=== PATIENT | male | born 1950 | race Caucasian/White ===

== ENCOUNTER 2017-04-11 12:53 | Emergency (ER) | payer MEDICARE, OTHER, SELFPAY ==
[2017-04-11 12:53] VITALS: BP 191/123; PULSE 68; RESP 28; TEMP 36.7; O2SAT 94; BMI 40.4
[2017-04-11 13:03] VITALS: BP 214/110; PULSE 70; RESP 16; O2SAT 93
[2017-04-11 13:05] VITALS: O2SAT 97
--- NOTE | 2017-04-11 13:39 | EKG12_ITS ---
Test Reason : SOB/HTN Blood Pressure : / mmHG Vent. Rate : 070 BPM Atrial Rate : 070 BPM P-R Int : 152 ms QRS Dur : 152 ms QT Int : 444 ms P-R-T Axes : 031 -30 005 degrees QTc Int : 479 ms Normal sinus rhythm Left axis deviation Right bundle branch block Abnormal ECG Confirmed by HOWARD CORBETT ([id number]), purchase request editor ADELINA BALL ([id number] on 04/15/2017 1:07:27 PM Referred By: IGNACIA Confirmed By:HOWARD CORBETT
--- NOTE | 2017-04-11 13:39 | RAD_ITS ---
STUDY: X-RAY CHEST REASON FOR EXAM: Male, 66 years old. Chest pain. TECHNIQUE: PA and lateral views of the chest. COMPARISON: None. FINDINGS: EKG electrodes are seen. The lungs are clear and expanded. There is no demonstrated pleural abnormality. Normal size heart. Normal mediastinum and nasir. Normal visualized pulmonary arteries. Normal visualized aortic arch and descending thoracic aorta. Normal visualized thoracic spine. Normal visualized ribs, clavicles, and shoulders. There is no demonstrated abnormality of the visualized soft tissue structures of the upper abdomen. RAD/Chest PA and Lateral IMPRESSION: Normal x-ray examination of the chest. Electronically Signed: Naldo Enriquez MD at 14:49 EST Tel [phone], Service support ,
[2017-04-11 13:44] VITALS: O2SAT 97
--- NOTE | 2017-04-11 13:45 | ED.DCSUM_ITS ---
- ER Visit Summary Date of Service: 04/11/17 Chief Complaint: Shortness of breath History of Present Illness: The patient is a 66 M since last evening he has been short of breath. He does have a history of hypertension and is currently on 3 different antihypertensive medications. He was recently started on hydralazine yesterday. He denies any history of DVT or PE. He has no chest pain. No pleuritic chest pain. No hemoptysis. He has had no calf or leg pain or swelling. He denies any recent travel, surgery or mobilization. He did have flulike symptoms approximately 5 weeks ago. He denies any fever. He denies any black stool. Denies any significant cough. No hemoptysis. Physical Examination: Well appearing male. Vital signs are stable afebrile. His pulse ox is only 93% room air no signs of hypoxia. He states he feels much better on the oxygen. HEENT exam unremarkable. Neck nontender no lymphadenopathy no JVD. Lungs clear to auscultation bilaterally. Heart regular rate and rhythm no murmur rate in the 70s. Abdomen soft nontender normal bowel sounds no peritoneal signs. He is moving all 4 extremities. Neurovascular intact. Calves are nontender without edema or cords. Neurologically is awake and alert without focal motor deficits. Test Results: CBC normal with a normal white count of 9 H&H is 17 and 51. Electrolytes unremarkable with a normal creatinine and gap. Troponin normal. EKG sinus rhythm rate is 70 with a right bundle branch block but no acute abnormality no acute signs of ischemia or NE. X-ray shows normal cardiac silhouette and mediastinum. No infiltrate. No signs of failure. No effusions. Read by myself and the radiologist. Emergency Department Course and Treatment: Older male with shortness of breath. Treatment Plan: Exam patient is doing much better at 1608. He believes that he now remembers he ate some old hotdogs and thinks he had food poisoning causing his nausea and vomiting. He never had diarrhea with it. He states he is feeling much better now he wants to be discharged to home. I had a long discussion with he and his daughter went over all test results with him. Currently he meets no criteria for admission. Disposition: dc Impression: Acute dyspnea of the of uncertain etiology. History of hypertension This note was generated with [employer] software. It may contain incorrect words, spelling, and punctuation that were not noted in review of the chart prior to signing ED Disposition - Plan for ED Patient: Chief Complaint: Shortness of Breath Referrals: Scott Obrien Chi, MD [Primary Care Provider] -
[2017-04-11 13:57] LABS: Absolute Lymphocyte Count 1.92 X10^3/ul (0.83-4.51); Absolute Neutrophil Count 6.6 X10^3/uL (2.0-7.7); Basophil# 0.02 X10^3/uL; Basophil% 0.2 % (0-1); Eosinophil# 0.01 X10^3/uL; Eosinophils% 0.1 % (0-5); Hematocrit 51.2 % (40-54); Hemoglobin 17.3 g/dl (13.0-16.5); Lymphocyte # 1.92 X10^3/ul (4.0); Lymphocyte % 20.7 % (19-41); Mean Corp Hgb Conc 33.8 g/gl (32-36); Mean Corpuscular Hgb 28.1 pg (27.0-32.0); Mean Corpuscular Volume 83.3 fL (80-94); Mean Platelet Vol. 9.6 fl (6.2-12.0); Monocyte# 0.76 X10^3/uL; Monocyte% 8.2 % (0-10); Neutrophil # 6.57 X10^3/uL (2.7-7.7); Neutrophil % 70.7 % (47-70); Platelet Count 268 K/mm3 (150-450); RBC Distribution Width CV 14.3 % (11.6-14.6); RBC Distribution Width SD 43.8 fl (35.1-43.9); Red Blood Count 6.15 M/mm3 (4.6-6.2); White Blood Count 9.3 K/mm3 (4.4-11.0)
[2017-04-11 13:59] LABS: POSITIVE COUNT NO; POSITIVE DIFFERENTIAL NO; POSITIVE MORPHOLOGY NO
[2017-04-11 14:06] LABS: Anion Gap 9 (5-15); BUN 17 mg/dL (7-18); Calcium,Total 9.9 mg/dL (8.5-10.1); Chloride 100 mmol/L (98-107); Creatinine, Serum 1.06 mg/dL (0.70-1.30); EST Glomerular Filtration Rate 74 mL/min (>60); Est Glom Filt Rate - Afr Amer 90 mL/min (>60); Estimated Creatinine Clearance 66.32 ml/min; Glucose 130 mg/dL (74-106); Potassium 3.5 mmol/L (3.5-5.1); Sodium Level 136 mmol/L (136-145)
[2017-04-11 15:35] VITALS: BP 171/99; PULSE 67; RESP 16; O2SAT 94
--- NOTE | 2017-04-11 16:12 | ED.DEP ---
ED Disposition - Plan for ED Patient: Disposition: Home or Assisted Living Chief Complaint: Shortness of Breath Instructions: ED Dyspnea Shortness of Breath Referrals: Scott Obrien Chi, MD [Primary Care Provider] - 3-5 Days if not improving Additional Instructions: Follow-up your primary care physician next week. Return to the ER if you are feeling worse. Your labs, chest x-ray and EKG were normal today.
== END 2017-04-11 16:29 | disposition home or self-care (01) ==
PROVIDERS: Emergency Provider Emergency Medicine; Family Provider Family Medicine Geriatric Medicine; PCP Family Medicine Geriatric Medicine
DX: R06.00 Dyspnea, unspecified (principal); I10 Essential (primary) hypertension; I45.10 Unspecified right bundle-branch block; R11.2 Nausea with vomiting, unspecified; E78.00 Pure hypercholesterolemia, unspecified; Z90.49 Acquired absence of other specified parts of digestive tract; Z79.899 Other long term (current) drug therapy
CPT/HCPCS: 71046; 80048; 84484; 85025; 93005; 99285; A4216

== ENCOUNTER → 2017-04-24 14:11 | Outpatient (CLI) | payer MEDICARE, OTHER, SELFPAY ==
[2017-04-24 16:28] LABS: Protein, Urine (Random) 13.6 mg/dL (<11.9); Protein:Creat Ratio 223 mg/g CRE (0-200)
[2017-04-24 16:51] LABS: Albumin, Serum 3.6 g/dL (3.2-5.0); BUN 17 mg/dL (7-18); BUN/Creat Ratio 15.2 RATIO (10-20); Chloride 103 mmol/L (98-107); Creatinine, Serum 1.12 mg/dL (0.70-1.30); EST Glomerular Filtration Rate 70 mL/min (>60); Est Glom Filt Rate - Afr Amer 84 mL/min (>60); Glucose 81 mg/dL (74-106); Phosphorus 2.9 mg/dL (2.5-4.9); Potassium 3.8 mmol/L (3.5-5.1); Sodium Level 139 mmol/L (136-145)
== END ==
PROVIDERS: Family Provider Family Medicine Geriatric Medicine; PCP Family Medicine Geriatric Medicine; Visit Provider Internal Medicine Nephrology
DX: N18.2 Chronic kidney disease, stage 2 (mild) (principal); R80.9 Proteinuria, unspecified
CPT/HCPCS: 36415; 80069; 82570; 84156

== ENCOUNTER → 2017-08-04 09:50 | Outpatient (CLI) | payer MEDICARE, OTHER, SELFPAY ==
[2017-08-04 12:56] LABS: Basophil# 0.03 X10^3/uL; Basophil% 0.4 % (0-1); Eosinophil# 0.13 X10^3/uL; Eosinophils% 1.9 % (0-5); Hematocrit 45.7 % (40-54); Hemoglobin 15.4 g/dl (13.0-16.5); Lymphocyte % 44.3 % (19-41); Mean Corp Hgb Conc 33.7 g/gl (32-36); Mean Corpuscular Hgb 29.4 pg (27.0-32.0); Mean Corpuscular Volume 87.2 fL (80-94); Mean Platelet Vol. 9.5 fl (6.2-12.0); Monocyte# 0.72 X10^3/uL; Monocyte% 10.3 % (0-10); Neutrophil % 42.8 % (47-70); Platelet Count 233 K/mm3 (150-450); RBC Distribution Width CV 14.9 % (11.6-14.6); RBC Distribution Width SD 48.3 fl (35.1-43.9); Red Blood Count 5.24 M/mm3 (4.6-6.2)
[2017-08-04 12:58] LABS: POSITIVE COUNT NO; POSITIVE DIFFERENTIAL NO; POSITIVE MORPHOLOGY NO
[2017-08-04 13:19] LABS: Vitamin D,25 Hydroxy 19.8 ng/mL (29.95-100.01)
[2017-08-04 13:27] LABS: AST(SGOT) 20 U/L (15-37); Alanine Aminotransfer ALT/SGPT 26 U/L (16-61); Albumin, Serum 3.6 g/dL (3.2-5.0); Alkaline Phosphatase 82 U/L (45-117); Anion Gap 9 (5-15); BUN 18 mg/dL (7-18); BUN/Creat Ratio 15.5 RATIO (10-20); Chloride 104 mmol/L (98-107); Creatinine, Serum 1.16 mg/dL (0.70-1.30); EST Glomerular Filtration Rate 67 mL/min (>60); Est Glom Filt Rate - Afr Amer 81 mL/min (>60); Globulin 3.7 g/dL (2.2-4.2); Glucose 97 mg/dL (74-106); PSA,Total - Annual Screen 4.98 ng/mL (0.00-4.00); Potassium 3.8 mmol/L (3.5-5.1); Protein, Total 7.3 g/dL (6.4-8.2); Sodium Level 142 mmol/L (136-145); Thyroid Stim Hormone (TSH) 1.94 uIU/mL (0.358-3.74)
[2017-08-05 14:42] LABS: Hep C Antibodies <0.1 s/co ratio (0.0-0.9)
== END ==
PROVIDERS: Family Provider Family Medicine Geriatric Medicine; PCP Family Medicine Geriatric Medicine; Visit Provider Family Medicine Geriatric Medicine
DX: E55.9 Vitamin D deficiency, unspecified (principal); I10 Essential (primary) hypertension; F52.8 Other sexual dysfunction not due to a substance or known physiological condition; Z12.5 Encounter for screening for malignant neoplasm of prostate; Z13.89 Encounter for screening for other disorder
CPT/HCPCS: 36415; 80053; 82306; 84153; 84403; 84443; 85025; 86803; G0103

== ENCOUNTER → 2017-09-25 11:23 | Outpatient (CLI) | payer MEDICARE, OTHER, SELFPAY | PROVIDERS: Family Provider Family Medicine Geriatric Medicine; PCP Family Medicine Geriatric Medicine; Visit Provider Internal Medicine Cardiovascular Disease | DX: R00.1 Bradycardia, unspecified (principal) | CPT/HCPCS: 93225; 93226 ==

== ENCOUNTER → 2018-02-02 13:49 | Outpatient (CLI) | payer MEDICARE, OTHER, SELFPAY ==
[2017-09-25 10:37] VITALS: BMI 43.7
[2018-02-02 15:04] LABS: Absolute Lymphocyte Count 4.11 X10^3/ul (0.83-4.51); Absolute Neutrophil Count 3.3 X10^3/uL (2.0-7.7); Basophil# 0.04 X10^3/uL; Basophil% 0.5 % (0-1); Eosinophils% 2.3 % (0-5); Hematocrit 45.9 % (40-54); Hemoglobin 14.7 g/dl (13.0-16.5); Lymphocyte # 4.11 X10^3/ul (4.0); Lymphocyte % 48.2 % (19-41); Mean Corpuscular Hgb 28.4 pg (27.0-32.0); Mean Corpuscular Volume 88.6 fL (80-94); Mean Platelet Vol. 9.5 fl (6.2-12.0); Monocyte# 0.84 X10^3/uL; Monocyte% 9.8 % (0-10); Neutrophil # 3.33 X10^3/uL (2.7-7.7); Neutrophil % 39.1 % (47-70); Platelet Count 206 K/mm3 (150-450); RBC Distribution Width CV 13.7 % (11.6-14.6); RBC Distribution Width SD 44.3 fl (35.1-43.9); Red Blood Count 5.18 M/mm3 (4.6-6.2); White Blood Count 8.5 K/mm3 (4.4-11.0)
[2018-02-02 15:08] LABS: POSITIVE COUNT NO; POSITIVE DIFFERENTIAL NO; POSITIVE MORPHOLOGY NO; Protein, Urine (Random) < 6.0 mg/dL (<11.9)
[2018-02-02 15:28] LABS: Vitamin D,25 Hydroxy 38.5 ng/mL (29.95-100.01)
[2018-02-02 15:41] LABS: AST(SGOT) 20 U/L (15-37); Alanine Aminotransfer ALT/SGPT 24 U/L (16-61); Albumin, Serum 3.6 g/dL (3.2-5.0); Alkaline Phosphatase 74 U/L (45-117); Anion Gap 6 (5-15); BUN 16 mg/dL (7-18); BUN/Creat Ratio 15.2 RATIO (10-20); Calcium,Total 9.2 mg/dL (8.5-10.1); Chloride 104 mmol/L (98-107); Creatinine, Serum 1.05 mg/dL (0.70-1.30); EST Glomerular Filtration Rate 75 mL/min (>60); Est Glom Filt Rate - Afr Amer 91 mL/min (>60); Globulin 3.6 g/dL (2.2-4.2); Glucose 89 mg/dL (74-106); Phosphorus 2.6 mg/dL (2.5-4.9); Potassium 3.6 mmol/L (3.5-5.1); Protein, Total 7.2 g/dL (6.4-8.2); Sodium Level 140 mmol/L (136-145); Thyroid Stim Hormone (TSH) 1.84 uIU/mL (0.358-3.74)
--- OUTSIDE RECORDS SUMMARY | 2018-05-07 05:22 | XMS RPT_ITS ---
:1950 Author Organization OHIP Support Name Relationship Address Phone R Unavailable Unavailable Unavailable KRIS CLEMONS Unavailable [address] + [place] [address] RONNIE CLEMONS Unavailable 1 + [place] [address] R Unavailable Unavailable Unavailable KRIS CLEMONS Unavailable [address] + [place] [address] RONNIE CLEMONS Unavailable 1 + [place] [address] R Unavailable Unavailable Unavailable KACIKRIS GARCIA Unavailable [address] + [place] [address] RONNIE CLEMONS Unavailable 1 + [place] [address] R Unavailable Unavailable Unavailable KRIS CLEMONS Unavailable [address] + [place] [address] RONNIE CLEMONS Unavailable 1 + [place] [address] R Unavailable Unavailable Unavailable KRIS CLEMONS Unavailable [address] + [place] [address] RONNIE CLEMONS Unavailable 1 + [place] [address] R Unavailable Unavailable Unavailable KRIS CLEMONS Unavailable [address] + [place] [address] RONNIE CLEMONS Unavailable Unavailable + R Unavailable Unavailable Unavailable KRIS CLEMONS Unavailable [address] + [place] [address] RONNIE CLEMONS Unavailable . + ., [place] . R Unavailable Unavailable Unavailable KRIS CLEMONS Unavailable [address] + [place] [address] RONNIE CLEMONS Unavailable 1 + [place] [address] R Unavailable Unavailable Unavailable KRIS CLEMONS Unavailable [address] + [place] [address] R Unavailable Unavailable Unavailable KRIS CLEMONS Unavailable [address] + [place] [address] R Unavailable Unavailable Unavailable KACIKRIS GARCIA Unavailable [address] + [place] [address] R Unavailable Unavailable Unavailable KRIS CLEMONS Unavailable [address] + [place] [address] R Unavailable Unavailable Unavailable KACIKRIS GARCIA Unavailable [address] + [place] [address] R Unavailable Unavailable Unavailable KRIS CLEMONS Unavailable [address] + [place] [address] Care Team Providers Name Role Phone Micah, Scott Chi Attending Unavailable Micah, Scott Chi Primary Care Unavailable Rocio De La Vega Attending Unavailable Micah, Scott Chi Primary Care Unavailable Micah, Scott Chi Primary Care Unavailable Houston Caro Attending Unavailable Rocio De La Vega Attending Unavailable Rocio De La Vega Referring Unavailable Micah, Scott Chi Primary Care Unavailable Rocio De La Vega Attending Unavailable Micah, Scott Chi Primary Care Unavailable Christy Rodriguez Attending Unavailable Rocio De La Vega Attending Unavailable Micah, Scott Chi Primary Care Unavailable Micah, Scott Chi Attending Unavailable Micah, Scott Chi Primary Care Unavailable Christy Rodriguez Attending Unavailable Christy Rodriguez Attending Unavailable MoodisRonan morgan Attending Unavailable Micah, Scott Chi Referring Unavailable Micah, Scott Chi Primary Care Unavailable Ronan Jain Attending Unavailable Ronan Jain Referring Unavailable Micah, Scott Chi Primary Care Unavailable Ronan Jain Attending Unavailable Micah, Scott Chi Referring Unavailable Micah, Scott Chi Primary Care Unavailable Ronan Jain Attending Unavailable Ronan Jain Referring Unavailable PROBLEMS PROBLEMS DATE TYPE CONDITION / CODE ATTENDING STATUS SOURCE 02/11/2018 Unknown N18.2 - Chronic Rocio De La Vega Active [place] kidney disease, Community stage 2 (mild) / Hospital N18.2(ICD-10) Repository 02/11/2018 Unknown R80.9 - Proteinuria, Rocio De La Vega Active [place] unspecified / Community R80.9(ICD-10) Hospital Repository 10/13/2017 Unknown I45.10 - Unspecified MoodispawRonan Active [place] right bundle-branch Community block / Hospital I45.10(ICD-10) Repository 10/13/2017 Unknown I49.3 - Ventricular Moodispamaged, Ronan Active [place] premature Community depolarization / Hospital I49.3(ICD-10) Repository 09/25/2017 Unknown I10 - Essential MoodispawRonan Active [place] (primary) Community hypertension / Hospital I10(ICD-10) Repository 10/27/2017 Unknown R00.1 - Bradycardia, Moodispaw, Ronan Active [place] unspecified / Community R00.1(ICD-10) Hospital Repository 08/04/2017 Unknown E55.9 - Vitamin D Micah, Scott Chi Active [place] deficiency, Community unspecified / Hospital E55.9(ICD-10) Repository 08/04/2017 Unknown 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.8 - Other sexual Micah, Scott Chi [facility] [place] dysfunction not due Community to a substance or Hospital known physiological Repository condition / F52.8(ICD-10) 08/04/2017 Unknown Z12.5 - Encounter Micah, Scott Chi [facility] [place] for screening for Community malignant neoplasm Hospital of prostate / Repository Z12.5(ICD-10) 08/04/2017 Unknown Z13.89 - Encounter Micah, Scott Chi [facility] [place] for screening for Community other disorder / Hospital Z13.89(ICD-10) Repository PROCEDURES PROCEDURES No Procedure Records FoundRESULTS RESULTS CBC W/DIFF, AUTOMATED Collected: 02/02/2018 Status: F Source: [place] 1:53 PM [facility] REPOSITORY Order Comment: DR DE LA VEGA ORDERED RENAL,PROTEIN CREATININE URINE ONLY TYPE CODE TESTS RESULT OUT OF RANGE REFERENCE UNITS LAB L100.1000 4.4-11.0 K/mm3 Normal WBC 8.5 LAB L100.1200 4.6-6.2 M/mm3 Normal RBC 5.18 LAB L100.1300 13.0-16.5 g/dl Normal HGB 14.7 LAB L100.1400 40-54 % Normal HCT 45.9 LAB L100.1500 80-94 fL Normal MCV 88.6 LAB L100.1600 27.0-32.0 pg Normal MCH 28.4 LAB L100.1700 32-36 g/gl Normal MCHC 32.0 LAB L100.1810 11.6-14.6 % Normal RDW CV 13.7 LAB L100.1820 35.1-43.9 fl High RDW SD 44.3 LAB L100.1900 150-450 K/mm3 Normal PLT 206 LAB L100.2000 6.2-12.0 fl Normal MPV 9.5 LAB L100.2100 47-70 % Low NEUT% 39.1 LAB L100.2200 19-41 % High LY% 48.2 LAB L100.2300 0-10 % Normal MONO% 9.8 LAB L100.2400 0-5 % Normal EO% 2.3 LAB L100.2500 0-1 % Normal BASO% 0.5 LAB L100.2550 0.0-0.9 % Normal IM GRAN % 0.100 Result Comment: IG% - Immature Granulocytes (promyelocytes, myelocytes and metamyelocytes) > 1% indicates that a LEFT SHIFT is Present. LAB L100.2620 2.0-7.7 X10 3/uL Normal Absolute Neut 3.3 LAB L100.2720 0.83-4.51 X10 3/ul Normal Absolute Lymph 4.11 Performed By: #### L100.0100 #### [facility] [address] [place], [place], [id number] PROTEIN+CREATININE Collected: Status: F Source: [place] RATIO,URINE 02/02/2018 1:53 PM [facility] REPOSITORY Order Comment: DR DE LA VEGA ORDERED RENAL,PROTEIN CREATININE URINE ONLY TYPE CODE TESTS RESULT OUT OF RANGE REFERENCE UNITS LAB L501.1200 NO RANGE EST. mg/dL 31.90 Normal UR CREAT LAB L501.1930 <11.9 mg/dL < 6.0 Normal PROTEIN,UR. RAN. LAB L501.1940 0-200 mg/g CRE Test Normal not performed PROT:CRE RATIO Performed By: #### L501.0900 #### [facility] [address] [place], [place], [address] VITAMIN D,25 HYDROXY Collected: 02/02/2018 Status: F Source: [place] 1:53 PM [facility] REPOSITORY Order Comment: DR DE LA VEGA ORDERED RENAL,PROTEIN CREATININE URINE ONLY TYPE CODE TESTS RESULT OUT OF RANGE REFERENCE UNITS LAB L506.1000 29.95-100.01 ng/mL Normal Vitamin D 38.5 25-OH Result Comment: Vitamin D 25(OH) Status Range Deficiency <20 ng/mL (50nmol/L) Insuffciency 20 - 30 ng/mL (50 - 75 nmol/L) Sufficiency 30 - 100 ng/mL (75 - 250 nmol/L) Toxicity >100 ng/mL (>250 nmol/L) Performed By: #### L506.1000, L509.3000 #### [facility] [address] [place], [address] TESTOSTERONE, SERUM TOTAL Collected: 02/02/2018 Status: F Source: [place] 1:53 PM [facility] REPOSITORY Order Comment: DR DE LA VEGA ORDERED RENAL,PROTEIN CREATININE URINE ONLY TYPE CODE TESTS RESULT OUT OF REFERENCE UNITS RANGE LAB L509.3000 ng/dL Testosterone Normal 274.07 Result Comment: NORMAL REFERENCE RANGES MALE AGE <50 123.06 - 813.86 ng/dL MALE AGE >50 89.98 - 780.10 ng/dL FEMALE PREMENOPAUSE AGE 21 - 60 9.01 - 47.94 ng/dL FEMALE POSTMENOPAUSE AGE 45 - 89 <7.00 - 45.62 ng/dL REFERENCE RANGE AND METHODOLOGY CHANGED 02/05/2017 Performed By: #### L506.1000, L509.3000 #### [facility] [address] [place], [place], [address] COMPREHENSIVE METABOLIC Collected: 02/02/2018 Status: F Source: [place] PROFIL 1:53 PM [facility] REPOSITORY Order Comment: DR DE LA VEGA ORDERED RENAL,PROTEIN CREATININE URINE ONLY TYPE CODE TESTS RESULT OUT OF RANGE REFERENCE UNITS LAB L501.0100 74-106 mg/dL Normal GLU 89 Result Comment: Please note revised GLUCOSE reference range effective 2017. LAB L501.1000 7-18 mg/dL Normal BUN 16 LAB L501.1100 0.70-1.30 mg/dL Normal CREAT,SERUM 1.05 Result Comment: The validity of the calculated GFR AND GFRAA in patients over 70 years has not been determined. Clinical correlation is essential. LAB L501.1110 >60 mL/min Normal EST GFR 75 Result Comment: Non- GFR Calc LAB L501.1115 >60 mL/min Normal EST GFR - AA 91 Result Comment: GFR Calc LAB L501.1300 10-20 RATIO Normal BUN/CRE 15.2 LAB L501.1500 6.4-8.2 g/dL T Normal PROT 7.2 LAB L501.1800 3.2-5.0 g/dL Normal ALB 3.6 LAB L501.1950 2.2-4.2 g/dL Normal GLOB 3.6 LAB L501.2000 0.9-2.4 RATIO Normal A/G 1.0 LAB L501.2200 8.5-10.1 mg/dL CA Normal 9.2 LAB L501.4100 15-37 U/L Normal AST 20 LAB L501.4305 45-117 U/L Normal ALK P 74 LAB L501.4405 16-61 U/L Normal ALT 24 LAB L501.4600 0.20-1.00 mg/dL High T BILI 1.20 LAB L501.5300 136-145 mmol/L NA Normal 140 LAB L501.5600 3.5-5.1 mmol/L K Normal 3.6 LAB L501.5900 98-107 mmol/L CL Normal 104 LAB L501.6100 21.0-32.0 mmol/L Normal CO2 30.0 LAB L501.6200 5-15 Normal GAP 6 Performed By: #### L500.4050, L501.2300, L501.9520 #### [facility] [address] [place], [place], [id number] PHOSPHORUS Collected: 02/02/2018 Status: F Source: [place] 1:53 PM [facility] REPOSITORY Order Comment: DR DE LA VEGA ORDERED RENAL,PROTEIN CREATININE URINE ONLY TYPE CODE TESTS RESULT OUT OF RANGE REFERENCE UNITS LAB L501.2300 2.5-4.9 mg/dL Normal PHOS 2.6 Performed By: #### L500.4050, L501.2300, L501.9520 #### [facility] [address] [place], [place], [address] THYROID STIM HORMONE Collected: 02/02/2018 Status: F Source: [place] (TSH) 1:53 PM [facility] REPOSITORY Order Comment: DR DE LA VEGA ORDERED RENAL,PROTEIN CREATININE URINE ONLY TYPE CODE TESTS RESULT OUT OF RANGE REFERENCE UNITS LAB L501.9520 0.358-3.74 uIU/mL Normal TSH 1.84 Performed By: #### L500.4050, L501.2300, L501.9520 #### [place] [facility] [address] [place], [address] OFFICE VISIT REPORT Observed: 10/13/2017 Status: F Source: [place] 12:34 PM [facility] REPOSITORY [facility] [address] [place] [address] OFFICE VISIT Date of Service: 10/13/17 MR#: [id number] Acct: [id number] Patient: ALIN CLEMONS Rep #: [id number] : 1950 Provider: Ronan Jain MD Age/Sex: 66/M [facility] Status: Signed Intake Vital Signs10/13/17 Blood Pressure 188/90 10/13/17 Blood Pressure Location Lt brachial Intake Visit Reasons: EKG per msg from [place] [employer] Finisher Required: No Accompanied by: None Is patient in pain?: No Allergies carisoprodol Allergy (Verified 10/13/17 10:13) Rash cephalexin Allergy (Verified 10/13/17 10:13) Rash codeine Allergy (Verified 10/13/17 10:13) Vomiting morphine Allergy (Verified 10/13/17 10:13) Vomiting hydralazine Adverse Reaction (Severe, Verified 10/13/17 10:13) Headache Medications Fish Oil/Dha/Epa [Fish Oil 1,200 mg Fish Oil] 1 cap PO DAILY 10/10/14 [History Confirmed 10/13/17] Vitamin E 1,000 unit PO DAILY 10/10/14 [History Confirmed 10/13/17] Krill Oil 500 mg PO DAILY 04/11/17 [History Confirmed 10/13/17] Valsartan/Hydrochlorothiazide [Valsartan-Hctz 320-12.5 mg Tab] 1 ea PO DAILY 04/11/17 [History Confirmed 10/13/17] amlodipine 5 mg tablet 5 mg PO QDAY 08/13/17 [History Confirmed 10/13/17] clonidine 0.2 mg/24 hr weekly transdermal patch 1 patch TRANSDERMAL QWEEK 08/13/17 [History Confirmed 10/13/17] rosuvastatin 10 mg tablet 10 mg PO QDAY 09/23/17 [History Confirmed 10/13/17] ergocalciferol (vitamin D2) 50,000 unit capsule 50,000 unit PO QMONTH cap 09/25/17 [History Confirmed 10/13/17] linaclotide 145 mcg capsule 145 mcg PO QDAY 09/25/17 [History Confirmed 10/13/17] magnesium oxide 400 mg capsule 400 mg PO QDAY cap 09/25/17 [History Confirmed 10/13/17] potassium chloride ER 20 mEq tablet,extended release(part/cryst) 20 meq PO QDAY tab 09/25/17 [History Confirmed 10/13/17] nebivolol 10 mg tablet 5 mg PO QDAY tab 09/29/17 [History Confirmed 10/13/17] Assessment AND Plan Orders Orders: Nursing Note Patient here for EKG after decreasing Bystolic to 5mg. BP's at home 140-150/80's at home with HR's in the 50's. States that he feels well and that his BP's are always high in the office. Discussed with Manpreet Souza NP. Advised patient that we will keep all meds the same at this time and he should monitor his BP and heart rate at home. Patient to call if BP's are consistently higher than 140's systolic or HR is consistently below 50, or any complaints of lightheadedness or dizziness. 10/13/17 1234 <Electronically signed by Ronan Jain MD> Date Ronan Jain MD Cosigner Signature: Date (if applicable) CC: PATEL Souza 12 LEAD EKG PERFORMED Observed: 10/13/2017 Status: F Source: [place] BY NARENDRA 9:30 AM [place] [address] [place] [address] 12 Lead EKG performed by [facility] 10/13/17929 MR#: [id number] Acct: [id number] Name: ALIN CLEMONS Rep #: [id number] : 1950 66 From: Ronan Jain MD Attending Dr: Ronan Jain MD Status: DEP AMB Ordering Dr: Ronan Jain MD Date: 10/13/17 [place] [facility] Sex: M C Admitted: BMS/12 Lead EKG performed by [facility] ECG Report Interpretation Sinus Bradycardia with occasional PVCsRight bundle branch block. 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 [address] [place] [address] OFFICE VISIT Date of Service: 09/25/17 MR#: [id number] Acct: [id number] Name: ALIN CLEMONS Rep #: [id number] : 1950 Provider: Ronan Jain MD Age/Sex: 66/M Location: [facility] Status: Signed HPI HPI Details: ALIN CLEMONS, is a 66 M who presents to the office today for for outpatient cardiovascular follow-up. His last outpatient visit was on 10/10/2014. At that time he was being followed for concerns of underlying preoperative assessment based upon an abnormal ECG with a right bundle branch block pattern, hyperlipidemia, and hypertension. Since that time he has not had to return for additional cardiovascular diagnostic studies or therapeutic intervention. He states at the moment he feels well overall. He is not complaining of any ongoing issues of classic angina pectoris type symptoms at rest or with exertion. There has been no issues of obvious CHF or pulmonary edema. He denies any near syncope or syncope. He states if he stays bent over too long and then gets up quickly he can feel transiently lightheaded. He continues to monitor his blood pressures at home. He notes at home his blood pressures are usually under good control per he notes they only seem to increase when he goes to the physician's office. 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 He states he was referred back based upon concerns that he may be somewhat more bradycardic than usual. An ECG was obtained. He was in sinus bradycardia with a ventricular rate of approximately 50 bpm with his continued right bundle branch block pattern. Intake Vital Signs09/25/17 Height 5 ft 5 in 09/25/17 Weight: 263 lb 09/25/17 Body Mass Index (BMI) 43.7 09/25/17 Blood Pressure 194/90 Intake Visit Reasons: Bradycardia/Ref. [place] Allergies carisoprodol Allergy (Verified 09/25/17 10:37) Rash cephalexin Allergy (Verified 09/25/17 10:37) Rash codeine Allergy (Verified 09/25/17 10:37) Vomiting morphine Allergy (Verified 09/25/17 10:37) Vomiting hydralazine Adverse Reaction (Severe, Verified 09/25/17 10:37) Headache Medications Fish Oil/Dha/Epa [Fish Oil 1,200 mg Fish Oil] 1 cap PO DAILY 10/10/14 [History Confirmed 09/25/17] Vitamin E 1,000 unit PO DAILY 10/10/14 [History Confirmed 09/25/17] Krill Oil 500 mg PO DAILY 04/11/17 [History Confirmed 09/25/17] Valsartan/Hydrochlorothiazide [Valsartan-Hctz 320-12.5 mg Tab] 1 ea PO DAILY 04/11/17 [History Confirmed 09/25/17] amlodipine 5 mg tablet 5 mg PO QDAY 08/13/17 [History Confirmed 09/25/17] clonidine 0.2 mg/24 hr weekly transdermal patch 1 patch TRANSDERMAL QWEEK 08/13/17 [History Confirmed 09/25/17] nebivolol 10 mg tablet 10 mg PO QDAY 09/23/17 [History Confirmed 09/25/17] rosuvastatin 10 mg tablet 10 mg PO QDAY 09/23/17 [History Confirmed 09/25/17] ergocalciferol (vitamin D2) 50,000 unit capsule 50,000 unit PO QMONTH cap 09/25/17 [History Confirmed 09/25/17] linaclotide 145 mcg capsule 145 mcg PO QDAY 09/25/17 [History Confirmed 09/25/17] magnesium oxide 400 mg capsule 400 mg PO QDAY cap 09/25/17 [History Confirmed 09/25/17] potassium chloride ER 20 mEq tablet,extended release(part/cryst) 20 meq PO QDAY tab 09/25/17 [History Confirmed 09/25/17] [facility] Medical History RBBB (right bundle branch block) (Acute) Premature ventricular contraction (Acute) Hyperlipidemia (Chronic) Preop cardiovascular exam (Acute) CKD (chronic kidney disease) stage 3, GFR 30-59 ml/min (Chronic) HTN (hypertension) (Chronic) Bradycardia (Acute) Acute calculous cholecystitis (Inactive) Surgical History History of ankle surgery (Resolved) History of knee replacement procedure of left knee (Resolved) History of laparoscopic cholecystectomy (Resolved) Family History Father Sudden cardiac Myocardial infarction, Onset Age: 52 Mother Hypertension Social History Smoking Status: Never smoker alcohol intake: never ROS Const Const: Negative for fatigue, weakness, weight gain, weight loss, frequent falls or excessive sweating Eyes Eyes: Negative for change in vision, blurry vision or transient loss of vision ENT ENT: Negative for dizziness or balance problems Cardio Chest Pain: No Palpitations: No Edema: None Muscle aches with walking: None Resp Respiratory: Negative for SOB with activity or SOB at rest GI GI: Negative vomiting or vomiting blood/hematemesis : Negative for hematuria Musc Musc: Positive for joint pain (HX Arthritis); negative for balance problems, muscle aches/ myalgia or muscle weakness Skin Skin: Negative non-healing lesions or rash Neuro Neuro: Negative for weakness, blurry vision, dizziness, lightheadedness, frequent falls or orthostatic symptoms [place] Hematologic/Lymphatic: Negative for easy bleeding Endo Endo: Negative for fatigue or excessive sweating Psych Psych: Negative for anxiety or depression Allergy Allergy/Immunology: Negative for hives, Negative for rash Cardiology Exam Const Appearance: cooperative, healthy appearing, comfortable, no acute distress, well developed and well groomed Nutritional Appearance: overweight Orientation: alert, awake and oriented x3 Head Head: normal to inspection and normocephalic Ears: hearing grossly normal bilaterally Nose: external nose normal Face and Sinus: face symmetric Mouth: oral mucosae normal Teeth and gingiva: fair dentition Eyes Eyelids: eyelids normal Conjunctivae: conjunctivae normal Pupils: PERRL EOM: EOM intact bilaterally Neck Neck: normal visual inspection and full ROM Carotids: normal carotid upstroke Chest Chest inspection: normal inspection of the chest and symmetric chest movement Auscultation: Bilateral: Clear to Auscultation Cardio Palpation: normal PMI Rhythm: regular rhythm Heart sounds: S1 normal and S2 normal GI GI: normal to inspection, bowel sounds present, soft and no hepatosplenomegaly Neuro General: alert, awake, gait normal, moves all extremities, no focal sensory deficit and no focal motor deficits Skin Skin: no rashes or lesions noted Extremities Pulses: Normal: Right Radial Pulse, Left Radial Pulse Lower Extremity Edema: None: Bilateral Psych Psychological: normal affect Supplemental Info He did have a transthoracic echocardiogram on 06/26/2015. According to the report his LV was thought to be normal with an LVEF of 60% with mild concentric LVH, mild TR, and an estimated RV systolic pressure of 32 mmHg. He also underwent diagnostic cardiac catheterization at [facility] on 08/02/2009. At that time his left ventricle was normal with an LVEF of 65%. He had minimal luminal irregularities involving his LAD and LCx system. Assessment AND Plan 1. Bradycardia R00.1 Plan At the moment he does demonstrate evidence of underlying sinus bradycardia. He has had no acute symptoms associated with this. This may be secondary to his medications with respect to his beta-kannan and his clonidine/Catapres patch. At the present time he is going to go through a 24-hour Holter monitor to evaluate his average rate as well as his rhythm. Depending upon the findings consideration may be given to adjusting his rate limiting medication dosages to minimize concerning bradycardia dysrhythmias. If those medications are adjusted and his blood pressure elevates then he may need further adjustment of other antihypertensive medications that would not interfere with his underlying rate Orders Orders: 2. Premature ventricular beat I49.3 Plan He has a history of premature ventricular complexes. He will be further assessed with a 24-hour Holter monitor for any obvious concerns that would factor into his ongoing evaluation and care. Orders Orders: 3. RBBB (right bundle branch block) I45.10 Plan He does have a history of a right bundle branch block. This is not a new finding for him. He has been evaluated in the past both noninvasively and invasively. Orders Orders: 4. Hyperlipidemia, unspecified hyperlipidemia type E78.5 Plan He should continue risk factor modification and medical management as deemed appropriate 5. Essential hypertension I10 Plan He is his blood pressure is elevated today. However he states at home his blood pressure readings are within good control. This is also been documented by Dr. De La Vega's office. Thus at the moment he will continue his current medical management and follow-up. Orders Orders: Plan Detail Additional Comments Thank you for allowing me to participate in the care of your patient. Please don't hesitate to call if any issues arise. This note was generated using a voice recognition system and there may be incorrect words, spelling or punctuation that were not noted when reviewing the office note prior to saving. Follow Up 6 Months (PFM) Coding Level of Care Code Off vis,est,level 4 Diagnoses Bradycardia R00.1 Premature ventricular beat I49.3 RBBB (right bundle branch block) I45.10 Hyperlipidemia, unspecified hyperlipidemia type E78.5 Hyperlipidemia type: unspecified Essential hypertension I10 Hypertension type: essential hypertension Coding Level of Care Code Off vis,est,level 4 Diagnoses Bradycardia R00.1 Premature ventricular beat I49.3 RBBB (right bundle branch block) I45.10 Hyperlipidemia, unspecified hyperlipidemia type E78.5 Hyperlipidemia type: unspecified Essential hypertension I10 Hypertension type: essential hypertension 09/25/17 1125 <Electronically signed by Ronan Jain MD> Date Ronan Jain MD Cosigner Signature: Date (if applicable) CC: Rocio De La Vega DO; Scott Obrien MD 12 LEAD EKG PERFORMED Observed: 09/25/2017 Status: F Source: [place] BY [facility] 10:26 AM [facility] REPOSITORY [facility] [address] [place] [address] 12 Lead EKG performed by [facility] 09/25/17 1025 MR#: [id number] Acct: [id number] Name: ALIN CLEMONS Rep #: [id number] : 1950 66 From: Ronan Jain MD Attending Dr: Ronan Jain MD Status: DEP AMB Ordering Dr: Ronan Jain MD Date: 09/25/17 [facility] [facility] Sex: M C Admitted: [facility]/12 Lead EKG performed by [facility] ECG Report Interpretation Marked sinus Bradycardia Right bundle branch block. ABNORMAL Electronically signed on 09/25/2017 at 11:39 by Ronan Jain [employer] Version 8610 09/25/17 1140 Date Ronan Jain MD CC: Scott Obrien MD Date Dictated: 09/25/17 1025 Date Transcribed: 09/25/17 1025 [employer] Artillery Cannoneer: PM Signed CBC W/DIFF, AUTOMATED Collected: 08/04/2017 Status: F Source: JAM 9:56 AM [facility] REPOSITORY TYPE CODE TESTS RESULT OUT OF RANGE REFERENCE UNITS LAB L100.1000 4.4-11.0 K/mm3 Normal WBC 7.0 LAB L100.1200 4.6-6.2 M/mm3 Normal RBC 5.24 LAB L100.1300 13.0-16.5 g/dl Normal HGB 15.4 LAB L100.1400 40-54 % Normal HCT 45.7 LAB L100.1500 80-94 fL Normal MCV 87.2 LAB L100.1600 27.0-32.0 pg Normal MCH 29.4 LAB L100.1700 32-36 g/gl Normal MCHC 33.7 LAB L100.1810 11.6-14.6 % High RDW CV 14.9 LAB L100.1820 35.1-43.9 fl High RDW SD 48.3 LAB L100.1900 150-450 K/mm3 Normal PLT 233 LAB L100.2000 6.2-12.0 fl Normal MPV 9.5 LAB L100.2100 47-70 % Low NEUT% 42.8 LAB L100.2200 19-41 % High LY% 44.3 LAB L100.2300 0-10 % High MONO% 10.3 LAB L100.2400 0-5 % Normal EO% 1.9 LAB L100.2500 0-1 % Normal BASO% 0.4 LAB L100.2550 0.0-0.9 % Normal IM GRAN % 0.300 Result Comment: IG% - Immature Granulocytes (promyelocytes, myelocytes and metamyelocytes) > 1% indicates that a LEFT SHIFT is Present. LAB L100.2620 2.0-7.7 X10 3/uL Normal Absolute Neut 3.0 LAB L100.2720 0.83-4.51 X10 3/ul Normal Absolute Lymph 3.10 Performed By: #### L100.0100 #### [facility] [address] [place], [place], [address] VITAMIN D,25 HYDROXY Collected: 08/04/2017 Status: F Source: VARNELL 9:56 AM [facility] REPOSITORY TYPE CODE TESTS RESULT OUT OF REFERENCE UNITS RANGE LAB L506.1000 29.95-100.01 ng/mL Low Vitamin D 19.8 25-OH Result Comment: Vitamin D 25(OH) Status Range Deficiency <20 ng/mL (50nmol/L) Insuffciency 20 - 30 ng/mL (50 - 75 nmol/L) Sufficiency 30 - 100 ng/mL (75 - 250 nmol/L) Toxicity >100 ng/mL (>250 nmol/L) Performed By: #### L506.1000, L509.3000 #### [facility] [address] [facility]. [place], [place], [address] TESTOSTERONE, SERUM TOTAL Collected: 08/04/2017 Status: F Source: JAM 9:56 AM [facility] REPOSITORY TYPE CODE TESTS RESULT OUT OF REFERENCE UNITS RANGE LAB L509.3000 ng/dL Testosterone Normal 284.11 Result Comment: NORMAL REFERENCE RANGES MALE AGE <50 123.06 - 813.86 ng/dL MALE AGE >50 89.98 - 780.10 ng/dL FEMALE PREMENOPAUSE AGE 21 - 60 9.01 - 47.94 ng/dL FEMALE POSTMENOPAUSE AGE 45 - 89 <7.00 - 45.62 ng/dL REFERENCE RANGE AND METHODOLOGY CHANGED 02/05/2017 Performed By: #### L506.1000, L509.3000 #### [facility] [address] [place], [place], [address] COMPREHENSIVE METABOLIC Collected: 08/04/2017 Status: F Source: [facility] 9:56 AM [facility] REPOSITORY TYPE CODE TESTS RESULT OUT OF RANGE REFERENCE UNITS LAB L501.0100 74-106 mg/dL Normal GLU 97 Result Comment: Please note revised GLUCOSE reference range effective 2017. LAB L501.1000 7-18 mg/dL Normal BUN 18 LAB L501.1100 0.70-1.30 mg/dL Normal CREAT,SERUM 1.16 Result Comment: The validity of the calculated GFR AND GFRAA in patients over 70 years has not been determined. Clinical correlation is essential. LAB L501.1110 >60 mL/min Normal EST GFR 67 Result Comment: Non- GFR Calc LAB L501.1115 >60 mL/min Normal EST GFR - AA 81 Result Comment: GFR Calc LAB L501.1300 10-20 RATIO Normal BUN/CRE 15.5 LAB L501.1500 6.4-8.2 g/dL T Normal PROT 7.3 LAB L501.1800 3.2-5.0 g/dL Normal ALB 3.6 LAB L501.1950 2.2-4.2 g/dL Normal GLOB 3.7 LAB L501.2000 0.9-2.4 RATIO Normal A/G 1.0 LAB L501.2200 8.5-10.1 mg/dL CA Normal 9.0 LAB L501.4100 15-37 U/L Normal AST 20 LAB L501.4305 45-117 U/L Normal ALK P 82 LAB L501.4405 16-61 U/L Normal ALT 26 LAB L501.4600 0.20-1.00 mg/dL T Normal BILI 0.90 LAB L501.5300 136-145 mmol/L NA Normal 142 LAB L501.5600 3.5-5.1 mmol/L K Normal 3.8 LAB L501.5900 98-107 mmol/L CL Normal 104 LAB L501.6100 21.0-32.0 mmol/L Normal CO2 29.0 LAB L501.6200 5-15 Normal GAP 9 Performed By: #### L500.4050, L501.9520, L501.9910 #### [facility] [address] [place], [address] THYROID STIM HORMONE Collected: 08/04/2017 Status: F Source: JAM (TSH) 9:56 AM [facility] REPOSITORY TYPE CODE TESTS RESULT OUT OF RANGE REFERENCE UNITS LAB L501.9520 0.358-3.74 uIU/mL Normal TSH 1.94 Performed By: #### L500.4050, L501.9520, L501.9910 #### [facility] [address] [place], [place], [address] PSA,TOTAL - ANNUAL Collected: 08/04/2017 Status: F Source: JAM SCREEN 9:56 AM [facility] REPOSITORY TYPE CODE TESTS RESULT OUT OF REFERENCE UNITS RANGE LAB L501.9910 0.00-4.00 ng/mL High PSA,TOT 4.98 SCREEN Result Comment: This test was performed using the TPSA assay method for the MedAdherence chemistry system. Values obtained with different assay methods cannot be used interchangably. When changing PSA assays in the course of monitoring a patient, additional sequential testing should be carried out to confirm baseline values. Performed By: #### L500.4050, L501.9520, L501.9910 #### [facility] [address] [place], [place], [address] HEPATITIS C ANTIBODIES Collected: 08/04/2017 Status: F Source: JAM 9:56 AM [facility] REPOSITORY TYPE CODE TESTS RESULT OUT OF RANGE REFERENCE UNITS LAB L3100.0650 0.0-0.9 s/co ratio Normal HEP C AB <0.1 Result Comment: Negative: < 0.8 Indeterminate: 0.8 - 0.9 Positive: > 0.9 The CDC recommends that a positive HCV antibody result be followed up with a HCV Nucleic Acid Amplification test (166158). Performed at: [facility] [id number] Morning Show Host: Noe Cho PhD, Phone: [phone] Performed By: #### L3100.0625 #### [facility] (refer to report for specific site) refer to report for address and phone number PROTEIN+CREATININE Collected: Status: F Source: [facility] 04/24/2017 2:20 PM [facility] REPOSITORY TYPE CODE TESTS RESULT OUT OF RANGE REFERENCE UNITS LAB L501.1200 NO RANGE EST. mg/dL Normal UR CREAT 61.00 LAB L501.1930 <11.9 mg/dL High 13.6 PROTEIN,UR.R AN. LAB L501.1940 0-200 mg/g CRE High PROT:CRE 223 RATIO Performed By: #### L501.0900 #### [facility] [address] [place], [place], [address] RENAL PROFILE Collected: 04/24/2017 Status: F Source: [place] 2:20 PM [facility] REPOSITORY TYPE CODE TESTS RESULT OUT OF RANGE REFERENCE UNITS LAB L501.0100 74-106 mg/dL Normal GLU 81 Result Comment: Please note revised GLUCOSE reference range effective 2017. LAB L501.1000 7-18 mg/dL Normal BUN 17 LAB L501.1100 0.70-1.30 mg/dL Normal CREAT,SERUM 1.12 Result Comment: The validity of the calculated GFR AND GFRAA in patients over 70 years has not been determined. Clinical correlation is essential. LAB L501.1110 >60 mL/min Normal EST GFR 70 Result Comment: Non- GFR Calc LAB L501.1115 >60 mL/min Normal EST GFR - AA 84 Result Comment: GFR Calc LAB L501.1300 10-20 RATIO Normal BUN/CRE 15.2 LAB L501.1800 3.2-5.0 g/dL Normal ALB 3.6 LAB L501.2200 8.5-10.1 mg/dL CA Normal 9.0 LAB L501.2300 2.5-4.9 mg/dL Normal PHOS 2.9 LAB L501.5300 136-145 mmol/L NA Normal 139 LAB L501.5600 3.5-5.1 mmol/L K Normal 3.8 LAB L501.5900 98-107 mmol/L CL Normal 103 LAB L501.6100 21.0-32.0 mmol/L Normal CO2 30.0 Performed By: #### L500.3600 #### [facility] [address] [facility] [place], [address] 12 LEAD ELECTROCARDIOGRAM Observed: 04/15/2017 Status: F Source: JAM 1:07 PM [facility] REPOSITORY [facility] Cardiovascular Services [address] [place] [address] 12 Lead EKG 04/11/17 1350 MR#: [id number] Acct: [id number] Name: ALIN CLEMONS Rep #: [id number] : 1950 66 From: Tam Corbett MD Attending Dr: Status: DEP ER Ordering Dr: Houston Caro MD Date: 04/11/17 Location: ED Sex: M C Admitted: Test Reason : SOB/HTN Blood Pressure : / mmHG Vent. Rate : 070 BPM Atrial Rate : 070 BPM P-R Int : 152 ms QRS Dur : 152 ms QT Int : 444 ms P-R-T Axes : 031 -30 005 degrees QTc Int : 479 ms Normal sinus rhythm Left axis deviation Right bundle branch block Abnormal ECG Confirmed by TAM CORBETT ([id number]), acquisition editor ADELINA BALL ([id number]) on 04/15/2017 1:07:27 PM Referred By: IGNACIA Confirmed By:TAM CORBETT 04/15/17 1307 Date Tam Corbett MD CC: Houston Caro MD; Scott Obrien MD Signed EMERGENCY DEPARTMENT Observed: 04/11/2017 Status: F Source: JAM SUMMARY 4:23 PM [facility] REPOSITORY [facility] Medical Records Department [address] [place] [address] Emergency Department Summary 04/11/17 1343 MR#: [id number] Acct: [id number] Name: ALIN CLEMONS Rep #: [id number] : 1950 66 From: Houston Caro MD PCP: Micah MAJOR,Scott Edmondson Status: REG ER - ER Visit Summary Date of Service: 04/11/17 Chief Complaint: Shortness of breath History of Present Illness: The patient is a 66 M since last evening he has been short of breath. He does have a history of hypertension and is currently on 3 different antihypertensive medications. He was recently started on hydralazine yesterday. He denies any history of DVT or PE. He has no chest pain. No pleuritic chest pain. No hemoptysis. He has had no calf or leg pain or swelling. He denies any recent travel, surgery or mobilization. He did have flulike symptoms approximately 5 weeks ago. He denies any fever. He denies any black stool. Denies any significant cough. No hemoptysis. Physical Examination: Well appearing male. Vital signs are stable afebrile. His pulse ox is only 93% room air no signs of hypoxia. He states he feels much better on the oxygen. HEENT exam unremarkable. Neck nontender no lymphadenopathy no JVD. Lungs clear to auscultation bilaterally. Heart regular rate and rhythm no murmur rate in the 70s. Abdomen soft nontender normal bowel sounds no peritoneal signs. He is moving all 4 extremities. Neurovascular intact. Calves are nontender without edema or cords. Neurologically is awake and alert without focal motor deficits. Test Results: CBC normal with a normal white count of 9 H AND H is 17 and 51. Electrolytes unremarkable with a normal creatinine and gap. Troponin normal. EKG sinus rhythm rate is 70 with a right bundle branch block but no acute abnormality no acute signs of ischemia or PR. X-ray shows normal cardiac silhouette and mediastinum. No infiltrate. No signs of failure. No effusions. Read by myself and the radiologist. Emergency Department Course and Treatment: Older male with shortness of breath. Treatment Plan: Exam patient is doing much better at 1608. He believes that he now remembers he ate some old hotdogs and thinks he had food poisoning causing his nausea and vomiting. He never had diarrhea with it. He states he is feeling much better now he wants to be discharged to home. I had a long discussion with he and his daughter went over all test results with him. Currently he meets no criteria for admission. Disposition: dc Impression: Acute dyspnea of the of uncertain etiology. History of hypertension This note was generated with [employer] dictation software. It may contain incorrect words, spelling, and punctuation that were not noted in review of the chart prior to signing ED Disposition - Plan for ED Patient: Chief Complaint: Shortness of Breath Referrals: Scott Obrien Chi, MD [Primary Care Provider] - What to do if you have Problems For any increased pain, shortness of breath, bleeding, nausea or vomiting, chest pain, or any unexpected problems, contact your Primary Care Provider. Call [facility] ([phone]) or report to the closest Emergency Room. Call 911 if necessary. 04/11/17 1623 <Electronically signed by Houston Caro MD> Date Houston Caro MD Cosigner Signature (If Indicated): Date CC: Scott Obrien MD DISCHARGE INSTRUCTION Observed: 04/11/2017 Status: F Source: [place] 4:23 PM [facility] REPOSITORY [facility] Medical Records Department [address] [place] [address] Discharge Instruction 04/11/17 1612 MR#: [id number] Acct: [id number] Name: ALIN CLEMONS Rep #: [id number] : 1950 66 From: Houston Caro MD PCP: Scott Obrien MD, Chi Status: REG ER ED Disposition - Plan for ED Patient: Disposition: Home or Assisted Living Chief Complaint: Shortness of Breath Instructions: ED Dyspnea Shortness of Breath Referrals: Scott Obrien Chi, MD [Primary Care Provider] - 3-5 Days if not improving Additional Instructions: Follow-up your primary care physician next week. Return to the ER if you are feeling worse. Your labs, chest x-ray and EKG were normal today. What to do if you have Problems For any increased pain, shortness of breath, bleeding, nausea or vomiting, chest pain, or any unexpected problems, contact your Primary Care Provider. Call [facility] ([phone]) or report to the closest Emergency Room. Call 911 if necessary. 04/11/17 8723 <Electronically signed by Houston Caro MD> Date Houston Caro MD Cosigner Signature (If Indicated): Date CC: Scott Obrien MD CBC W/DIFF, AUTOMATED Collected: 04/11/2017 Status: F Source: [place] 1:42 PM [facility] REPOSITORY TYPE CODE TESTS RESULT OUT OF RANGE REFERENCE UNITS LAB L100.1000 4.4-11.0 K/mm3 Normal WBC 9.3 LAB L100.1200 4.6-6.2 M/mm3 Normal RBC 6.15 LAB L100.1300 13.0-16.5 g/dl High HGB 17.3 LAB L100.1400 40-54 % Normal HCT 51.2 LAB L100.1500 80-94 fL Normal MCV 83.3 LAB L100.1600 27.0-32.0 pg Normal MCH 28.1 LAB L100.1700 32-36 g/gl Normal MCHC 33.8 LAB L100.1810 11.6-14.6 % Normal RDW CV 14.3 LAB L100.1820 35.1-43.9 fl Normal RDW SD 43.8 LAB L100.1900 150-450 K/mm3 Normal PLT 268 LAB L100.2000 6.2-12.0 fl Normal MPV 9.6 LAB L100.2100 47-70 % High NEUT% 70.7 LAB L100.2200 19-41 % Normal LY% 20.7 LAB L100.2300 0-10 % Normal MONO% 8.2 LAB L100.2400 0-5 % Normal EO% 0.1 LAB L100.2500 0-1 % Normal BASO% 0.2 LAB L100.2550 0.0-0.9 % Normal IM GRAN % 0.100 Result Comment: IG% - Immature Granulocytes (promyelocytes, myelocytes and metamyelocytes) > 1% indicates that a LEFT SHIFT is Present. LAB L100.2620 2.0-7.7 X10 3/uL Normal Absolute Neut 6.6 LAB L100.2720 0.83-4.51 X10 3/ul Normal Absolute Lymph 1.92 Performed By: #### L100.0100 #### [facility] [address] [place], [address] BASIC METABOLIC Collected: 04/11/2017 Status: F Source: [place] PROFILE (BMP) 1:42 PM [facility] REPOSITORY Order Comment: 'TROP' Serial specimen #1, #2, #3, or #4: 1 TYPE CODE TESTS RESULT OUT OF RANGE REFERENCE UNITS LAB L501.0100 74-106 mg/dL High GLU 130 Result Comment: Fasting Glucose result greater than or equal to 126 mg/dL suggests DIABETES MELLITUS per A.D.A. criteria. Please note revised GLUCOSE reference range effective 2017. LAB L501.1000 7-18 mg/dL Normal BUN 17 LAB L501.1100 0.70-1.30 mg/dL Normal CREAT,SERUM 1.06 Result Comment: The validity of the calculated GFR AND GFRAA in patients over 70 years has not been determined. Clinical correlation is essential. LAB L501.1110 >60 mL/min Normal EST GFR 74 Result Comment: Non- GFR Calc LAB L501.1115 >60 mL/min Normal EST GFR - AA 90 Result Comment: GFR Calc LAB L501.1255 ml/min Normal Estimated CRCL 66.32 LAB L501.1300 10-20 RATIO Normal BUN/CRE 16.0 LAB L501.2200 8.5-10 mg/dL Normal .1 CA 9.9 LAB L501.5300 136-14 mmol/L Normal 5 NA 136 LAB L501.5600 3.5-5. mmol/L Normal 1 K 3.5 LAB L501.5900 98-107 mmol/L Normal CL 100 LAB L501.6100 21.0-3 mmol/L Normal 2.0 CO2 27.0 LAB L501.6200 5-15 Normal GAP 9 Performed By: #### L500.2500, L501.4010 #### [facility] [address] [place], [address] TROPONIN-I Collected: 04/11/2017 Status: F Source: [place] 1:42 PM [facility] REPOSITORY Order Comment: 'TROP' Serial specimen #1, #2, #3, or #4: 1 TYPE CODE TESTS RESULT OUT OF RANGE REFERENCE UNITS LAB L501.4010 <0.06 ng/mL Normal < 0.02 TROPONIN-I Result Comment: TROPONIN-I EXPECTED VALUES <0.05 NEGATIVE 0.06 - 0.59 AT RISK OF PR > OR = 0.60 SUGGEST PR Performed By: #### L500.2500, L501.4010 #### [facility] [address] [place], [address] CHEST PA AND LATERAL Observed: 04/11/2017 Status: F Source: [place] 1:40 PM [facility] REPOSITORY [facility] Imaging Services [address] [place] [address] Chest PA and Lateral MR#: [id number] Acct: [id number] Name: ALIN CLEMONS Rep #: [id number] : 1950 66 From: Naldo Enriquez MD PCP: Micah MAJOR,[employer] Status: PRE ER Study: Chest PA and Lateral Date of Exam: 04/11/17 Exam# [id number] Ordering Dr: Houston Caro MD STUDY: X-RAY CHEST REASON FOR EXAM: Male, 66 years old. Chest pain. TECHNIQUE: PA and lateral views of the chest. COMPARISON: None. FINDINGS: EKG electrodes are seen. The lungs are clear and expanded. There is no demonstrated pleural abnormality. Normal size heart. Normal mediastinum and nasir. Normal visualized pulmonary arteries. Normal visualized aortic arch and descending thoracic aorta. Normal visualized thoracic spine. Normal visualized ribs, clavicles, and shoulders. There is no demonstrated abnormality of the visualized soft tissue structures of the upper abdomen. RAD/Chest PA and Lateral IMPRESSION: Normal x-ray examination of the chest. Electronically Signed: Naldo Enriquez MD at 14:49 EST Tel [phone], Service support , CC: Houston Caro MD; Scott Obrien MD [employer] Cannoneer: Signed ALLERGIES ALLERGIES DATE TYPE / CODE NAME / CODE REACTION SEVERITY SOURCE 10/13/2017 Drug morphine/F00 Vomiting Unknown [facility] Allergy/4160 [id number]([place] [address](SNOMED RM) Repository CT) 10/13/2017 Drug codeine/F006 Vomiting Unknown [facility] Allergy/4160 879797([place] [address](SNOMED M) Repository CT) 10/13/2017 Drug carisoprodol Rash Unknown [facility] Allergy/4160 /[id number]( Hospital [facility](SNOMED RXNORM) Repository CT) 10/13/2017 Drug cephalexin/F Rash Unknown [facility] Allergy/4160 [id number](RX [place] [address](SNOMED NORM) Repository CT) 10/13/2017 Drug hydralazine/ HEADACHE SV [facility] Allergy/4160 [id number](R [facility](SNOMED XNORM) Repository CT) ENCOUNTERS ENCOUNTERS ADMIT/DISCHARGE ACCOUNT ADMITTING ENCOUNTER LOCATION SOURCE NUMBER CLASS 02/19/2018 [id number] Ambulatory BMSBuilding:B [place] 7 [facility] Repository 02/11/2018 [id number] Ambulatory [place] 1 [facility] ing:LAB.FUTUR Repository E 02/02/2018 [id number] Ambulatory [place] 9 [facility] ing:POLAB3 Repository 02/02/2018 [id number] Ambulatory [place] 2 [facility] ing:POLAB3 Repository 10/13/2017/ [id number] Ambulatory BMSBuilding:B [place] 8 1 [facility] Repository 09/25/2017 [id number] Ambulatory [place] 5 [facility] ing:PSN Repository 09/25/2017/ [id number] Ambulatory BMSBuilding:B [place] 8 2 [facility] Repository 09/25/2017 [id number] Ambulatory BMSBuilding:W [place] 1 [facility] Repository 09/23/2017 [id number] Ambulatory BMSBuilding:B [place] 3 [facility] Repository 08/13/2017 [id number] Ambulatory BMSBuilding:B [place] 0 [facility] Repository 08/04/2017 [id number] Ambulatory [place] Jam 9 [facility] ing:POLAB3 Repository 05/19/2017 [id number] Ambulatory [place] 1 [facility] ing:LAB.FUTUR Repository E 04/24/2017 [id number] Ambulatory [place] 0 [facility] ing:LAB Repository 04/11/2017/ [id number] Emergency [place] 8 5 [facility] ing:ED Repository PAYERS PAYERS ENCOUNTER GUARANTOR PAYER SUBSCRIBER SOURCE 02/19/2018 ALIN Primary ALIN Jam [id number] [place]IV[place] Insurance:MEDICARE SLONEDOB: [facility] PART A [facility] [id number] Number: Repository [id number]: [phone] [id number] [phone] () Date:2018-02-19 02/19/2018 Secondary ALIN [place] Insurance:[facility] SLONEDOB: [facility] CARE [id number] Hospital Number: Repository [id number] Date:9385-42-12FU [facility] [address]CFGEDTK, [place] [address]EE: 02/19/2018 Tertiary NOT GIVENUNK [place] Insurance:SELF PAY [facility] Number: Effective Repository Date:2018-02-19 02/11/2018 ALIN Primary ALIN [place] [id number] [place]IV[place] Insurance:MEDICARE SLONEDOB: [facility] PART A [facility] [id number] Number: Repository [id number]: 330 [id number] [phone] (HP) Date:2018-02-11 02/11/2018 Secondary ALIN [place] Insurance:UNITED TH SLONEDOB: Community CARE [address] [place] [address] [id number] Hospital Number: Repository [id number] Date:6040-91-46ZM [facility] [address]77[address]CVXBEJN, [place] [address]AT: 02/11/2018 Tertiary NOT GIVENUNK [place] Insurance:SELF PAY [facility] Number: Effective Repository Date:2018-02-11 02/02/2018 ALIN Primary ALIN Jam [id number] [place]IV[place] Insurance:MEDICARE SLONEDOB: [facility] CENTER PART A [facility] [id number] Number: Repository [id number]: 330 [id number] [phone] (HP) Date:2018-02-02 02/02/2018 Secondary ALIN [place] Insurance:UNITED [facility] SLONEDOB: [facility] CARE [id number] Hospital Number: Repository [id number] Date:6994-56-99EX [facility] [address]3847LHKACPB, [place] [address]YM: 02/02/2018 Tertiary NOT GIVENUNK [place] Insurance:SELF PAY [facility] Number: Effective Repository Date:2018-02-02 02/02/2018 ALIN Primary ALIN [place] [id number] LIV[place] Insurance:MEDICARE SLONEDOB: [facility] PART A [facility] [id number] Number: Repository [id number]: 330 [id number] [phone] (HP) Date:2018-02-02 02/02/2018 Secondary ALIN [place] Insurance:UNITED HLTH SLONEDOB: Community CARE [id number] Hospital Number: Repository [id number] Date:2230-48-54[address]DVPDOBC, [place] [address]LY: 02/02/2018 Tertiary NOT GIVENUNK [place] Insurance:SELF PAY [facility] Number: Effective Repository Date:2018-02-02 10/13/2017 ALIN Primary ALIN [place] [id number] [place] Insurance:MEDICARE SLONEDOB: [facility] PART A [facility] [id number] [place] Number: Repository [address]Fbi: 330 [id number] [phone] () Date:2017-09-29 10/13/2017 Secondary ALIN [place] Insurance:UNITED TH SLONEDOB: Community CARE [id number] Hospital Number: Repository [id number] Date:0892-78-39[address]UYKPBZ, [place] [address]OG: 10/13/2017 Tertiary NOT GIVENUNK [place] Insurance:SELF PAY [facility] Number: Effective Repository Date:2017-10-13 09/25/2017 ALIN Primary ALIN [place] [id number] [place] Insurance:MEDICARE SLONEDOB: [facility] PART A [facility] [id number] Number: Repository [id number]: 330 [id number] [phone] () Date:2017-09-25 09/25/2017 Secondary ALIN [place] Insurance:UNITED TH SLONEDOB: Community CARE [id number] Hospital Number: Repository [id number] Date:1671-11-50IN [address], [place] [address]CU: 09/25/2017 Tertiary NOT GIVENUNK [place] Insurance:SELF PAY [facility] Number: Effective Repository Date:2017-09-25 09/25/2017 ALIN Primary ALIN Jam [id number] [place] Insurance:MEDICARE SLONEDOB: Community [facility] PART A [facility] [id number] Number: Repository [id number]: 330 [id number] [phone] () Date:2017-08-18 09/25/2017 Secondary ALIN [place] Insurance:UNITED [place] SLONEDOB: Community CARE [id number] Hospital Number: Repository [id number] Date:[id number] [facility] [id number] [place] [address]JF: 09/25/2017 Tertiary NOT GIVENUNK Jam Insurance:SELF PAY [facility] Number: Effective Repository Date:2017-09-25 09/25/2017 ALIN Primary ALIN Jam [id number] [place] Insurance:MEDICARE SLONEDOB: Community [facility]ENTER PART A [facility] [id number] Number: Repository [id number]: 330 [id number] [phone] () Date:2017-08-18 09/25/2017 Secondary ALIN [place] Insurance:UNITED TH SLONEDOB: [facility] CARE [id number] Hospital Number: Repository [id number] Date:[id number], [place] [address]LH: 09/25/2017 Tertiary NOT GIVENUNK Jam Insurance:SELF PAY [facility] Number: Effective Repository Date:2017-09-25 09/23/2017 ALIN Primary ALIN [place] [id number] [place] Insurance:MEDICARE SLONEDOB: Community [facility] PART A [facility] [id number] Number: Repository [id number]: 330 [id number] [phone] () Date:2017-09-23 09/23/2017 Secondary ALIN [place] Insurance:UNITED TH SLONEDOB: Community CARE [id number] Hospital Number: Repository [id number] Date:0408-56-25GZ [facility] 110968HILUYMQ, [place] [address]FK: 09/23/2017 Tertiary NOT GIVENUNK Jam Insurance:SELF PAY [facility]: Effective Repository Date:2017-09-23 08/13/2017 ALIN Primary ALIN [place] [id number] [place] Insurance:MEDICARE SLONEDOB: Community [facility] PART A [facility] [id number] Number: Repository [id number]: 330 [id number] [phone] () Date:2017-08-13 08/13/2017 Secondary ALIN [place] Insurance:UNITED TH SLONEDOB: Community CARE [id number] Hospital Number: Repository [id number] Date:[id number] [facility] 215883HGMITFQ, [place] [address]RA: 08/13/2017 Tertiary NOT GIVENUNK [place] Insurance:SELF PAY [facility] Number: Effective Repository Date:2017-08-13 08/04/2017 ALIN Primary ALIN Jam [id number] [place] Insurance:MEDICARE SLONEDOB: [facility] PART A [facility] [id number] Number: Repository [id number]: 330 [id number] [phone] () Date:2017-08-04 08/04/2017 Secondary ALIN Jam Insurance:UNITED [place] SLON[place]OB: Community CARE [id number] Hospital Number: Repository [id number] Date:4665-61-16GC [facility] [id number], [place] [address]RE: 08/04/2017 Tertiary NOT GIVENUNK [place] Insurance:SELF PAY [facility] Number: Effective Repository Date:2017-08-04 05/19/2017 ALIN Primary ALIN [place] [id number] [place] Insurance:MEDICARE SLONEDOB: Community [facility] PART A [facility] [id number] Number: Repository [id number]: 330 [id number] [phone] (HP) Date:2017-05-19 05/19/2017 Secondary ALIN [place] Insurance:UNITED TH SLONEDOB: Community CARE [id number] Hospital Number: Repository [id number] Date:8255-16-41ZD [facility] 071602WGBMBTR, [place] [address]CU: 05/19/2017 Tertiary NOT GIVENUNK [place] Insurance:SELF PAY [facility] Number: Effective Repository Date:2017-05-19 04/24/2017 ALIN Primary ALIN [place] [id number] [place] Insurance:MEDICARE SLONEDOB: [facility] PART A [facility] [id number] [place] Number[place] Repository [id number]: 330 [id number] [phone] (HP) Date:2017-04-24 04/24/2017 Secondary ALIN Jam Insurance:UNITED TH SLONEDOB: Community CARE [id number] Hospital Number: Repository [id number] Date:[id number] [address]ZG: 04/24/2017 Tertiary NOT GIVENUNK [place] Insurance:SELF PAY [facility] Number: Effective Repository Date:2017-04-24 04/11/2017 ALIN Primary ALIN Jam [id number] [place] Insurance:MEDICARE SLONEDOB: Community [facility] PART A [facility] [id number] [place] Number: Repository [id number]: 330 [id number] [phone] (HP) Date:2017-04-11 04/11/2017 Secondary ALIN [place] Insurance:UNITED [facility] SLONEDOB: Community CARE [id number] Hospital Number: Repository [id number] Date:1825-82-48[address] [address]SZ: 04/11/2017 Tertiary NOT GIVENUNK Jam Insurance:SELF PAY [facility] Number: Effective Repository Date:2017-04-11
== END ==
PROVIDERS: Family Provider Family Medicine Geriatric Medicine; PCP Family Medicine Geriatric Medicine; Visit Provider Family Medicine Geriatric Medicine
DX: I12.9 Hypertensive chronic kidney disease with stage 1 through stage 4 chronic kidney disease, or unspecified chronic kidney disease (principal); N18.2 Chronic kidney disease, stage 2 (mild); R80.9 Proteinuria, unspecified; E23.6 Other disorders of pituitary gland; E55.9 Vitamin D deficiency, unspecified; F52.8 Other sexual dysfunction not due to a substance or known physiological condition
CPT/HCPCS: 36415; 80053; 82306; 82570; 84100; 84156; 84403; 84443; 85025

== ENCOUNTER → 2018-02-02 14:01 | Outpatient (CLI) | payer MEDICARE, OTHER, SELFPAY ==
[2017-09-25 10:37] VITALS: BMI 43.7
== END ==
PROVIDERS: Family Provider Family Medicine Geriatric Medicine; PCP Family Medicine Geriatric Medicine; Visit Provider Internal Medicine Nephrology
DX: R69 Illness, unspecified (principal)

== ENCOUNTER → 2018-08-06 | Outpatient (CLI) | payer MEDICARE, OTHER, SELFPAY ==
[2018-04-17 09:03] VITALS: BMI 44.6
[2018-08-06 12:17] LABS: Absolute Lymphocyte Count 3.07 X10^3/ul (0.83-4.51); Absolute Neutrophil Count 3.2 X10^3/uL (2.0-7.7); Basophil# 0.04 X10^3/uL; Basophil% 0.6 % (0-1); Eosinophil# 0.12 X10^3/uL; Eosinophils% 1.7 % (0-5); Hematocrit 47.3 % (40-54); Hemoglobin 15.5 g/dl (13.0-16.5); Lymphocyte # 3.07 X10^3/ul (4.0); Lymphocyte % 43.2 % (19-41); Mean Corp Hgb Conc 32.8 g/gl (32-36); Mean Corpuscular Hgb 27.7 pg (27.0-32.0); Mean Corpuscular Volume 84.6 fL (80-94); Mean Platelet Vol. 9.8 fl (6.2-12.0); Monocyte# 0.66 X10^3/uL; Monocyte% 9.3 % (0-10); Neutrophil # 3.21 X10^3/uL (2.7-7.7); Neutrophil % 45.1 % (47-70); Platelet Count 242 K/mm3 (150-450); RBC Distribution Width CV 13.6 % (11.6-14.6); RBC Distribution Width SD 42.5 fl (35.1-43.9); Red Blood Count 5.59 M/mm3 (4.6-6.2); White Blood Count 7.1 K/mm3 (4.4-11.0)
[2018-08-06 12:32] LABS: POSITIVE COUNT NO; POSITIVE DIFFERENTIAL NO; POSITIVE MORPHOLOGY NO
[2018-08-06 12:34] LABS: Vitamin D,25 Hydroxy 31.2 ng/mL (29.95-100.01)
[2018-08-06 12:45] LABS: ALB/GLOB Ratio 0.9 RATIO (0.9-2.4); AST(SGOT) 23 U/L (15-37); Alanine Aminotransfer ALT/SGPT 27 U/L (16-61); Albumin, Serum 3.5 g/dL (3.2-5.0); Alkaline Phosphatase 93 U/L (45-117); Anion Gap 7 (5-15); BUN 15 mg/dL (7-18); BUN/Creat Ratio 14.3 RATIO (10-20); Calcium,Total 9.2 mg/dL (8.5-10.1); Chloride 105 mmol/L (98-107); Creatinine, Serum 1.05 mg/dL (0.70-1.30); EST Glomerular Filtration Rate 75 mL/min (>60); Est Glom Filt Rate - Afr Amer 90 mL/min (>60); Glucose 100 mg/dL (74-106); PSA,Total - Annual Screen 4.25 ng/mL (0.00-4.00); Potassium 3.6 mmol/L (3.5-5.1); Protein, Total 7.5 g/dL (6.4-8.2); Sodium Level 142 mmol/L (136-145); Thyroid Stim Hormone (TSH) 2.27 uIU/mL (0.358-3.74)
== END | disposition home or self-care (01) ==
LOC: POLAB3 08:47
PROVIDERS: Family Provider Family Medicine Geriatric Medicine; PCP Family Medicine Geriatric Medicine; Visit Provider Family Medicine Geriatric Medicine
DX: E55.9 Vitamin D deficiency, unspecified (principal); F52.8 Other sexual dysfunction not due to a substance or known physiological condition; I10 Essential (primary) hypertension; Z12.5 Encounter for screening for malignant neoplasm of prostate
CPT/HCPCS: 36415; 80053; 82306; 84153; 84403; 84443; 85025; G0103

== ENCOUNTER → 2019-02-04 09:51 | Outpatient (CLI) | payer MEDICARE, OTHER, SELFPAY ==
[2018-11-12 10:13] VITALS: BMI 37.5
[2019-02-04 10:29] LABS: Absolute Lymphocyte Count 3.67 X10^3/uL (0.83-4.51); Absolute Neutrophil Count 2.8 X10^3/uL (2.0-7.7); Basophil# 0.05 X10^3/uL; Basophil% 0.7 % (0-1); Eosinophil# 0.12 X10^3/uL; Eosinophils% 1.6 % (0-5); Hematocrit 45.1 % (40-54); Hemoglobin 14.6 g/dL (13.0-16.5); Lymphocyte # 3.67 X10^3/ul (4.0); Lymphocyte % 49.2 % (19-41); Mean Corp Hgb Conc 32.4 g/dL (32-36); Mean Corpuscular Hgb 28.8 pg (27.0-32.0); Mean Platelet Vol. 10.2 fl (6.2-12.0); Monocyte# 0.78 X10^3/uL; Monocyte% 10.5 % (0-10); NRBC Flagged by Analyzer 0 % (0-5); Neutrophil # 2.82 X10^3/uL (2.7-7.7); Neutrophil % 37.7 % (47-70); Platelet Count 234 K/mm3 (150-450); RBC Distribution Width CV 13.7 % (11.6-14.6); RBC Distribution Width SD 44.3 fl (35.1-43.9); Red Blood Count 5.07 M/mm3 (4.6-6.2); White Blood Count 7.5 K/mm3 (4.4-11.0)
[2019-02-04 10:54] LABS: Vitamin D,25 Hydroxy 43.4 ng/mL (29.95-100.01)
[2019-02-04 11:14] LABS: ALB/GLOB Ratio 1.2 RATIO (0.9-2.4); AST(SGOT) 22 U/L (15-37); Alanine Aminotransfer ALT/SGPT 23 U/L (16-61); Albumin, Serum 3.9 g/dL (3.2-5.0); Alkaline Phosphatase 69 U/L (45-117); Anion Gap 5 (5-15); BUN 26 mg/dL (7-18); BUN/Creat Ratio 24.5 RATIO (10-20); Calcium,Total 9.7 mg/dL (8.5-10.1); Chloride 108 mmol/L (98-107); Creatinine, Serum 1.06 mg/dL (0.70-1.30); EST Glomerular Filtration Rate 74 mL/min (>60); Est Glom Filt Rate - Afr Amer 89 mL/min (>60); Globulin 3.3 g/dL (2.2-4.2); Glucose 96 mg/dL (74-106); Potassium 3.9 mmol/L (3.5-5.1); Protein, Total 7.2 g/dL (6.4-8.2); Sodium Level 142 mmol/L (136-145); Thyroid Stim Hormone (TSH) 1.57 uIU/mL (0.358-3.74)
== END ==
PROVIDERS: Internal Medicine Nephrology; Family Provider Family Medicine Geriatric Medicine; PCP Family Medicine Geriatric Medicine; Visit Provider Family Medicine Geriatric Medicine
DX: E23.6 Other disorders of pituitary gland (principal); E55.9 Vitamin D deficiency, unspecified; I10 Essential (primary) hypertension
CPT/HCPCS: 36415; 80053; 82306; 84403; 84443; 85025

== ENCOUNTER → 2019-08-12 09:40 | Outpatient (CLI) | payer MEDICARE, OTHER, SELFPAY ==
[2018-11-12 10:13] VITALS: BMI 37.5
[2019-08-12 12:26] LABS: Absolute Lymphocyte Count 4.05 X10^3/uL (0.83-4.51); Absolute Neutrophil Count 3.4 X10^3/uL (2.0-7.7); Basophil# 0.04 X10^3/uL; Basophil% 0.5 % (0-1); Eosinophil# 0.14 X10^3/uL; Eosinophils% 1.7 % (0-5); Hematocrit 47.7 % (40-54); Hemoglobin 15.5 g/dL (13.0-16.5); Lymphocyte # 4.05 X10^3/ul (4.0); Lymphocyte % 48.1 % (19-41); Mean Corp Hgb Conc 32.5 g/dL (32-36); Mean Corpuscular Hgb 29.1 pg (27.0-32.0); Mean Corpuscular Volume 89.5 fL (80-94); Mean Platelet Vol. 10.4 fl (6.2-12.0); Monocyte# 0.75 X10^3/uL; Monocyte% 8.9 % (0-10); NRBC Flagged by Analyzer 0 % (0-5); Neutrophil # 3.42 X10^3/uL (2.7-7.7); Neutrophil % 40.6 % (47-70); Platelet Count 244 K/mm3 (150-450); RBC Distribution Width CV 13.3 % (11.6-14.6); RBC Distribution Width SD 43.6 fl (35.1-43.9); Red Blood Count 5.33 M/mm3 (4.6-6.2); White Blood Count 8.4 K/mm3 (4.4-11.0)
[2019-08-12 12:43] LABS: Vitamin D,25 Hydroxy 45.3 ng/mL
[2019-08-12 13:01] LABS: AST(SGOT) 22 U/L (15-37); Alanine Aminotransfer ALT/SGPT 29 U/L (16-61); Albumin, Serum 3.7 g/dL (3.2-5.0); Alkaline Phosphatase 74 U/L (45-117); Anion Gap 5 (5-15); BUN 24 mg/dL (7-18); Calcium,Total 9.6 mg/dL (8.5-10.1); Chloride 105 mmol/L (98-107); EST Glomerular Filtration Rate 79 mL/min (>60); Est Glom Filt Rate - Afr Amer 96 mL/min (>60); Globulin 3.6 g/dL (2.2-4.2); Glucose 92 mg/dL (74-106); Potassium 3.9 mmol/L (3.5-5.1); Protein, Total 7.3 g/dL (6.4-8.2); Sodium Level 140 mmol/L (136-145); Thyroid Stim Hormone (TSH) 1.71 uIU/mL (0.358-3.74)
== END ==
PROVIDERS: PCP Family Medicine Geriatric Medicine; Visit Provider Family Medicine Geriatric Medicine
DX: E23.6 Other disorders of pituitary gland (principal); Z12.5 Encounter for screening for malignant neoplasm of prostate; E55.9 Vitamin D deficiency, unspecified; I10 Essential (primary) hypertension
CPT/HCPCS: 36415; 80053; 82306; 84153; 84403; 84443; 85025; G0103

== ENCOUNTER → 2020-02-09 09:32 | Outpatient (CLI) | payer MEDICARE, OTHER, SELFPAY ==
[2018-11-12 10:13] VITALS: BMI 37.5
[2020-02-09 12:49] LABS: Absolute Lymphocyte Count 4.76 X10^3/uL (0.83-4.51); Absolute Neutrophil Count 3.1 X10^3/uL (2.0-7.7); Basophil# 0.05 X10^3/uL; Basophil% 0.6 % (0-1); Eosinophil# 0.11 X10^3/uL; Eosinophils% 1.2 % (0-5); Hematocrit 48.2 % (40-54); Hemoglobin 15.9 g/dL (13.0-16.5); Lymphocyte # 4.76 X10^3/ul (4.0); Lymphocyte % 53.6 % (19-41); Mean Corpuscular Hgb 29.1 pg (27.0-32.0); Mean Corpuscular Volume 88.1 fL (80-94); Monocyte# 0.83 X10^3/uL; Monocyte% 9.3 % (0-10); NRBC Flagged by Analyzer 0 % (0-5); Neutrophil # 3.12 X10^3/uL (2.7-7.7); Neutrophil % 35.2 % (47-70); Platelet Count 261 K/mm3 (150-450); RBC Distribution Width CV 12.8 % (11.6-14.6); RBC Distribution Width SD 41.6 fl (35.1-43.9); Red Blood Count 5.47 M/mm3 (4.6-6.2); White Blood Count 8.9 K/mm3 (4.4-11.0)
[2020-02-09 12:57] LABS: Vitamin D,25 Hydroxy 26.3 ng/mL
[2020-02-09 13:07] LABS: AST(SGOT) 18 U/L (15-37); Alanine Aminotransfer ALT/SGPT 32 U/L (16-61); Albumin, Serum 3.8 g/dL (3.2-5.0); Alkaline Phosphatase 85 U/L (45-117); Anion Gap 6 (5-15); BUN 21 mg/dL (7-18); BUN/Creat Ratio 20.2 RATIO (10-20); Calcium,Total 9.3 mg/dL (8.5-10.1); Chloride 106 mmol/L (98-107); Creatinine, Serum 1.04 mg/dL (0.70-1.30); EST Glomerular Filtration Rate 75 mL/min (>60); Est Glom Filt Rate - Afr Amer 91 mL/min (>60); Globulin 3.7 g/dL (2.2-4.2); Glucose 89 mg/dL (74-106); Potassium 3.5 mmol/L (3.5-5.1); Protein, Total 7.5 g/dL (6.4-8.2); Sodium Level 141 mmol/L (136-145); Thyroid Stim Hormone (TSH) 1.89 uIU/mL (0.358-3.74)
== END ==
PROVIDERS: PCP Family Medicine Geriatric Medicine; Visit Provider Family Medicine Geriatric Medicine
DX: I10 Essential (primary) hypertension (principal); E55.9 Vitamin D deficiency, unspecified; F52.8 Other sexual dysfunction not due to a substance or known physiological condition
CPT/HCPCS: 36415; 80053; 82306; 84403; 84443; 85025

== ENCOUNTER → 2020-03-22 | Outpatient (CLI) | payer MEDICARE, OTHER, SELFPAY ==
[2018-11-12 10:13] VITALS: BMI 37.5
[2020-03-22 12:52] LABS: Protein, Urine (Random) 13.7 mg/dL (<11.9); Protein:Creat Ratio 238 mg/g CRE (0-200)
== END | disposition home or self-care (01) ==
PROVIDERS: PCP Family Medicine Geriatric Medicine; Visit Provider Internal Medicine Nephrology
DX: R80.9 Proteinuria, unspecified (principal)
CPT/HCPCS: 82570; 84156

== ENCOUNTER → 2020-08-18 08:54 | Outpatient (CLI) | payer MEDICARE, OTHER, SELFPAY ==
[2018-11-12 10:13] VITALS: BMI 37.5
[2020-08-18 12:55] LABS: Absolute Lymphocyte Count 3.51 X10^3/uL (0.83-4.51); Absolute Neutrophil Count 3.5 X10^3/uL (2.0-7.7); Basophil# 0.05 X10^3/uL; Basophil% 0.6 % (0-1); Eosinophil# 0.12 X10^3/uL; Eosinophils% 1.5 % (0-5); Hematocrit 47.6 % (40-54); Hemoglobin 15.4 g/dL (13.0-16.5); Lymphocyte # 3.51 X10^3/ul (0.83-4.51); Lymphocyte % 44.7 % (19-41); Mean Corp Hgb Conc 32.4 g/dL (32-36); Mean Corpuscular Hgb 28.3 pg (27.0-32.0); Mean Corpuscular Volume 87.5 fL (80-94); Mean Platelet Vol. 9.7 fl (6.2-12.0); Monocyte# 0.67 X10^3/uL; Monocyte% 8.5 % (0-10); NRBC Flagged by Analyzer 0 % (0-5); Neutrophil % 44.6 % (47-70); Platelet Count 244 K/mm3 (150-450); RBC Distribution Width CV 13.5 % (11.6-14.6); RBC Distribution Width SD 43.2 fl (35.1-43.9); Red Blood Count 5.44 M/mm3 (4.6-6.2); White Blood Count 7.9 K/mm3 (4.4-11.0)
[2020-08-18 13:11] LABS: Vitamin D,25 Hydroxy 45.3 ng/mL
[2020-08-18 13:16] LABS: AST(SGOT) 27 U/L (15-37); Alanine Aminotransfer ALT/SGPT 40 U/L (16-61); Albumin, Serum 3.6 g/dL (3.2-5.0); Alkaline Phosphatase 80 U/L (45-117); Anion Gap 7 (5-15); BUN 17 mg/dL (7-18); Chloride 107 mmol/L (98-107); Creatinine, Serum 1.13 mg/dL (0.70-1.30); EST Glomerular Filtration Rate 68 mL/min (>60); Est Glom Filt Rate - Afr Amer 83 mL/min (>60); Globulin 3.7 g/dL (2.2-4.2); Glucose 94 mg/dL (74-106); PSA,Total - Annual Screen 4.69 ng/mL (0.00-4.00); Potassium 3.5 mmol/L (3.5-5.1); Protein, Total 7.3 g/dL (6.4-8.2); Sodium Level 142 mmol/L (136-145); Thyroid Stim Hormone (TSH) 2.02 uIU/mL (0.358-3.74)
== END ==
PROVIDERS: PCP Family Medicine Geriatric Medicine; Referring Provider Family Medicine Geriatric Medicine; Visit Provider Family Medicine Geriatric Medicine
DX: I10 Essential (primary) hypertension (principal); E55.9 Vitamin D deficiency, unspecified; F52.8 Other sexual dysfunction not due to a substance or known physiological condition; Z12.5 Encounter for screening for malignant neoplasm of prostate
CPT/HCPCS: 36415; 80053; 82306; 84153; 84403; 84443; 85025; G0103

== ENCOUNTER → 2021-02-14 09:44 | Outpatient (CLI) | payer MEDICARE, OTHER, SELFPAY ==
[2021-02-14 12:32] LABS: Absolute Lymphocyte Count 4.39 X10^3/uL (0.83-4.51); Absolute Neutrophil Count 5.6 X10^3/uL (2.0-7.7); Basophil# 0.06 X10^3/uL; Basophil% 0.5 % (0-1); Eosinophil# 0.16 X10^3/uL; Eosinophils% 1.4 % (0-5); Hematocrit 45.9 % (40-54); Hemoglobin 15.2 g/dL (13.0-16.5); Lymphocyte # 4.39 X10^3/ul (0.83-4.51); Lymphocyte % 38.8 % (19-41); Mean Corp Hgb Conc 33.1 g/dL (32-36); Mean Corpuscular Hgb 28.9 pg (27.0-32.0); Mean Corpuscular Volume 87.3 fL (80-94); Mean Platelet Vol. 9.8 fl (6.2-12.0); Monocyte# 1.06 X10^3/uL; Monocyte% 9.4 % (0-10); NRBC Flagged by Analyzer 0 % (0-5); Neutrophil # 5.61 X10^3/uL (2.7-7.7); Neutrophil % 49.6 % (47-70); Platelet Count 227 K/mm3 (150-450); RBC Distribution Width CV 13.4 % (11.6-14.6); RBC Distribution Width SD 43.1 fl (35.1-43.9); Red Blood Count 5.26 M/mm3 (4.6-6.2); White Blood Count 11.3 K/mm3 (4.4-11.0)
[2021-02-14 12:47] LABS: Vitamin D,25 Hydroxy 60.5 ng/mL
[2021-02-14 12:50] LABS: ALB/GLOB Ratio 0.9 RATIO (0.9-2.4); AST(SGOT) 26 U/L (15-37); Alanine Aminotransfer ALT/SGPT 35 U/L (16-61); Albumin, Serum 3.4 g/dL (3.2-5.0); Alkaline Phosphatase 80 U/L (45-117); Anion Gap 6 (5-15); BUN 15 mg/dL (7-18); BUN/Creat Ratio 16.2 RATIO (10-20); Calcium,Total 9.4 mg/dL (8.5-10.1); Chloride 107 mmol/L (98-107); Creatinine, Serum 0.93 mg/dL (0.70-1.30); EST Glomerular Filtration Rate 86 mL/min (>60); Est Glom Filt Rate - Afr Amer 104 mL/min (>60); Globulin 3.8 g/dL (2.2-4.2); Glucose 81 mg/dL (74-106); Potassium 3.3 mmol/L (3.5-5.1); Protein, Total 7.2 g/dL (6.4-8.2); Sodium Level 143 mmol/L (136-145); Thyroid Stim Hormone (TSH) 1.35 uIU/mL (0.358-3.74)
== END ==
PROVIDERS: PCP Family Medicine Geriatric Medicine; Visit Provider Family Medicine Geriatric Medicine
DX: I10 Essential (primary) hypertension (principal); E23.6 Other disorders of pituitary gland; E55.9 Vitamin D deficiency, unspecified
CPT/HCPCS: 36415; 80053; 82306; 84403; 84443; 85025

== ENCOUNTER 2021-02-23 11:14 | Outpatient (CLI) | payer MEDICARE, OTHER, SELFPAY ==
[2021-02-23 13:26] LABS: Anion Gap 5 (5-15); BUN 20 mg/dL (7-18); Chloride 107 mmol/L (98-107); Creatinine, Serum 1.11 mg/dL (0.70-1.30); EST Glomerular Filtration Rate 70 mL/min (>60); Est Glom Filt Rate - Afr Amer 84 mL/min (>60); Glucose 103 mg/dL (74-106); Potassium 3.7 mmol/L (3.5-5.1); Sodium Level 141 mmol/L (136-145)
== END 2021-02-23 23:59 | disposition short-term general hospital (02) ==
LOC: POLAB3 11:15
PROVIDERS: PCP Family Medicine Geriatric Medicine; Visit Provider Family Medicine Geriatric Medicine
DX: E87.6 Hypokalemia (principal)
CPT/HCPCS: 36415; 80048

== ENCOUNTER → 2021-09-14 | Outpatient (CLI) | payer MEDICARE, OTHER, SELFPAY ==
[2021-09-14 11:20] LABS: Absolute Lymphocyte Count 3.36 X10^3/uL (0.83-4.51); Absolute Neutrophil Count 3.4 X10^3/uL (2.0-7.7); Basophil# 0.05 X10^3/uL; Basophil% 0.7 % (0-1); Eosinophil# 0.12 X10^3/uL; Eosinophils% 1.6 % (0-5); Hematocrit 46.4 % (40-54); Hemoglobin 14.8 g/dL (13.0-16.5); Lymphocyte # 3.36 X10^3/ul (0.83-4.51); Lymphocyte % 43.8 % (19-41); Mean Corp Hgb Conc 31.9 g/dL (32-36); Mean Corpuscular Hgb 27.5 pg (27.0-32.0); Mean Corpuscular Volume 86.2 fL (80-94); Monocyte# 0.72 X10^3/uL; Monocyte% 9.4 % (0-10); NRBC Flagged by Analyzer 0 % (0-5); Neutrophil # 3.41 X10^3/uL (2.7-7.7); Neutrophil % 44.4 % (47-70); Platelet Count 250 K/mm3 (150-450); RBC Distribution Width CV 14.3 % (11.6-14.6); RBC Distribution Width SD 45.1 fl (35.1-43.9); Red Blood Count 5.38 M/mm3 (4.6-6.2); White Blood Count 7.7 K/mm3 (4.4-11.0)
[2021-09-14 11:39] LABS: Vitamin D,25 Hydroxy 77.2 ng/mL
[2021-09-14 11:40] LABS: AST(SGOT) 26 U/L (15-37); Alanine Aminotransfer ALT/SGPT 31 U/L (16-61); Albumin, Serum 3.8 g/dL (3.2-5.0); Alkaline Phosphatase 71 U/L (45-117); Anion Gap 3 (5-15); BUN 17 mg/dL (7-18); BUN/Creat Ratio 16.7 RATIO (10-20); Calcium,Total 9.9 mg/dL (8.5-10.1); Chloride 106 mmol/L (98-107); Creatinine, Serum 1.02 mg/dL (0.70-1.30); EST Glomerular Filtration Rate 77 mL/min (>60); Est Glom Filt Rate - Afr Amer 93 mL/min (>60); Globulin 3.7 g/dL (2.2-4.2); Glucose 103 mg/dL (74-106); PSA,Total - Annual Screen 8.76 ng/mL (0.00-4.00); Potassium 3.8 mmol/L (3.5-5.1); Protein, Total 7.5 g/dL (6.4-8.2); Sodium Level 138 mmol/L (136-145)
== END | disposition home or self-care (01) ==
LOC: LAB 11:05
PROVIDERS: PCP Family Medicine Geriatric Medicine; Referring Provider Family Medicine Geriatric Medicine; Visit Provider Family Medicine Geriatric Medicine
DX: I10 Essential (primary) hypertension (principal); E55.9 Vitamin D deficiency, unspecified; F52.8 Other sexual dysfunction not due to a substance or known physiological condition; Z12.5 Encounter for screening for malignant neoplasm of prostate
CPT/HCPCS: 36415; 80053; 82306; 84153; 84403; 84443; 85025; G0103

== ENCOUNTER → 2021-09-27 | Outpatient (CLI) | payer MEDICARE, OTHER, SELFPAY | END | disposition home or self-care (01) | PROVIDERS: PCP Family Medicine Geriatric Medicine; Referring Provider Family Medicine Geriatric Medicine; Visit Provider Family Medicine Geriatric Medicine | DX: U07.1 COVID-19 (principal); R68.83 Chills (without fever) | CPT/HCPCS: 87086; 87635; C9803; U0003; U0005 ==

== ENCOUNTER → 2021-10-10 | Outpatient (CLI) | payer MEDICARE, OTHER, SELFPAY ==
--- NOTE | 2021-10-10 14:25 | CT_ITS ---
STUDY: CT ABDOMEN AND PELVIS WITHOUT CONTRAST REASON FOR EXAM: Male, 70 years old. GROSS HEMATURIA. History of kidney stones. RADIATION DOSAGE (If Supplied By Facility): CTDIvol = ( 22.01 ) mGy, DLP = ( 1177.99 ) mGycm TECHNIQUE: Transaxial images were obtained from the dome of the diaphragm to the symphysis pubis without oral contrast, and without intravenous contrast. Sagittal and coronal images were reconstructed. Individualized dose optimization techniques were used for this CT. COMPARISON: Comparison is made with prior study of 06/24/2015. FINDINGS: Stable 1.5 mm noncalcified nodule in the peripheral lateral aspect of the right lower lobe as seen on axial image #71. Coronary artery calcification. Normal liver. The patient is status post cholecystectomy. Normal spleen. Normal pancreas. Normal bilateral adrenal glands. Punctate calcification in the posterior upper pole calyx of the right kidney. Normal left kidney. Normal visualized stomach. Normal small intestine. There are scattered colonic diverticula consistent with diverticulosis. The appendix is visualized and appears normal. There is scattered atherosclerotic calcification of the abdominal aorta, without a demonstrated aneurysm. Normal inferior vena cava. Normal retroperitoneum. Normal urinary bladder. There is enlargement of the prostate gland. The prostate measures 5.4 cm by 5.5 cm. The prostate causes indentation at the bladder base Central calcifications are seen. There is a small umbilical hernia containing fat. There are diffuse degenerative changes of the visualized lumbar spine. CT/Abdomen/Pelvis without Cont IMPRESSION: The patient is status post cholecystectomy. Prostatic enlargement with indentation at the bladder base. Prostatic calcifications. Electronically Signed: Naldo Enriquez MD at 15:19 EDT ,
== END | disposition home or self-care (01) ==
LOC: CT 14:24
PROVIDERS: PCP Family Medicine Geriatric Medicine; Referring Provider Urology; Visit Provider Urology
DX: R31.0 Gross hematuria (principal); Z90.49 Acquired absence of other specified parts of digestive tract
CPT/HCPCS: 74176

== ENCOUNTER → 2022-03-15 | Outpatient (CLI) | payer MEDICARE, OTHER, SELFPAY ==
[2022-03-15 13:30] LABS: Absolute Lymphocyte Count 4.05 X10^3/uL (0.83-4.51); Absolute Neutrophil Count 2.7 X10^3/uL (2.0-7.7); Basophil# 0.04 X10^3/uL; Basophil% 0.5 % (0-1); Eosinophil# 0.12 X10^3/uL; Eosinophils% 1.6 % (0-5); Hematocrit 46.4 % (40-54); Hemoglobin 15.5 g/dL (13.0-16.5); Lymphocyte # 4.05 X10^3/ul (0.83-4.51); Lymphocyte % 52.3 % (19-41); Mean Corp Hgb Conc 33.4 g/dL (32-36); Mean Corpuscular Hgb 27.9 pg (27.0-32.0); Mean Corpuscular Volume 83.5 fL (80-94); Mean Platelet Vol. 9.7 fl (6.2-12.0); Monocyte# 0.79 X10^3/uL; Monocyte% 10.2 % (0-10); NRBC Flagged by Analyzer 0 % (0-5); Neutrophil # 2.73 X10^3/uL (2.7-7.7); Neutrophil % 35.3 % (47-70); Platelet Count 259 K/mm3 (150-450); RBC Distribution Width CV 13.7 % (11.6-14.6); RBC Distribution Width SD 41.7 fl (35.1-43.9); Red Blood Count 5.56 M/mm3 (4.6-6.2); White Blood Count 7.7 K/mm3 (4.4-11.0)
[2022-03-15 13:44] LABS: Vitamin D,25 Hydroxy 74.6 ng/mL
[2022-03-15 13:58] LABS: AST(SGOT) 38 U/L (15-37); Alanine Aminotransfer ALT/SGPT 37 U/L (16-61); Albumin, Serum 3.8 g/dL (3.2-5.0); Alkaline Phosphatase 70 U/L (45-117); Anion Gap 8 (5-15); BUN 18 mg/dL (7-18); BUN/Creat Ratio 15.5 RATIO (10-20); Calcium,Total 9.8 mg/dL (8.5-10.1); Chloride 106 mmol/L (98-107); Creatinine, Serum 1.16 mg/dL (0.70-1.30); EST Glomerular Filtration Rate 66 mL/min (>60); Est Glom Filt Rate - Afr Amer 80 mL/min (>60); Globulin 3.9 g/dL (2.2-4.2); Glucose 97 mg/dL (74-106); Potassium 3.8 mmol/L (3.5-5.1); Protein, Total 7.7 g/dL (6.4-8.2); Sodium Level 141 mmol/L (136-145); Thyroid Stim Hormone (TSH) 1.95 uIU/mL (0.358-3.74)
== END | disposition home or self-care (01) ==
LOC: POLAB3 10:28
PROVIDERS: PCP Family Medicine Geriatric Medicine; Visit Provider Family Medicine Geriatric Medicine
DX: I10 Essential (primary) hypertension (principal); F52.8 Other sexual dysfunction not due to a substance or known physiological condition; E55.9 Vitamin D deficiency, unspecified
CPT/HCPCS: 36415; 80053; 82306; 84403; 84443; 85025

== ENCOUNTER → 2022-04-23 | Outpatient (CLI) | payer MEDICARE, OTHER, SELFPAY ==
[2022-04-23 07:36] LABS: PSA,Total- Diagnostic 7.29 ng/mL (0.0-4.0)
== END | disposition home or self-care (01) ==
LOC: LAB 06:46
PROVIDERS: PCP Family Medicine Geriatric Medicine; Referring Provider Registered Nurse; Visit Provider Registered Nurse
DX: R97.20 Elevated prostate specific antigen [PSA] (principal)
CPT/HCPCS: 36415; 84153

== ENCOUNTER → 2022-09-16 | Outpatient (CLI) | payer MEDICARE, OTHER, SELFPAY ==
[2022-09-16 12:35] LABS: Absolute Neutrophil Count 3.2 X10^3/uL (2.0-7.7); Basophil# 0.05 X10^3/uL; Basophil% 0.7 % (0-1); Eosinophil# 0.12 X10^3/uL; Eosinophils% 1.6 % (0-5); Hematocrit 47.3 % (40-54); Hemoglobin 15.3 g/dL (13.0-16.5); Lymphocyte % 43.9 % (19-41); Mean Corp Hgb Conc 32.3 g/dL (32-36); Mean Corpuscular Hgb 28.6 pg (27.0-32.0); Mean Corpuscular Volume 88.4 fL (80-94); Mean Platelet Vol. 9.5 fl (6.2-12.0); Monocyte# 0.81 X10^3/uL; Monocyte% 10.8 % (0-10); NRBC Flagged by Analyzer 0 % (0-5); Neutrophil # 3.21 X10^3/uL (2.7-7.7); Neutrophil % 42.7 % (47-70); Platelet Count 220 K/mm3 (150-450); RBC Distribution Width CV 13.4 % (11.6-14.6); Red Blood Count 5.35 M/mm3 (4.6-6.2); White Blood Count 7.5 K/mm3 (4.4-11.0)
[2022-09-16 13:00] LABS: Vitamin D,25 Hydroxy 68.1 ng/mL
[2022-09-16 14:38] LABS: AST(SGOT) 31 U/L (15-37); Alanine Aminotransfer ALT/SGPT 38 U/L (16-61); Albumin, Serum 3.6 g/dL (3.2-5.0); Alkaline Phosphatase 68 U/L (45-117); Anion Gap 6 (5-15); BUN 18 mg/dL (7-18); BUN/Creat Ratio 17.5 RATIO (10-20); Calcium,Total 9.7 mg/dL (8.5-10.1); Chloride 108 mmol/L (98-107); Creatinine, Serum 1.03 mg/dL (0.70-1.30); EST Glomerular Filtration Rate 76 mL/min (>60); Est Glom Filt Rate - Afr Amer 91 mL/min (>60); Globulin 3.6 g/dL (2.2-4.2); Glucose 119 mg/dL (74-106); Potassium 3.6 mmol/L (3.5-5.1); Protein, Total 7.2 g/dL (6.4-8.2); Sodium Level 141 mmol/L (136-145); Thyroid Stim Hormone (TSH) 2.04 uIU/mL (0.358-3.74)
== END | disposition home or self-care (01) ==
PROVIDERS: PCP Family Medicine Geriatric Medicine; Visit Provider Family Medicine Geriatric Medicine
DX: I10 Essential (primary) hypertension (principal); E55.9 Vitamin D deficiency, unspecified
CPT/HCPCS: 36415; 80053; 82306; 84443; 85025

== ENCOUNTER → 2022-11-11 | Outpatient (CLI) | payer MEDICARE, OTHER, SELFPAY ==
[2022-11-12 13:08] LABS: PSA, Free 0.96 ng/mL; PSA, Free % 24.8 % (.)
== END | disposition home or self-care (01) ==
LOC: LAB 09:34
PROVIDERS: PCP Family Medicine Geriatric Medicine; Referring Provider Urology; Visit Provider Urology
DX: R97.20 Elevated prostate specific antigen [PSA] (principal)
CPT/HCPCS: 36415; 84153; 84154

== ENCOUNTER → 2023-02-19 | Outpatient (CLI) | payer MEDICARE, OTHER, SELFPAY ==
[2023-02-19 17:37] LABS: Absolute Lymphocyte Count 2.67 X10^3/uL (0.83-4.51); Absolute Neutrophil Count 3.4 X10^3/uL (2.0-7.7); Basophil# 0.04 X10^3/uL; Basophil% 0.5 % (0-1); Eosinophil# 0.02 X10^3/uL; Eosinophils% 0.3 % (0-5); Hemoglobin 15.6 g/dL (13.0-16.5); Lymphocyte # 2.67 X10^3/ul (0.83-4.51); Lymphocyte % 35.4 % (19-41); Mean Corp Hgb Conc 32.5 g/dL (32-36); Mean Corpuscular Hgb 28.6 pg (27.0-32.0); Mean Corpuscular Volume 87.9 fL (80-94); Mean Platelet Vol. 9.2 fl (6.2-12.0); Monocyte# 1.39 X10^3/uL; Monocyte% 18.4 % (0-10); NRBC Flagged by Analyzer 0 % (0-5); Neutrophil # 3.41 X10^3/uL (2.7-7.7); Neutrophil % 45.3 % (47-70); Platelet Count 166 K/mm3 (150-450); RBC Distribution Width CV 13.5 % (11.6-14.6); RBC Distribution Width SD 43.2 fl (35.1-43.9); Red Blood Count 5.46 M/mm3 (4.6-6.2); White Blood Count 7.5 K/mm3 (4.4-11.0)
[2023-02-19 18:17] LABS: Anion Gap 4 (5-15); BUN 16 mg/dL (7-18); BUN/Creat Ratio 13.6 RATIO (10-20); Calcium,Total 10.1 mg/dL (8.5-10.1); Chloride 105 mmol/L (98-107); Creatinine, Serum 1.18 mg/dL (0.70-1.30); EST Glomerular Filtration Rate 65 mL/min (>60); Est Glom Filt Rate - Afr Amer 78 mL/min (>60); Glucose 104 mg/dL (74-106); Potassium 3.5 mmol/L (3.5-5.1); Sodium Level 138 mmol/L (136-145)
== END | disposition home or self-care (01) ==
LOC: POLAB3 17:10
PROVIDERS: PCP Family Medicine Geriatric Medicine; Visit Provider Family Medicine Geriatric Medicine
DX: I10 Essential (primary) hypertension (principal)
CPT/HCPCS: 36415; 80048; 85025

== ENCOUNTER → 2023-02-19 | Outpatient (CLI) | payer MEDICARE, OTHER, SELFPAY ==
--- NOTE | 2023-02-19 17:30 | RAD_ITS ---
STUDY: X-RAY CHEST REASON FOR EXAM: Male, 72 years old. CONGESTIONS OF RESPIRATORY TRACT TECHNIQUE: PA and lateral views of the chest. COMPARISON: 04/11/2017 FINDINGS: The lungs are clear and expanded. There is no demonstrated pleural abnormality. Normal size heart. Normal mediastinum and nasir. Normal visualized pulmonary arteries. Normal visualized aortic arch and descending thoracic aorta. Normal visualized thoracic spine. Normal visualized ribs, clavicles, and shoulders. There is no demonstrated abnormality of the visualized soft tissue structures of the upper abdomen. RAD/Chest PA and Lateral IMPRESSION: Normal x-ray examination of the chest. Electronically Signed: Jeff Cade MD at 20:49 EST ,
== END | disposition home or self-care (01) ==
LOC: RAD 17:25
PROVIDERS: PCP Family Medicine Geriatric Medicine; Referring Provider Family Medicine Geriatric Medicine; Visit Provider Family Medicine Geriatric Medicine
DX: J98.8 Other specified respiratory disorders (principal)
CPT/HCPCS: 71046

== ENCOUNTER → 2023-03-17 | Outpatient (CLI) | payer MEDICARE, OTHER, SELFPAY ==
[2023-03-17 10:34] LABS: Absolute Lymphocyte Count 2.71 X10^3/uL (0.83-4.51); Absolute Neutrophil Count 2.8 X10^3/uL (2.0-7.7); Basophil# 0.05 X10^3/uL; Basophil% 0.8 % (0-1); Eosinophil# 0.11 X10^3/uL; Eosinophils% 1.7 % (0-5); Hematocrit 47.7 % (40-54); Hemoglobin 15.6 g/dL (13.0-16.5); Lymphocyte # 2.71 X10^3/ul (0.83-4.51); Mean Corp Hgb Conc 32.7 g/dL (32-36); Mean Corpuscular Hgb 28.7 pg (27.0-32.0); Mean Corpuscular Volume 87.7 fL (80-94); Mean Platelet Vol. 9.5 fl (6.2-12.0); Monocyte# 0.82 X10^3/uL; Monocyte% 12.7 % (0-10); NRBC Flagged by Analyzer 0 % (0-5); Neutrophil # 2.77 X10^3/uL (2.7-7.7); Neutrophil % 42.8 % (47-70); Platelet Count 211 K/mm3 (150-450); RBC Distribution Width CV 13.7 % (11.6-14.6); RBC Distribution Width SD 43.5 fl (35.1-43.9); Red Blood Count 5.44 M/mm3 (4.6-6.2); White Blood Count 6.5 K/mm3 (4.4-11.0)
[2023-03-17 10:46] LABS: Vitamin D,25 Hydroxy 82.5 ng/mL
[2023-03-17 11:00] LABS: AST(SGOT) 24 U/L (15-37); Alanine Aminotransfer ALT/SGPT 34 U/L (16-61); Albumin, Serum 3.8 g/dL (3.2-5.0); Alkaline Phosphatase 61 U/L (45-117); Anion Gap 4 (5-15); BUN 19 mg/dL (7-18); BUN/Creat Ratio 16.7 RATIO (10-20); Calcium,Total 10.3 mg/dL (8.5-10.1); Chloride 109 mmol/L (98-107); Creatinine, Serum 1.14 mg/dL (0.70-1.30); EST Glomerular Filtration Rate 67 mL/min (>60); Est Glom Filt Rate - Afr Amer 81 mL/min (>60); Glucose 103 mg/dL (74-106); Potassium 3.7 mmol/L (3.5-5.1); Protein, Total 7.8 g/dL (6.4-8.2); Sodium Level 142 mmol/L (136-145); Thyroid Stim Hormone (TSH) 1.66 uIU/mL (0.358-3.74)
== END | disposition home or self-care (01) ==
LOC: POLAB3 09:22
PROVIDERS: PCP Family Medicine Geriatric Medicine; Visit Provider Family Medicine Geriatric Medicine
DX: I10 Essential (primary) hypertension (principal); E55.9 Vitamin D deficiency, unspecified
CPT/HCPCS: 36415; 80053; 82306; 84443; 85025

== ENCOUNTER → 2023-10-01 | Outpatient (CLI) | payer MEDICARE, OTHER, SELFPAY ==
[2023-10-01 10:35] LABS: Absolute Lymphocyte Count 2.86 X10^3/uL (0.83-4.51); Absolute Neutrophil Count 2.6 X10^3/uL (2.0-7.7); Basophil# 0.05 X10^3/uL; Basophil% 0.8 % (0-1); Eosinophil# 0.12 X10^3/uL; Eosinophils% 1.9 % (0-5); Hematocrit 44.3 % (40-54); Hemoglobin 14.3 g/dL (13.0-16.5); Lymphocyte # 2.86 X10^3/ul (0.83-4.51); Lymphocyte % 44.5 % (19-41); Mean Corp Hgb Conc 32.3 g/dL (32-36); Mean Corpuscular Hgb 28.3 pg (27.0-32.0); Mean Corpuscular Volume 87.5 fL (80-94); Mean Platelet Vol. 9.1 fl (6.2-12.0); Monocyte# 0.76 X10^3/uL; Monocyte% 11.8 % (0-10); NRBC Flagged by Analyzer 0 % (0-5); Neutrophil # 2.63 X10^3/uL (2.7-7.7); Neutrophil % 40.8 % (47-70); Platelet Count 207 K/mm3 (150-450); RBC Distribution Width CV 13.5 % (11.6-14.6); RBC Distribution Width SD 43.1 fl (35.1-43.9); Red Blood Count 5.06 M/mm3 (4.6-6.2); White Blood Count 6.4 K/mm3 (4.4-11.0)
[2023-10-01 10:55] LABS: Vitamin D,25 Hydroxy 78.7 ng/mL
[2023-10-01 11:07] LABS: AST(SGOT) 32 U/L (15-37); Alanine Aminotransfer ALT/SGPT 29 U/L (16-61); Albumin, Serum 3.6 g/dL (3.2-5.0); Alkaline Phosphatase 61 U/L (45-117); Anion Gap 4 (5-15); BUN 22 mg/dL (7-18); Calcium,Total 9.9 mg/dL (8.5-10.1); Chloride 105 mmol/L (98-107); EST Glomerular Filtration Rate 78 mL/min (>60); Est Glom Filt Rate - Afr Amer 94 mL/min (>60); Globulin 3.7 g/dL (2.2-4.2); Glucose 109 mg/dL (74-106); Potassium 3.6 mmol/L (3.5-5.1); Protein, Total 7.3 g/dL (6.4-8.2); Sodium Level 141 mmol/L (136-145)
== END | disposition home or self-care (01) ==
LOC: POLAB3 10:02
PROVIDERS: PCP Family Medicine Geriatric Medicine; Visit Provider Family Medicine Geriatric Medicine
DX: E55.9 Vitamin D deficiency, unspecified (principal); I10 Essential (primary) hypertension
CPT/HCPCS: 36415; 80053; 82306; 84443; 85025

== ENCOUNTER → 2023-10-03 | Outpatient (CLI) | payer MEDICARE, OTHER, SELFPAY ==
--- NOTE | 2023-10-03 07:23 | US_ITS ---
STUDY: ABDOMINAL ULTRASOUND - RIGHT UPPER QUADRANT REASON FOR VISIT: Male, 72 years old abnormal labs TECHNIQUE: Ultrasound evaluation of the right upper quadrant was performed with real-time and static andre-scale imaging. TECHNICAL QUALITY: Adequate. COMPARISON: None. FINDINGS: Liver: The liver measures 15.6 cm. There is a heterogeneous echogenicity of the liver. The bile ducts are within normal limits. There is hepatic color flow. The direction of portal flow is hepatopetal. There is no demonstrated mass lesion. Gallbladder: The patient is status post cholecystectomy. Common Bile Duct (C.B.D.): The common bile duct measures 3.7 mm. Pancreas: Normal size of the head, body and tail of the pancreas. There is normal echogenicity of the pancreas. There is no demonstrated pancreatic mass or cyst. Right Kidney: Normal size of the right kidney. The right kidney measures 13.1 cm x 5.5 cm x 5.7 cm. Normal renal cortex. The right cortex measures 1.9 cm. There is no demonstrated renal mass or cyst. There is mild hydronephrosis of the right kidney. US/Abdomen Limited IMPRESSION: Mild degree of right hydronephrosis. Heterogeneous echotexture of the liver. Electronically Signed: Naldo Enriquez MD at 15:52 EDT ,
== END | disposition home or self-care (01) ==
LOC: US 07:22
PROVIDERS: PCP Family Medicine Geriatric Medicine; Referring Provider Family Medicine Geriatric Medicine; Visit Provider Family Medicine Geriatric Medicine
DX: R17 Unspecified jaundice (principal)
CPT/HCPCS: 76705

== ENCOUNTER → 2023-10-10 | Outpatient (CLI) | payer MEDICARE, OTHER, SELFPAY ==
--- NOTE | 2023-10-10 11:00 | CT_ITS ---
STUDY: CT ABDOMEN AND PELVIS WITH CONTRAST REASON FOR EXAM: Male, 72 years old. HYDRONEPHROSIS RIGHT RADIATION DOSAGE (If Supplied By Facility): CTDIvol = ( 33.81 ) mGy, DLP = ( 1342.16 ) mGycm TECHNIQUE: Transaxial images were obtained from the dome of the diaphragm to the symphysis pubis without oral contrast. IV 100mL Isovue-300 was administered. Sagittal and coronal images were reconstructed. Individualized dose optimization techniques were used for this CT. COMPARISON: Comparison is made with prior study dated October 10, 2001. FINDINGS: The visualized lung bases are unremarkable. Coronary artery calcification. There is decreased attenuation of the liver consistent with steatosis. The patient is status post cholecystectomy. Normal spleen. Normal pancreas. Normal bilateral adrenal glands. Normal right kidney. Normal left kidney. No evidence of hydronephrosis. Normal visualized stomach. Normal small intestine. There are scattered colonic diverticula consistent with diverticulosis. The appendix is visualized and appears normal. There is scattered atherosclerotic calcification of the abdominal aorta, without a demonstrated aneurysm. Normal inferior vena cava. Normal retroperitoneum. Normal urinary bladder. Prostatic enlargement. The prostate measures 4.3 cm x 4.9 cm. This causes indentation at the bladder base. Normal abdominal wall. There are degenerative changes of the visualized lumbar spine. CT/Abdomen/Pelvis WITH Contrast IMPRESSION: No evidence of hydronephrosis. Prostatic enlargement with indentation at the bladder base. Electronically Signed: Naldo Enriquez MD at 11:54 EDT ,
== END | disposition home or self-care (01) ==
LOC: CT 11:00
PROVIDERS: PCP Family Medicine Geriatric Medicine; Referring Provider Family Medicine Geriatric Medicine; Visit Provider Family Medicine Geriatric Medicine
DX: N13.30 Unspecified hydronephrosis (principal)
CPT/HCPCS: 74177

== ENCOUNTER → 2023-11-17 | Outpatient (CLI) | payer MEDICARE, OTHER, SELFPAY ==
[2023-11-17 10:59] LABS: PSA,Total- Diagnostic 1.46 ng/mL (0.0-4.0)
== END | disposition home or self-care (01) ==
PROVIDERS: PCP Family Medicine Geriatric Medicine; Referring Provider Urology; Visit Provider Urology
DX: N40.1 Benign prostatic hyperplasia with lower urinary tract symptoms (principal)
CPT/HCPCS: 36415; 84153

== ENCOUNTER → 2024-01-01 | Outpatient (CLI) | payer MEDICARE, OTHER, SELFPAY ==
--- NOTE | 2024-01-01 08:15 | EKG12_ITS ---
Test Reason : PREOP Blood Pressure : */* mmHG Vent. Rate : 54 BPM Atrial Rate : 54 BPM P-R Int : 138 ms QRS Dur : 144 ms QT Int : 470 ms P-R-T Axes : 23 -17 20 degrees QTcB Int : 445 ms Sinus bradycardia Right bundle branch block Cannot rule out Inferior infarct , age undetermined Abnormal ECG Confirmed by ROGER MAJOR, AGUSTINA ([id number]), editorial specialist FLORENCIO HALL ([id number]) on 01/01/2024 1:51:44 P M Referred By: Maury Vivas Confirmed By: AGUSTINA DURAN MD
--- NOTE | 2024-01-01 08:15 | CT_ITS ---
CT RIGHT LOWER EXTREMITY WITH 3-D IMAGING CLINICAL INDICATION: Unilateral primary osteoarthritis, right knee.[facility] protocol. TECHNIQUE: Axial CT images of the RIGHT lower extremity was performed without IV contrast material. Coronal and sagittal reformats were provided. The protocol utilizes one or more of the following dose reduction techniques: automated exposure control, adjustment of mA and/or kV according to patient size,and/or use of iterative reconstruction technique. RADIATION DOSAGE (If Supplied By Facility): CTDIvol = ( 18.76 ) mGy, DLP = ( 1383.59 ) mGycm COMPARISON: No relevant prior comparison study available FINDINGS: Bones: Imaging of the right hip joint was obtained. There is evidence of a degenerative changes of the right sacroiliac joint. The hip joint is unremarkable. Imaging of the right knee joint was obtained. There is a marked degree of joint space narrowing involving the medial compartment of knee joint with degenerative spur formation along the distal femoral medial condyle and medial tibial plateau. Small subchondral cysts are seen. Moderate degree of joint space narrowing and degenerative spur formation of the patellofemoral joint. No significant joint effusion is seen. Imaging of the ankle joint was obtained. No abnormality is seen. Soft Tissues: The deep soft tissue structures are unremarkable. The superficial soft tissues are unremarkable without evidence of edema, hematoma, or foreign body. CT/Extremity Lower without Contra IMPRESSION: Marked degree of osteoarthritis involving the medial compartment of knee joint as well as moderate degree of osteoarthritis involving the patellofemoral joint. Electronically Signed: Naldo Enriquez MD at 8:07 EST ,
[2024-01-01 08:59] LABS: Absolute Lymphocyte Count 2.36 X10^3/uL (0.83-4.51); Absolute Neutrophil Count 2.8 X10^3/uL (2.0-7.7); Basophil# 0.06 X10^3/uL; Eosinophil# 0.09 X10^3/uL; Eosinophils% 1.5 % (0-5); Hematocrit 46.2 % (40-54); Hemoglobin 14.7 g/dL (13.0-16.5); Lymphocyte # 2.36 X10^3/ul (0.83-4.51); Lymphocyte % 39.2 % (19-41); Mean Corp Hgb Conc 31.8 g/dL (32-36); Mean Corpuscular Hgb 27.6 pg (27.0-32.0); Mean Corpuscular Volume 86.8 fL (80-94); Mean Platelet Vol. 8.9 fl (6.2-12.0); Monocyte# 0.66 X10^3/uL; NRBC Flagged by Analyzer 0 % (0-5); Neutrophil # 2.84 X10^3/uL (2.7-7.7); Neutrophil % 47.1 % (47-70); Platelet Count 218 K/mm3 (150-450); RBC Distribution Width CV 13.4 % (11.6-14.6); RBC Distribution Width SD 42.5 fl (35.1-43.9); Red Blood Count 5.32 M/mm3 (4.6-6.2)
[2024-01-01 09:25] LABS: Albumin, Serum 3.7 g/dL (3.2-5.0); Anion Gap 3 (5-15); BUN 20 mg/dL (7-18); BUN/Creat Ratio 17.7 RATIO (10-20); Calcium,Total 9.9 mg/dL (8.5-10.1); Chloride 105 mmol/L (98-107); Creatinine, Serum 1.13 mg/dL (0.70-1.30); EST Glomerular Filtration Rate 68 mL/min (>60); Est Glom Filt Rate - Afr Amer 82 mL/min (>60); Glucose 107 mg/dL (74-106); Sodium Level 142 mmol/L (136-145)
== END | disposition home or self-care (01) ==
PROVIDERS: PCP Family Medicine Geriatric Medicine; Referring Provider Specialist; Visit Provider Specialist
DX: Z01.818 Encounter for other preprocedural examination (principal); Z01.810 Encounter for preprocedural cardiovascular examination; M17.11 Unilateral primary osteoarthritis, right knee; M21.161 Varus deformity, not elsewhere classified, right knee; M25.561 Pain in right knee
CPT/HCPCS: 36415; 73700; 80048; 82040; 85025; 93005

== ENCOUNTER → 2024-01-06 | Outpatient (CLI) | payer MEDICARE, OTHER, SELFPAY ==
[2024-01-06 12:31] LABS: Absolute Lymphocyte Count 2.29 X10^3/uL (0.83-4.51); Absolute Neutrophil Count 2.9 X10^3/uL (2.0-7.7); Basophil# 0.04 X10^3/uL; Basophil% 0.7 % (0-1); Eosinophil# 0.06 X10^3/uL; Hematocrit 46.4 % (40-54); Hemoglobin 15.1 g/dL (13.0-16.5); Lymphocyte # 2.29 X10^3/ul (0.83-4.51); Lymphocyte % 38.4 % (19-41); Mean Corp Hgb Conc 32.5 g/dL (32-36); Mean Corpuscular Hgb 28.4 pg (27.0-32.0); Mean Corpuscular Volume 87.2 fL (80-94); Mean Platelet Vol. 9.3 fl (6.2-12.0); Monocyte# 0.62 X10^3/uL; Monocyte% 10.4 % (0-10); NRBC Flagged by Analyzer 0 % (0-5); Neutrophil # 2.94 X10^3/uL (2.7-7.7); Neutrophil % 49.3 % (47-70); Platelet Count 218 K/mm3 (150-450); RBC Distribution Width CV 13.4 % (11.6-14.6); RBC Distribution Width SD 42.5 fl (35.1-43.9); Red Blood Count 5.32 M/mm3 (4.6-6.2)
[2024-01-06 12:39] LABS: Prothrombin Time (Protime)PT. 12.9 SECONDS (11.7-14.9)
[2024-01-06 13:10] LABS: ALB/GLOB Ratio 1.1 RATIO (0.9-2.4); AST(SGOT) 32 U/L (15-37); Alanine Aminotransfer ALT/SGPT 34 U/L (16-61); Albumin, Serum 3.9 g/dL (3.2-5.0); Alkaline Phosphatase 53 U/L (45-117); Anion Gap 3 (5-15); BUN 17 mg/dL (7-18); BUN/Creat Ratio 14.7 RATIO (10-20); Calcium,Total 10.7 mg/dL (8.5-10.1); Chloride 105 mmol/L (98-107); Creatinine, Serum 1.16 mg/dL (0.70-1.30); EST Glomerular Filtration Rate 66 mL/min (>60); Est Glom Filt Rate - Afr Amer 79 mL/min (>60); Globulin 3.7 g/dL (2.2-4.2); Glucose 106 mg/dL (74-106); Potassium 3.8 mmol/L (3.5-5.1); Protein, Total 7.6 g/dL (6.4-8.2); Sodium Level 139 mmol/L (136-145)
== END | disposition home or self-care (01) ==
PROVIDERS: PCP Family Medicine Geriatric Medicine; Visit Provider Family Medicine Geriatric Medicine
DX: Z01.818 Encounter for other preprocedural examination (principal); I10 Essential (primary) hypertension
CPT/HCPCS: 36415; 80053; 85025; 85610

== ENCOUNTER → 2024-01-07 | Outpatient (CLI) | payer MEDICARE, OTHER, SELFPAY ==
[2024-01-07 10:51] LABS: PTHIN 40.9 pg/mL (18.4-80.1)
== END | disposition home or self-care (01) ==
LOC: POLAB3 09:41
PROVIDERS: PCP Family Medicine Geriatric Medicine; Visit Provider Family Medicine Geriatric Medicine
DX: E21.5 Disorder of parathyroid gland, unspecified (principal)
CPT/HCPCS: 36415; 83970

== ENCOUNTER → 2024-01-12 | Outpatient (CLI) | payer MEDICARE, OTHER, SELFPAY ==
[2024-01-12 09:53] LABS: 24HR UR TOTAL VOLUME 2425 ml; Calcium Urine pH Range 1; Urine Calcium (Random) < 5.0 mg/dL (Not Estab.)
== END | disposition home or self-care (01) ==
LOC: LAB 08:07
PROVIDERS: PCP Family Medicine Geriatric Medicine; Referring Provider Family Medicine Geriatric Medicine; Visit Provider Family Medicine Geriatric Medicine
DX: E83.52 Hypercalcemia (principal)
CPT/HCPCS: 81050; 82340

== ENCOUNTER → 2024-03-31 | Outpatient (CLI) | payer MEDICARE, OTHER, SELFPAY ==
[2024-03-31 11:22] LABS: Absolute Lymphocyte Count 1.85 X10^3/uL (0.83-4.51); Basophil# 0.06 X10^3/uL; Basophil% 1.1 % (0-1); Eosinophil# 0.13 X10^3/uL; Eosinophils% 2.3 % (0-5); Hematocrit 44.3 % (40-54); Hemoglobin 14.3 g/dL (13.0-16.5); Lymphocyte # 1.85 X10^3/ul (0.83-4.51); Lymphocyte % 33.2 % (19-41); Mean Corp Hgb Conc 32.3 g/dL (32-36); Mean Corpuscular Hgb 28.3 pg (27.0-32.0); Mean Corpuscular Volume 87.7 fL (80-94); Monocyte# 0.57 X10^3/uL; Monocyte% 10.2 % (0-10); NRBC Flagged by Analyzer 0 % (0-5); Neutrophil # 2.95 X10^3/uL (2.7-7.7); Platelet Count 238 K/mm3 (150-450); RBC Distribution Width CV 13.4 % (11.6-14.6); RBC Distribution Width SD 43.2 fl (35.1-43.9); Red Blood Count 5.05 M/mm3 (4.6-6.2); White Blood Count 5.6 K/mm3 (4.4-11.0)
[2024-03-31 11:53] LABS: Vitamin D,25 Hydroxy 76.2 ng/mL
[2024-03-31 12:11] LABS: AST(SGOT) 23 U/L (15-37); Alanine Aminotransfer ALT/SGPT 22 U/L (16-61); Albumin, Serum 3.8 g/dL (3.2-5.0); Alkaline Phosphatase 60 U/L (45-117); Anion Gap 7 (5-15); BUN 24 mg/dL (7-18); BUN/Creat Ratio 22.2 RATIO (10-20); Calcium,Total 9.9 mg/dL (8.5-10.1); Chloride 105 mmol/L (98-107); Creatinine, Serum 1.08 mg/dL (0.70-1.30); EST Glomerular Filtration Rate 71 mL/min (>60); Est Glom Filt Rate - Afr Amer 86 mL/min (>60); Globulin 3.7 g/dL (2.2-4.2); Glucose 108 mg/dL (74-106); Potassium 3.5 mmol/L (3.5-5.1); Protein, Total 7.5 g/dL (6.4-8.2); Sodium Level 140 mmol/L (136-145)
== END | disposition home or self-care (01) ==
LOC: LAB 10:21
PROVIDERS: PCP Family Medicine Geriatric Medicine; Referring Provider Family Medicine Geriatric Medicine; Visit Provider Family Medicine Geriatric Medicine
DX: I10 Essential (primary) hypertension (principal); E55.9 Vitamin D deficiency, unspecified
CPT/HCPCS: 36415; 80053; 82306; 84443; 85025

== ENCOUNTER → 2024-08-12 | Outpatient (CLI) | payer MEDICARE, OTHER, SELFPAY | END | disposition home or self-care (01) | LOC: LABSPEC 16:51 | PROVIDERS: PCP Family Medicine Geriatric Medicine; Referring Provider Family Medicine Geriatric Medicine; Visit Provider Family Medicine Geriatric Medicine | DX: N39.0 Urinary tract infection, site not specified (principal) | CPT/HCPCS: 87077; 87086; 87088; 87186 ==

== ENCOUNTER → 2024-10-01 | Outpatient (CLI) | payer MEDICARE, OTHER, SELFPAY ==
[2024-10-01 10:56] LABS: Hematocrit 45.5 % (40-54); Hemoglobin 15.3 g/dL (13.0-16.5); Immature Granulocytes Count 0.010 X10^3/uL (0.0-0.0); Mean Corp Hgb Conc 33.6 g/dL (32-36); Mean Corpuscular Volume 86.5 fL (80-94); Mean Platelet Vol. 9.1 fl (6.2-12.0); NRBC Flagged by Analyzer 0 % (0-5); Platelet Count 211 K/mm3 (150-450); RBC Distribution Width CV 13.6 % (11.6-14.6); RBC Distribution Width SD 43.0 fl (35.1-43.9); Red Blood Count 5.26 M/mm3 (4.6-6.2); White Blood Count 5.6 K/mm3 (4.4-11.0)
[2024-10-01 11:39] LABS: AST(SGOT) 32 U/L (<=37); Alanine Aminotransfer ALT/SGPT 26 U/L (<=46); Albumin, Serum 4.3 g/dL (3.4-4.8); Alkaline Phosphatase 65 U/L (40-129); Anion Gap 12 (5-15); BUN 22 mg/dL (4-19); BUN/Creat Ratio 22.6 RATIO (10-20); Calcium,Total 10.2 mg/dL (7.6-11.0); Carbon Dioxide 23.8 mmol/L (21.0-32.0); Chloride 104 mmol/L (98-108); Globulin 3.0 g/dL (2.2-4.2); Glucose 107 mg/dL (70-99); Potassium 3.8 mmol/L (3.3-5.1); Vitamin D,25 Hydroxy 80.8 ng/mL (30-100)
--- OUTSIDE RECORDS SUMMARY | 2024-10-01 12:28 | XMS RPT_ITS | CCD ---
Author Organization [facility] Care Team Providers Care Summer Clerk Name Role Phone Micah MAJOR, Dr. Scott Edmondson Primary Care Provider [phone] Micah MAJOR, Dr. Scott Edmondson Attending Provider Micah MAJOR, Dr. Scott Edmondson Referring Provider Micah, Scott Chi Primary Care Unavailable Micah, Scott Chi Attending Unavailable Micah, Scott Chi Referring Unavailable Micah, Scott Chi Primary Care Unavailable Micah, Scott Chi Attending Unavailable Micah, Scott Chi Referring Unavailable Micah, Scott Chi Attending Unavailable Micah, Scott Chi Primary Care Unavailable Micah, Scott Chi Primary Care Unavailable SergioChrisRory Attending Unavailable Sergio, Rory Referring Unavailable Ortega, Maury Attending Unavailable Ortega Maury Referring Unavailable Micah, Scott Chi Primary Care Unavailable Micah, Scott Chi Primary Care Unavailable Micah, Scott Chi Attending Unavailable Micah, Scott Chi Primary Care Unavailable Micah, Scott Chi Attending Unavailable Chip Terrazas Attending Unavailabl e Ortega Maury Referring Unavailable Micah, Scott Chi Primary Care Unavailable Micah, Scott Chi Referring Unavailable Micah, Scott Chi Primary Care Unavailable Micah, Scott Chi Attending Unavailable Micah, Scott Chi Primary Care Unavailable Micah, Scott Chi Attending Unavailable Micah, Scott Chi Referring Unavailable Micah, Scott Chi Primary Care Unavailable Micah, Scott Chi Attending Unavailable Micah, Scott Chi Referring Unavailable Allergies Allergy Classification Reported Allergen(s) Allergy Type Date of Onset Reaction(s) Facility (10 sources) Carisoprodol Drug Allergy 11-12-2018 [facility] (10 sources) Cephalexin Drug Allergy 11-12-2018 Rash [facility] (10 sources) Codeine Drug Allergy 11-12-2018 Vomiting [facility] (10 sources) hydrALAZINE Drug Allergy 11-12-2018 Headache [facility] (10 sources) Morphine Drug Allergy 11-12-2018 Vomiting [facility] (1 source) Carisoprodol Drug Allergy 11-12-2018 [facility] (1 source) Cephalexin Drug Allergy 11-12-2018 [facility] (1 source) Codeine Drug Allergy 11-12-2018 [facility] (1 source) hydrALAZINE Drug Allergy 11-12-2018 [facility] (1 source) Morphine Drug Allergy 11-12-2018 [facility] Medications Current Medications Medication Drug Class(es) Dates Sig (Normalized) Sig (Original) amLODIPine 5 mg oral tablet (10 sources) Dihydropyridine Calcium Channel Monica Start: 08-13-2017 take 1 tablet by mouth once daily Amlodipine 5 mg tablet Active 5 mg PO daily August 13, 2017 12:00am 168 hr cloNIDine 0.47015 mg/hr transdermal system (10 sources) Central alpha-2 Adrenergic Agonist Start: 08-13-2017 Clonidine 0.2 mg/24 hr patch weekly Active 1 NMA TD EVERY WEEK August 13, 2017 12:00am Start: 08-13-2017 apply 1 dose transde rmal route every week Clonidine Active 1 PATCH TD EVERY WEEK August 12, 2017 11:00pm ergocalciferol 1.25 mg oral capsule (20 sources) Provitamin D2 Compound Start: 04-17-2018 Ergocalciferol (Estrellita min D2) 50,000 unit capsule Active 69511 U PO EVERY MONTH April 17, 2018 1:00am Start: 09-25-2017 End: 02-19-2018 Ergocalciferol (Vitamin D2) 50,000 unit capsule Discontinued 71538 U PO EVERY MONTH September 25, 2017 12:00am February 19, 2018 10:13am krill oil 500 mg oral capsule (20 sources) Start: 11-12-2018 take 1 capsule by mouth once daily Krill Oil 500 mg capsule Active 500 mg PO DAILY 0 November 12, 2018 12:00am Start: 04-11-2017 End: 02-19-2018 take 1 capsule by mouth once daily Krill Oil 500 MG capsule Discontinued 500 mg PO DAILY April 11, 2017 1:00am February 19, 2018 10:14am supplement linaclotide 0.145 mg oral capsule (20 sources) Guanylate Cyclase-C Agonist Start: 04-17-2018 take 1 capsule by mouth once daily Linaclotide (Linzess) 145 mcg capsule Active 145 ug PO DAILY April 17, 2018 1:00am Start: 09-25-2017 End: 02-19-2018 take 1 capsule by mouth once daily Linaclotide (Linzess) 145 mcg capsule Discontinued 145 ug PO daily September 25, 2017 12:00am February 19, 2018 10:13am losartan potassium 25 mg oral tablet (10 sources) Angiotensin 2 Receptor Monica Start: 11-12-2018 Losartan 25 mg table t Active 12.5 mg PO DAILY November 12, 2018 12:00am Start: 11-12-2018 take 12.5 mg by mouth once radha ly Losartan Active 12.5 MG PO DAILY November 11, 2018 11:00pm magnesium oxide 400 mg oral capsule (20 sources) Start: 04-17-2018 take 1 capsule by mouth once daily Magnesium Oxide 400 mg capsule Active 400 mg PO DAILY April 17, 2018 1:00am Start: 09-25-2017 End: 02-19-2018 take 1 capsule by mouth once daily Magnesium Oxide 400 mg capsule Discontinued 400 mg PO daily September 25, 2017 12:00am February 19, 2018 10:13am nebivolol 2.5 mg oral tablet (20 sources) Start: 04-17-2018 End: 12-25-2018 take 1 tablet by mouth once daily Nebivolol 2.5 mg tablet Active 2.5 mg PO daily December 25, 2018 6:00pm Start: 09-29-2017 End: 04-17-2018 take 5 mg by mouth once daily Nebivolol (Bystolic) 10 mg tablet Discontinued 5 mg PO daily September 29, 2017 1:34pm April 17, 2018 10:33am Start: 09-23-2017 End: 09-29-2017 take 1 tablet by mouth once daily Nebivolol (Bystolic) 10 mg tablet Discontinued 10 mg PO daily September 23, 2017 12:00am September 29, 2017 1:35pm Start: 08-13-2017 End: 09-23-2017 take 2 tablets by mouth once daily Nebivolol 2.5 mg tablet Discontinued 5 mg PO daily August 13, 2017 4:52pm September 23, 2017 11:20am blood pressure Start: 08-13-2017 End: 09-23-2017 take 5 mg by mouth once daily Nebivolol Discontinued 5 MG PO daily August 13, 2017 3:52pm September 23, 2017 10:20am Start: 06-24-2015 End: 08-13-2017 take 2 tablets by mouth twice daily Nebivolol (Bystolic) 2.5 MG tablet Discontinued 5 mg PO TWICE A DAY June 24, 2015 12:00am August 13, 2017 4:53pm blood pressure microencapsulated potassium chloride 20 meq extended release oral tablet (20 sources) Start: 09-25-2017 take 1 tablet by mouth once daily Potassium Chloride 20 mEq tablet,ER particles/crystals Active 20 meq PO daily September 25, 2017 10:39am supplement Start: 10-10-2014 End: 09-25-2017 take 1 tablet by mouth twice daily Potassium Chloride 20 MEQ tablet,ER particles/crystals Discontinued 20 meq PO TWICE A DAY October 10, 2014 12:00am September 25, 2017 10:41am supplement rosuvastatin calcium 10 mg oral tablet (20 sources) HMG-CoA Reductase Inhibitor Start: 09-23-2017 take 1 tablet by mouth once daily Rosuvastatin 10 mg tablet Active 10 mg PO daily September 23, 2017 12:00am Start: 06-24-2015 End: 09-23-2017 take 1 tablet by mouth at bedtime Rosuvastatin 40 MG tablet Discontinued 40 mg PO AT BEDTIME June 24, 2015 12:00am September 23, 2017 11:19am cholesterol Completed/Discontinued Medications Medication Drug Class(es) Dates Sig (Normalized) Sig (Original) Fish Oil-Dha-Epa (9 sources) Start: 10-10-2014 End: 02-19-2018 take 1 capsule by mouth once daily Fish Oil-Dha-Epa Discontinued 1 CAP PO DAILY October 09, 2014 11:00pm February 19, 2018 9:14am Start: 10-10-2014 End: 02-19-2018 take 1 capsule by mouth once daily Fish Oil-Dha-Epa Discontinued 1 CAP PO DAILY October 10, 2014 12:00am February 19, 2018 10:14am Fish Oil-Dha-Epa 1 EACH capsule (1 source) Start: 10-10-2014 End: 02-19-2018 take 1 capsule by mouth once daily Fish Oil-Dha-Epa 1 EACH capsule Discontinued 1 NMA PO DAILY October 10, 2014 12:00am February 19, 2018 10:14am supplement hydrALAZINE hydrochloride 50 mg oral tablet (10 sources) Arteriolar Vasodilator Start: 04-11-2017 End: 08-13-2017 take 1 tablet by mouth three times daily Hydralazine 50 MG tablet Discontinued 50 mg PO THREE TIMES A DAY April 11, 2017 1:00am August 13, 2017 4:53pm blood pressure hydroCHLOROthiazide 12.5 mg / valsartan 320 mg oral tablet (10 sources) Thiazide Diuretic, Angiotensin 2 Receptor Monica Start: 04-11-2017 End: 11-12-2018 Valsartan-Hydroch lorothiazide 1 EACH tablet Discontinued 1 NMA PO DAILY April 11, 2017 1:00am November 12, 2018 10:15am hypertension Start: 04-11-2017 End: 11-12-2018 Valsartan-Hydrochlorothiazid e Discontinued 1 EACH PO DAILY April 11, 2017 12:00am November 12, 2018 9:15am [place]-3 Fatty Acids (Fish Oil Concentrate) 1,000 mg capsule (10 sources) Start: 02-19-2018 End: 04-17-2018 take 1 capsule by mouth once daily [place]-3 Fatty Acids (Fish Oil Concentrate) 1,000 mg capsule Discontinued 1000 mg PO DAILY February 19, 2018 1:00am April 17, 2018 10:05am Start: 02-19-2018 End: 04-17-2018 take 1 capsule by mouth once daily [place]-3 Fatty Acids (Fish Oil Concentrate) 1,000 mg capsule Discontinued 1000 MG PO DAILY February 19, 2018 12:00am April 17, 2018 9:05am Start: 02-19-2018 End: 04-17-2018 take 1 capsule by mouth once daily [place]-3 Fatty Acids (Fish Oil Concentrate) 1,000 mg capsule Discontinued 1000 MG PO DAILY February 19, 2018 1:00am April 17, 2018 10:05am vitamin e 450 mg oral capsule (10 sources) Start: 10-10-2014 End: 02-19-2018 take 1 capsule by mouth once daily Vitamin E 1,000 UNIT capsule Discontinued 1000 U PO DAILY October 10, 2014 12:00am February 19, 2018 10:13am supplement Problems Active Problems Problem Classification Problem Date Documented Date Episodic/Chronic Biliary tract disease (10 sources) Acute cholecystitis due to biliary calculus; Translations: [Calculus of gallbladder with acute cholecystitis without obstruction] 09-23-2017 Episodic Cardiac dysrhythmias (10 sources) Ventricular premature beats; Translations: [Ventricular premature depolarization] 08-13-2017 Chronic Cardiac dysrhythmias (10 sources) Bradycardia; Translations: [Bradycardia, unspecified] 08-13-2017 Episodic Chronic kidney disease (10 sources) Chronic kidney disease stage 3; Translations: [Chronic kidney disease, stage III (moderate)] 08-13-2017 Chronic Conduction disorders (10 sources) Right bundle branch block; Translations: [Unspecified right bundle-branch block] 08-13-2017 Chronic Disorders of lipid metabolism (10 sources) Hyperlipidemia; Translations: [Hyperlipidemia, unspecified] 09-25-2017 Chronic Essential hypertension (20 sources) Essential hypertension; Translations: [Essential (primary) hypertension] Onset: 04-14-2024 04-01-2018 Chronic Hyperplasia of prostate (1 source) Benign prostatic hyperplasia with lower urinary tract symptoms; Translations: [Benign prostatic hyperplasia with lower urinary tract symptoms] Onset: 12-18-2023 Chronic Nutritional deficiencies (1 source) Vitamin D deficiency, unspecified; Translations: [Vitamin D deficiency, unspecified] Onset: 10-19-2023 Chronic Other endocrine disorders (1 source) Disorder of parathyroid gland, unspecified; Translations: [Disorder of parathyroid gland, unspecified] Onset: 01-21-2024 Chronic Other nutritional; endocrine; and metabolic disorders (1 source) Hypercalcemia; Translations: [Hypercalcemia] Onset: 02-10-2024 Chronic Urinary tract infections (1 source) Urinary tract infection, site not specified; Translations: [Urinary tract infection, site not specified] Onset: 08-22-2024 Episodic Past or Other Problems Problem Classification Problem Date Documented Da te Episodic/Chronic Other diseases of kidney and ureters (1 source) Unspecified hydronephrosis; Translations: [Unspecified hydronephrosis] Onset: 10-24-2023 Episodic Other liver diseases (1 source) Unspecified jaundice; Translations: [Unspecified jaundice] Onset: 10-21-2023 Episodic Results Test Name Value Interpretation Reference Range Facility Urine Cultureon 08-14-2024 [facility] Escherichia coli [place] Count >100,000 Escherichia coli: REACTION Ampicillin Islt OFE <=2 Ampicillin+Sulbac Islt OFE <=2 S Cefepime Islt OFE <=0.12 S cefTRIAXone Islt OFE <=0.25 S Ciprofloxacin Islt OFE <=0.06 S B-Lactamase Extended Susc Islt NEG Gentamicin Islt OFE <=1 S levoFLOXacin Islt OFE <=0.12 S Meropenem Islt OFE <=0.25 S Nitrofurantoin Islt OFE <=16 S Pip+Tazo Islt OFE <=4 S TMP SMX Islt OFE <=20 S Normal [facility] Comment on above: Performed By: #### M 100.2200 #### [facility] [address] [place], [address] Urine cultureOrdered By: Scott Obrien on 08-12-2024 Bacteria identified Cx Nom (U) Escherichia coli Abnormal [facility] CBC W/Diff, Automatedon 03-20 Absolute Lymph 1.85 X10 3/uL Normal 0.83-4.51 [facility] Comment on above: Performed By: #### L 100.0100, L506.1000, L500.4050, L501.9520 ####[facility] [address] [place], [address] Absolute Neut 3.0 X10 3/uL Normal 2.0-7.7 [facility] Comment on above: Performed By: #### L 100.0100, L506.1000, L500.4050, [id number] ####[facility] [address] [place], [address] Basophils/100 WBC (Bld) 1.1 % High 0-1 [facility] Comment on above: Performed By: #### L 100.0100, L506.1000, L500.4050, [id number] ####[facility] [address] [place], [address] Eosinophils/100 WBC (Bld) 2.3 % Normal 0-5 [facility] Comment on above: Performed By: #### L 100.0100, L506.1000, L500.4050, [id number] ####[facility] [address] [place], [address] Erythrocyte distribution width (RBC) [Ratio] 13.4 % Normal 11.6-14.6 [facility] Comment on above: Performed By: #### L 100.0100, L506.1000, L500.4050, [id number] ####[facility] [address] [place], [address] Hematocrit (Bld) [Volume fraction] 44.3 % Normal 40-54 [facility] Comment on above: Performed By: #### L 100.0100, L506.1000, L500.4050, [id number] ####[facility] [address] [place], [address] Hemoglobin (Bld) [Mass/Vol] 14.3 g/dL Normal 13.0-16.5 [facility] Comment on above: Performed By: #### L 100.0100, L506.1000, L500.4050, L501.9520 ####[facility] [address] [place], [address] IG% 0.200 Normal 0.0-0.9 [facility] Comment on above: Result Comment: IG% - Immature Granulocytes (promyelocytes, myelocytes and metamyelocytes) > 1% indicates that a LEFT SHIFT is Present. Performed By: #### L 100.0100, L506.1000, L500.4050, [id number] ####[facility] [address] [place], [address] Lymphocytes/100 WBC (Bld) 33.2 % Normal 19-41 [facility] Comment on above: Performed By: #### L 100.0100, L506.1000, L500.4050, [id number] ####[facility] [address] [place], [address] MCH (RBC) [Entitic mass] 28.3 pg Normal 27.0-32.0 [facility] Comment on above: Performed By: #### L 100.0100, L506.1000, L500.4050, [id number] ####[facility] [address] [place], [address] MCHC (RBC) [Mass/Vol] 32.3 g/dL Normal 32-36 [facility] Comment on above: Performed By: #### L 100.0100, L506.1000, L500.4050, [id number] ####[facility] [address] [place], [address] MCV (RBC) [Entitic vol] 87.7 fL Normal 80-94 [facility] Comment on above: Performed By: #### L 100.0100, L506.1000, L500.4050, [id number] ####[facility] [address] [place], [address] Monocytes/100 WBC (Bld) 10.2 % High 0-10 [facility] Comment on above: Performed By: #### L 100.0100, L506.1000, L500.4050, [id number] ####[facility] [address] [place], [address] Neutrophils/100 WBC (Bld) 53.0 % Normal 47-70 [facility] Comment on above: Performed By: #### L 100.0100, L506.1000, L500.4050, [id number] ####[facility] [address] [place], [address] Nucleated RBC (Bld) [#/Vol] 0 10*3/uL Normal 0-5 [facility] Comment on above: Performed By: #### L 100.0100, L506.1000, L500.4050, L501.9520 ####[facility] [address] [place], [address] Platelet mean volume (Bld) [Entitic vol] 9.0 fL Normal 6.2-12.0 [facility] Comment on above: Performed By: #### L 100.0100, L506.1000, L500.4050, [id number] ####[facility] [address] [place], [address] Platelets (Bld) [#/Vol] 238 10*3/uL Normal 150-450 [facility] Comment on above: Performed By: #### L 100.0100, L506.1000, L500.4050, [id number] ####[facility] [address] [place], [address] RBC (Bld) [#/Vol] 5.05 10*6/uL Normal 4.6-6.2 [facility] Comment on above: Performed By: #### L 100.0100, L506.1000, L500.4050, [id number] ####[facility] [address] [place], [address] RDW SD 43.2 fl Normal 35.1-43.9 [facility] Comment on above: Performed By: #### L 100.0100, L506.1000, L500.4050, [id number] ####[facility] [address] [place], [address] WBC (Bld) [#/Vol] 5.6 10*3/uL Normal 4.4-11.0 [facility] Comment on above: Performed By: #### L 100.0100, L506.1000, L500.4050, [id number] ####[facility] [address] [place], [address] Comprehensive Metabolic Prof ilon 03-31-2024 Albumin [Mass/Vol] 3.8 g/dL Normal 3.2-5.0 [facility] Comment on above: Performed By: #### M 100.2200 #### [facility] [address] [place], [address] Albumin/Globulin [Mass ratio] 1.0 {ratio} Normal 0.9-2.4 [facility] Comment on above: Performed By: #### M 100.2200 #### [facility] [address] [place], [address] ALK P 60 U/L Normal 45-117 [facility] Comment on above: Performed By: #### M 100.2200 #### [facility] [address] [place], [address] ALT [Catalytic activity/Vol] 22 U/L Normal 16-61 [facility] Comment on above: Performed By: #### M 100.2200 #### [facility] [address] [place], [address] AST [Catalytic activity/Vol] 23 U/L Normal 15-37 [facility] Comment on above: Performed By: #### M 100.2200 #### [facility] [address] [place], [address] Bilirubin [Mass/Vol] 1.30 mg/dL High 0.20-1.00 [facility] Comment on above: Result Comment: For patients on eltrombopag therapy, use of Dimension [place] TBIL is not recommended. Performed By: #### M 100.2200 #### [facility] [address] [place], [address] BUN/CRE 22.2 RATIO High 10-20 [facility] Comment on above: Performed By: #### M 100.2200 #### [facility] [address] [place], [address] CA,Total 9.9 mg/dL Normal 8.5-10.1 [facility] Comment on above: Performed By: #### M 100.2200 #### [facility] [address] [place], [address] Chloride [Moles/Vol] 105 mmol/L Normal 98-107 [facility] Comment on above: Performed By: #### M 100.2200 #### [facility] [address] [place], [address] CO2 [Moles/Vol] 28.0 mmol/L Normal 21.0-32.0 [facility] Comment on above: Performed By: #### M 100.2200 #### [facility] [address] [place], [address] Creatinine [Mass/Vol] 1.08 mg/dL Normal 0.70-1.30 [facility] Comment on above: Result Comment: The validity of the calculated GFR GFRAA in patients over 70 years has not been determined. Clinical correlation is essential. Performed By: #### M 100.2200 #### [facility] [address] [place], [address] EST GFR - AA 86 mL/min Normal >60 [facility] Comment on above: Result Comment: Afri can [place] GFR Calc Performed By: #### M 100.2200 #### [facility] [address] [place], [address] GAP 7 Normal 5-15 [facility] Comment on above: Performed By: #### M 100.2200 #### [facility] [address] [place], [address] GFR/1.73 sq M.predicted among non-blacks MDRD (S/P/Bld) [Vol rate/Area] 71 mL/min/{1.73_m2} Normal >60 [facility] Comment on above: Result Comment: Non- GFR Calc Performed By: #### M 100.2200 #### [facility] [address] [place], [address] Globulin (S) [Mass/Vol] 3.7 g/dL Normal 2.2-4.2 [facility] Comment on above: Performed By: #### M 100.2200 #### [facility] [address] [place], [address] Glucose [Mass/Vol] 108 mg/dL High 74-106 [facility] Comment on above: Result Comment: Fast ing Glucose result from 100 to 125 mg/dL suggests IMPAIRED HOMEOSTASIS per A.D.A. criteria. Performed By: #### M 100.2200 #### [facility] [address] [place], [address] Potassium [Moles/Vol] 3.5 mmol/L Normal 3.5-5.1 [facility] Comment on above: Performed By: #### M 100.2200 #### [facility] [address] [place], [address] Sodium [Moles/Vol] 140 mmol/L Normal 136-145 [facility] Comment on above: Performed By: #### M 100.2200 #### [facility] [address] [place], [address] T PROT 7.5 g/dL Normal 6.4-8.2 [facility] Comment on above: Performed By: #### M 100.2200 #### [facility] [address] [place], [address] Urea nitrogen [Mass/Vol] 24 mg/dL High 7-18 [facility] Comment on above: Performed By: #### M 100.2200 #### [facility] [address] [place], [address] Thyroid Stim Hormone (TSH)on 03-31-2024 TSH 1.480 uIU/mL Normal 0.358-3.740 [facility] Comment on above: Performed By: #### M 100.2200 #### [facility] [address] [place], [address] Vitamin D,25 Hydroxyon 03-31 Vitamin D 25-OH 76.2 ng/mL Normal [facility] Comment on above: Result Comment: Estrellita min D 25(OH) Status Range Deficiency <20 ng/mL (50nmol/L) Insufficiency 20 - 30 ng/mL (50 - 75 nmol/L) Sufficiency 30 - 100 ng/mL (75 - 250 nmol/L) Toxicity >100 ng/mL (>250 nmol/L) Performed By: #### L 100.0100, L506.1000, L500.4050, L501.9520 ####[facility] [address] [place], [address] Calcium, Urine 24HRon 2023 24HR UR Calcium TNP Normal 42.0-353.0 [facility] Comment on above: Performed By: #### L 500.7000 ####[facility] [address] [place], [address] Calcium UR pH 1 Normal [facility] Comment on above: Performed By: #### L 500.7000 ####[facility] [address] [place], [address] UR Collect Time 24.0 HR Normal 24.0-24.0 [facility] Comment on above: Performed By: #### L 500.7000 ####[facility] [address] [place], [address] UR Total Volume 2425 ml Normal [facility] Comment on above: Performed By: #### L 500.7000 ####[facility] [address] [place], [address] Urine Calcium < 5.0 Normal Not Estab. [facility] Comment on above: Performed By: #### L 500.7000 ####[facility] [address] [place], [address] PTHINon 01-07-2024 PTH 40.9 pg/mL Normal 18.4-80.1 [facility] Comment on above: Performed By: #### L 509.1000 #### [facility] [address] [place], [address] CBC W/Diff, Automatedon 11 Absolute Lymph 2.29 X10 3/uL Normal 0.83-4.51 [facility] Comment on above: Performed By: #### L 300.3900, L100.0100, L500.4050 ####[facility] [address] [place], [address] Absolute Neut 2.9 X10 3/uL Normal 2.0-7.7 [facility] Comment on above: Performed By: #### L 300.3900, L100.0100, L500.4050 ####[facility] [facility] [address] [place], [address] Basophils/100 WBC (Bld) 0.7 % Normal 0-1 [facility] Comment on above: Performed By: #### L 300.3900, L100.0100, L500.4050 ####[facility] [address] [place], [address] Eosinophils/100 WBC (Bld) 1.0 % Normal 0-5 [facility] Comment on above: Performed By: #### L 300.3900, L100.0100, L500.4050 ####[facility] [address] [place], [address] Erythrocyte distribution width (RBC) [Ratio] 13.4 % Normal 11.6-14.6 [facility] Comment on above: Performed By: #### L 300.3900, L100.0100, L500.4050 ####[facility] [address] [place], [address] Hematocrit (Bld) [Volume fraction] 46.4 % Normal 40-54 [facility] Comment on above: Performed By: #### L 300.3900, L100.0100, L500.4050 ####[facility] [address] [place], [address] Hemoglobin (Bld) [Mass/Vol] 15.1 g/dL Normal 13.0-16.5 [facility] Comment on above: Performed By: #### L 300.3900, L100.0100, L500.4050 ####[facility] [address] [place], [address] IG% 0.200 Normal 0.0-0.9 [facility] Comment on above: Result Comment: IG% - Immature Granulocytes (promyelocytes, myelocytes and metamyelocytes) > 1% indicates that a LEFT SHIFT is Present. Performed By: #### L 300.3900, L100.0100, L500.4050 ####[facility] [address] [place], [address] Lymphocytes/100 WBC (Bld) 38.4 % Normal 19-41 [facility] Comment on above: Performed By: #### L 300.3900, L100.0100, L500.4050 ####[facility] [address] [place], [address] MCH (RBC) [Entitic mass] 28.4 pg Normal 27.0-32.0 [facility] Comment on above: Performed By: #### L 300.3900, L100.0100, L500.4050 ####[facility] [address] [place], [address] MCHC (RBC) [Mass/Vol] 32.5 g/dL Normal 32-36 [facility] Comment on above: Performed By: #### L 300.3900, L100.0100, L500.4050 ####[facility] [address] [place], [address] MCV (RBC) [Entitic vol] 87.2 fL Normal 80-94 [facility] Comment on above: Performed By: #### L 300.3900, L100.0100, L500.4050 ####[facility] [address] [place], [address] Monocytes/100 WBC (Bld) 10.4 % High 0-10 [facility] Comment on above: Performed By: #### L 300.3900, L100.0100, L500.4050 ####[facility] [address] [place], [address] Neutrophils/100 WBC (Bld) 49.3 % Normal 47-70 [facility] Comment on above: Performed By: #### L 300.3900, L100.0100, L500.4050 ####[facility] [address] [place], [address] Nucleated RBC (Bld) [#/Vol] 0 10*3/uL Normal 0-5 [facility] Comment on above: Performed By: #### L 300.3900, L100.0100, L500.4050 ####[facility] [address] [place], [address] Platelet mean volume (Bld) [Entitic vol] 9.3 fL Normal 6.2-12.0 [facility] Comment on above: Performed By: #### L 300.3900, L100.0100, L500.4050 ####[facility] [address] [place], [address] Platelets (Bld) [#/Vol] 218 10*3/uL Normal 150-450 [facility] Comment on above: Performed By: #### L 300.3900, L100.0100, L500.4050 ####[facility] [address] [place], [address] RBC (Bld) [#/Vol] 5.32 10*6/uL Normal 4.6-6.2 [facility] Comment on above: Performed By: #### L 300.3900, L100.0100, L500.4050 ####[facility] [address] [place], [address] RDW SD 42.5 fl Normal 35.1-43.9 [facility] Comment on above: Performed By: #### L 300.3900, L100.0100, L500.4050 ####[facility] [address] [place], [address] WBC (Bld) [#/Vol] 6.0 10*3/uL Normal 4.4-11.0 [facility] Comment on above: Performed By: #### L 300.3900, L100.0100, L500.4050 ####[facility] [address] [place], [address] Comprehensive Metabolic Prof [facility] 01-06-2024 Albumin [Mass/Vol] 3.9 g/dL Normal 3.2-5.0 [facility] Comment on above: Performed By: #### L 300.3900, L100.0100, L500.4050 ####[facility] [address] [place], [address] Albumin/Globulin [Mass ratio] 1.1 {ratio} Normal 0.9-2.4 [facility] Comment on above: Performed By: #### L 300.3900, L100.0100, L500.4050 ####[facility] [address] [place], [address] ALK P 53 U/L Normal 45-117 [facility] Comment on above: Performed By: #### L 300.3900, L100.0100, L500.4050 ####[facility] [address] [place], [address] ALT [Catalytic activity/Vol] 34 U/L Normal 16-61 [facility] Comment on above: Performed By: #### L 300.3900, L100.0100, L500.4050 ####[facility] [address] [place], [address] AST [Catalytic activity/Vol] 32 U/L Normal 15-37 [facility] Comment on above: Performed By: #### L 300.3900, L100.0100, L500.4050 ####[facility] [address] [place], [address] Bilirubin [Mass/Vol] 2.00 mg/dL High 0.20-1.00 [facility] Comment on above: Result Comment: For patients on eltrombopag therapy, use of Dimension Dale TBIL is not recommended. Performed By: #### L 300.3900, L100.0100, L500.4050 ####[facility] [address] [place], [address] BUN/CRE 14.7 RATIO Normal 10-20 [facility] Comment on above: Performed By: #### L 300.3900, L100.0100, L500.4050 ####[facility] [address] [place], [address] CA,Total 10.7 mg/dL High 8.5-10.1 [facility] Comment on above: Performed By: #### L 300.3900, L100.0100, L500.4050 ####[facility] [address] [place], [address] Chloride [Moles/Vol] 105 mmol/L Normal 98-107 [facility] Comment on above: Performed By: #### L 300.3900, L100.0100, L500.4050 ####[facility] [address] [place], [address] CO2 [Moles/Vol] 31.0 mmol/L Normal 21.0-32.0 [facility] Comment on above: Performed By: #### L 300.3900, L100.0100, L500.4050 ####[facility] [address] [place], [address] Creatinine [Mass/Vol] 1.16 mg/dL Normal 0.70-1.30 [facility] Comment on above: Result Comment: The validity of the calculated GFR GFRAA in patients over 70 years has not been determined. Clinical correlation is essential. Performed By: #### L 300.3900, L100.0100, L500.4050 ####[facility] [address] [place], [address] EST GFR - AA 79 mL/min Normal >60 [facility] Comment on above: Result Comment: Afri can Chadian GFR Calc Performed By: #### L 300.3900, L100.0100, L500.4050 ####[facility] [address] [place], [address] GAP 3 Low 5-15 [facility] Comment on above: Performed By: #### L 300.3900, L100.0100, L500.4050 ####[facility] [address] [place], [address] GFR/1.73 sq M.predicted among non-blacks MDRD (S/P/Bld) [Vol rate/Area] 66 mL/min/{1.73_m2} Normal >60 [facility] Comment on above: Result Comment: Non- GFR Calc Performed By: #### L 300.3900, L100.0100, L500.4050 ####[facility] [address] [place], [address] Globulin (S) [Mass/Vol] 3.7 g/dL Normal 2.2-4.2 [facility] Comment on above: Performed By: #### L 300.3900, L100.0100, L500.4050 ####[facility] [address] [place], [address] Glucose [Mass/Vol] 106 mg/dL Normal 74-106 [facility] Comment on above: Result Comment: Fast ing Glucose result from 100 to 125 mg/dL suggests IMPAIRED HOMEOSTASIS per A.D.A. criteria. Performed By: #### L 300.3900, L100.0100, L500.4050 ####[facility] [address] [place], [address] Potassium [Moles/Vol] 3.8 mmol/L Normal 3.5-5.1 [facility] Comment on above: Performed By: #### L 300.3900, L100.0100, L500.4050 ####[facility] [address] [place], [address] Sodium [Moles/Vol] 139 mmol/L Normal 136-145 [facility] Comment on above: Performed By: #### L 300.3900, L100.0100, L500.4050 ####[facility] [address] [place], [address] T PROT 7.6 g/dL Normal 6.4-8.2 [facility] Comment on above: Performed By: #### L 300.3900, L100.0100, L500.4050 ####[facility] [address] [place], [address] Urea nitrogen [Mass/Vol] 17 mg/dL Normal 7-18 [facility] Comment on above: Performed By: #### L 300.3900, L100.0100, L500.4050 ####[facility] [address] [place], [address] Prothrombin Time w/INRon INR Coag (PPP) [Relative time] 1.0 {INR} Normal [facility] Comment on above: Performed By: #### L 300.3900, L100.0100, L500.4050 ####[facility] [address] [place], [address] PT Coag (PPP) [Time] 12.9 s Normal 11.7-14.9 [facility] Comment on above: Performed By: #### L 300.3900, L100.0100, L500.4050 ####[facility] [address] [place], [address] 12 Lead EKGon 01-01-2024 12 Lead EKG [facility] Cardiovascular Services [address] [place] [address] 12 Lead EKG 01/01/24 0833 MR#: [id number] Acct: [id number] Name: ALIN CLEMONS Rep #: [id number] : 1950 73 From: Chip Terrazas MD Attending Dr: Dr. Maury Vivas MD Status: REG CLI Ordering Dr: Maury Vivas MD Date: 01/01/24 Location: [place] Sex: M C Admitted: Test Reason : PREOP Blood Pressure : */* mmHG Vent. Rate : 54 BPM Atrial Rate : 54 BPM P-R Int : 138 ms QRS Dur : 144 ms QT Int : 470 ms P-R-T Axes : 23 -17 20 degrees QTcB Int : 445 ms Sinus bradycardia Right bundle branch block Cannot rule out Inferior infarct , age undetermined Abnormal ECG Confirmed by ROGER MAJOR, AGUSTINA ([id number]), editor at large FLORENCIO HALL ([id number]) on 01/01/2024 1:51:44 PM Referred By: Maury Vivas Confirmed By: AGUSTINA TERRAZAS MD 01/01/24 1348 Date Chip Terrazas MD CC: Dr. Maury Vivas MD; Dr. Scott Obrien MD Signed Normal [facility] Albumin, Serumon 01-01-2024 Albumin [Mass/Vol] 3.7 g/dL Normal 3.2-5.0 [facility] Comment on above: Performed By: #### L 501.1800, L500.2500, L100.0100 ####[facility] [address] [place], [address] Basic Metabolic Profile (BMP )on 01-01-2024 BUN/CRE 17.7 RATIO Normal 10-20 [facility] Comment on above: Performed By: #### L 501.1800, L500.2500, L100.0100 ####[facility] [address] [place], [address] CA,Total 9.9 mg/dL Normal 8.5-10.1 [facility] Comment on above: Performed By: #### L 501.1800, L500.2500, L100.0100 ####[facility] [address] [place], [address] Chloride [Moles/Vol] 105 mmol/L Normal 98-107 [facility] Comment on above: Performed By: #### L 501.1800, L500.2500, L100.0100 ####[facility] [address] [place], [address] CO2 [Moles/Vol] 34.0 mmol/L High 21.0-32.0 [facility] Comment on above: Performed By: #### L 501.1800, L500.2500, L100.0100 ####[facility] [address] [place], [address] Creatinine [Mass/Vol] 1.13 mg/dL Normal 0.70-1.30 [facility] Comment on above: Result Comment: The validity of the calculated GFR GFRAA in patients over 70 years has not been determined. Clinical correlation is essential. Performed By: #### L 501.1800, L500.2500, L100.0100 ####[facility] [address] [place], [address] EST GFR - AA 82 mL/min Normal >60 [facility] Comment on above: Result Comment: Afri can [place]adian GFR Calc Performed By: #### L 501.1800, L500.2500, L100.0100 ####[facility] [address] [place], [address] GAP 3 Low 5-15 [facility] Comment on above: Performed By: #### L 501.1800, L500.2500, L100.0100 ####[facility] [address] [place], [address] GFR/1.73 sq M.predicted among non-blacks MDRD (S/P/Bld) [Vol rate/Area] 68 mL/min/{1.73_m2} Normal >60 [facility] Comment on above: Result Comment: Non- GFR Calc Performed By: #### L 501.1800, L500.2500, L100.0100 ####[facility] [address] [place], [address] Glucose [Mass/Vol] 107 mg/dL High 74-106 [facility] Comment on above: Result Comment: Fast ing Glucose result from 100 to 125 mg/dL suggests IMPAIRED HOMEOSTASIS per A.D.A. criteria. Performed By: #### L 501.1800, L500.2500, L100.0100 ####[facility] [address] [place], [address] Potassium [Moles/Vol] 4.0 mmol/L Normal 3.5-5.1 [facility] Comment on above: Performed By: #### L 501.1800, L500.2500, L100.0100 ####[facility] [address] [place], [address] Sodium [Moles/Vol] 142 mmol/L Normal 136-145 [facility] Comment on above: Performed By: #### L 501.1800, L500.2500, L100.0100 ####[facility] [address] [place], [address] Urea nitrogen [Mass/Vol] 20 mg/dL High 7-18 [facility] Comment on above: Performed By: #### L 501.1800, L500.2500, L100.0100 ####[facility] [address] [place], [address] CBC W/Diff, Automatedon 12-18 Absolute Lymph 2.36 X10 3/uL Normal 0.83-4.51 [facility] Comment on above: Performed By: #### L 501.1800, L500.2500, L100.0100 ####[facility] [address] [place], [address] Absolute Neut 2.8 X10 3/uL Normal 2.0-7.7 [facility] Comment on above: Performed By: #### L 501.1800, L500.2500, L100.0100 ####[facility] [address] [place], [address] Basophils/100 WBC (Bld) 1.0 % Normal 0-1 [facility] Comment on above: Performed By: #### L 501.1800, L500.2500, L100.0100 ####[facility] [address] [place], [address] Eosinophils/100 WBC (Bld) 1.5 % Normal 0-5 [facility] Comment on above: Performed By: #### L 501.1800, L500.2500, L100.0100 ####[facility] [address] [place], [address] Erythrocyte distribution width (RBC) [Ratio] 13.4 % Normal 11.6-14.6 [facility] Comment on above: Performed By: #### L 501.1800, L500.2500, L100.0100 ####[facility] [address] [place], [address] Hematocrit (Bld) [Volume fraction] 46.2 % Normal 40-54 [facility] Comment on above: Performed By: #### L 501.1800, L500.2500, L100.0100 ####[facility] [address] [place], [address] Hemoglobin (Bld) [Mass/Vol] 14.7 g/dL Normal 13.0-16.5 [facility] Comment on above: Performed By: #### L 501.1800, L500.2500, L100.0100 ####[facility] [address] [place], [address] IG% 0.200 Normal 0.0-0.9 [facility] Comment on above: Result Comment: IG% - Immature Granulocytes (promyelocytes, myelocytes and metamyelocytes) > 1% indicates that a LEFT SHIFT is Present. Performed By: #### L 501.1800, L500.2500, L100.0100 ####[facility] [address] [place], [address] Lymphocytes/100 WBC (Bld) 39.2 % Normal 19-41 [facility] Comment on above: Performed By: #### L 501.1800, L500.2500, L100.0100 ####[facility] [address] [place], [address] MCH (RBC) [Entitic mass] 27.6 pg Normal 27.0-32.0 [facility] Comment on above: Performed By: #### L 501.1800, L500.2500, L100.0100 ####[facility] [address] [place], [address] MCHC (RBC) [Mass/Vol] 31.8 g/dL Low 32-36 [facility] Comment on above: Performed By: #### L 501.1800, L500.2500, L100.0100 ####[facility] [address] [place], [address] MCV (RBC) [Entitic vol] 86.8 fL Normal 80-94 [facility] Comment on above: Performed By: #### L 501.1800, L500.2500, L100.0100 ####[facility] [address] [place], [address] Monocytes/100 WBC (Bld) 11.0 % High 0-10 [facility] Comment on above: Performed By: #### L 501.1800, L500.2500, L100.0100 ####[facility] [address] [place], [address] Neutrophils/100 WBC (Bld) 47.1 % Normal 47-70 [facility] Comment on above: Performed By: #### L 501.1800, L500.2500, L100.0100 ####[facility] [address] [place], [address] Nucleated RBC (Bld) [#/Vol] 0 10*3/uL Normal 0-5 [facility] Comment on above: Performed By: #### L 501.1800, L500.2500, L100.0100 ####[facility] [address] [place], [address] Platelet mean volume (Bld) [Entitic vol] 8.9 fL Normal 6.2-12.0 [facility] Comment on above: Performed By: #### L 501.1800, L500.2500, L100.0100 ####[facility] [address] [place], [address] Platelets (Bld) [#/Vol] 218 10*3/uL Normal 150-450 [facility] Comment on above: Performed By: #### L 501.1800, L500.2500, L100.0100 ####[facility] [address] [place], [address] RBC (Bld) [#/Vol] 5.32 10*6/uL Normal 4.6-6.2 [facility] Comment on above: Performed By: #### L 501.1800, L500.2500, L100.0100 ####[facility] [address] [place], [address] RDW SD 42.5 fl Normal 35.1-43.9 [facility] Comment on above: Performed By: #### L 501.1800, L500.2500, L100.0100 ####[facility] [address] [place], [address] WBC (Bld) [#/Vol] 6.0 10*3/uL Normal 4.4-11.0 [facility] Comment on above: Performed By: #### L 501.1800, L500.2500, L100.0100 ####[facility] [address] [place], [address] Extremity Lower without Cont raon 01-01-2024 Extremity Lower without Contra [facility] Imaging Services [address] [place] [address] Extremity Lower without Contra MR#: [id number] Acct: [id number] Name: ALIN CLEMONS Rep #: [id number] : 1950 M 73 From: Naldo dennis MD PCP: Dr. Scott Obrien MD Status: REG CL Study: Extremity Lower without Contra Date of Exam: 03/02/23 Exam# [id number] Ordering Dr: Maury Vivas MD [id number] CT RIGHT LOWER EXTREMITY WITH 3-D IMAGING CLINICAL INDICATION: Unilateral primary osteoarthritis, right knee.[facility] protocol. TECHNIQUE: Axial CT images of the RIGHT lower extremity was performed without IV contrast material. Coronal and sagittal reformats were provided. The protocol utilizes one or more of the following dose reduction techniques: automated exposure control, adjustment of mA and/or kV according to patient size,and/or use of iterative reconstruction technique. RADIATION DOSAGE (If Supplied By Facility): CTDIvol = ( 18.76 ) mGy, DLP = ( 1383.59 ) mGycm COMPARISON: No relevant prior comparison study available FINDINGS: Bones: Imaging of the right hip joint was obtained. There is evidence of a degenerative changes of the right sacroiliac joint. The hip joint is unremarkable. Imaging of the right knee joint was obtained. There is a marked degree of joint space narrowing involving the medial compartment of knee joint with degenerative spur formation along the distal femoral medial condyle and medial tibial plateau. Small subchondral cysts are seen. Moderate degree of joint space narrowing and degenerative spur formation of the patellofemoral joint. No significant joint effusion is seen. Imaging of the ankle joint was obtained. No abnormality is seen. Soft Tissues: The deep soft tissue structures are unremarkable. The superficial soft tissues are unremarkable without evidence of edema, hematoma, or foreign body. CT/Extremity Lower without Contra IMPRESSION: Marked degree of osteoarthritis involving the medial compartment of knee joint as well as moderate degree of osteoarthritis involving the patellofemoral joint. Electronically Signed: Naldo Enriquez MD at 8:07 EST Reading Location ID and State: [address] [place] [address] , Service support , CC: Dr. Maury Vivas MD; Dr. Scott Obrien MD Slip Sheeter: Signed Normal [facility] PSA,Total- Diagnosticon 3 PSA, DIAGNOSTIC 1.46 ng/mL Normal 0.0-4.0 [facility] Comment on above: Result Comment: This test was performed using the TPSA assay method for the [employer] chemistry system. Values obtained with different assay methods cannot be used interchangably. When changing PSA assays in the course of monitoring a patient, additional sequential testing should be carried out to confirm baseline values. Performed By: #### L 501.9940 ####[facility] [address] [place], [address] Abdomen/Pelvis WITH Contrast on 10-10-2023 Abdomen/Pelvis WITH Contrast [facility] Imaging Services [address] [place] [address] Abdomen/Pelvis WITH Contrast MR#: [id number] Acct: [id number] Name: ALIN CLEMONS Rep #: [id number] : 1950 M 72 From: Naldo dennis MD PCP: Dr. Scott Obrien MD Status: REG CLI Study: Abdomen/Pelvis WITH Contrast Date of Exam: Exam# [id number] Ordering Dr: Scott Obrien MD 1949:[id number] STUDY: CT ABDOMEN AND PELVIS WITH CONTRAST REASON FOR EXAM: Male, 72 years old. HYDRONEPHROSIS RIGHT RADIATION DOSAGE (If Supplied By Facility): CTDIvol = ( 33.81 ) mGy, DLP = ( 1342.16 ) mGycm TECHNIQUE: Transaxial images were obtained from the dome of the diaphragm to the symphysis pubis without oral contrast. IV 100mL Isovue-300 was administered. Sagittal and coronal images were reconstructed. Individualized dose optimization techniques were used for this CT. COMPARISON: Comparison is made with prior study dated October 10, 2001. FINDINGS: The visualized lung bases are unremarkable. Coronary artery calcification. There is decreased attenuation of the liver consistent with steatosis. The patient is status post cholecystectomy. Normal spleen. Normal pancreas. Normal bilateral adrenal glands. Normal right kidney. Normal left kidney. No evidence of hydronephrosis. Normal visualized stomach. Normal small intestine. There are scattered colonic diverticula consistent with diverticulosis. The appendix is visualized and appears normal. There is scattered atherosclerotic calcification of the abdominal aorta, without a demonstrated aneurysm. Normal inferior vena cava. Normal retroperitoneum. Normal urinary bladder. Prostatic enlargement. The prostate measures 4.3 cm x 4.9 cm. This causes indentation at the bladder base. Normal abdominal wall. There are degenerative changes of the visualized lumbar spine. CT/Abdomen/Pelvis WITH Contrast IMPRESSION: No evidence of hydronephrosis. Prostatic enlargement with indentation at the bladder base. Electronically Signed: Naldo Enriquez MD at 11:54 EDT , CC: Dr. Scott Obrien MD Slip Sheeter: Signed Normal [facility] Abdomen Limitedon 10-03-2023 Abdomen Limited [facility] Imaging Services [address] [place], [place] [address] Abdomen Limited MR#: [id number] Acct: [id number] Name: ALIN CLEMONS Rep #: [id number] : 1950 M 72 From: Naldo dennis MD PCP: Dr. Scott Obrien MD Status: REG CLI Study: Abdomen Limited Date of Exam: 10/03/23 Exam# [id number] Ordering Dr: Scott Obrien MD [id number] STUDY: ABDOMINAL ULTRASOUND - RIGHT UPPER QUADRANT REASON FOR VISIT: Male, 72 years old abnormal labs TECHNIQUE: Ultrasound evaluation of the right upper quadrant was performed with real-time and static andre-scale imaging. TECHNICAL QUALITY: Adequate. COMPARISON: None. FINDINGS: Liver: The liver measures 15.6 cm. There is a heterogeneous echogenicity of the liver. The bile ducts are within normal limits. There is hepatic color flow. The direction of portal flow is hepatopetal. There is no demonstrated mass lesion. Gallbladder: The patient is status post cholecystectomy. Common Bile Duct (C.B.D.): The common bile duct measures 3.7 mm. Pancreas: Normal size of the head, body and tail of the pancreas. There is normal echogenicity of the pancreas. There is no demonstrated pancreatic mass or cyst. Right Kidney: Normal size of the right kidney. The right kidney measures 13.1 cm x 5.5 cm x 5.7 cm. Normal renal cortex. The right cortex measures 1.9 cm. There is no demonstrated renal mass or cyst. There is mild hydronephrosis of the right kidney. US/Abdomen Limited IMPRESSION: Mild degree of right hydronephrosis. Heterogeneous echotexture of the liver. Electronically Signed: Naldo Enriquez MD at 15:52 EDT , CC: Dr. Scott Obrien MD [place]: Signed Normal [facility] CBC W/Diff, Automatedon 09-17 Absolute Lymph 2.86 X10 3/uL Normal 0.83-4.51 [facility] Comment on above: Performed By: #### L 500.4050, L501.9520, L506.1000, L100.0100 #### [facility] [address] [place], [address] Absolute Neut 2.6 X10 3/uL Normal 2.0-7.7 [facility] Comment on above: Performed By: #### L 500.4050, L501.9520, L506.1000, L100.0100 #### [facility] [address] [place], [address] Basophils/100 WBC (Bld) 0.8 % Normal 0-1 [facility] Comment on above: Performed By: #### L 500.4050, L501.9520, L506.1000, L100.0100 #### [facility] [address] [place], [address] Eosinophils/100 WBC (Bld) 1.9 % Normal 0-5 [facility] Comment on above: Performed By: #### L 500.4050, L501.9520, L506.1000, L100.0100 #### [facility] [address] [place], [address] Erythrocyte distribution width (RBC) [Ratio] 13.5 % Normal 11.6-14.6 [facility] Comment on above: Performed By: #### L 500.4050, L501.9520, L506.1000, L100.0100 #### [facility] [address] [place], [address] Hematocrit (Bld) [Volume fraction] 44.3 % Normal 40-54 [facility] Comment on above: Performed By: #### L 500.4050, L501.9520, L506.1000, L100.0100 #### [facility] [address] [place], [address] Hemoglobin (Bld) [Mass/Vol] 14.3 g/dL Normal 13.0-16.5 [facility] Comment on above: Performed By: #### L 500.4050, L501.9520, L506.1000, L100.0100 #### [facility] [address] [place], [address] IG% 0.200 Normal 0.0-0.9 [facility] Comment on above: Result Comment: IG% - Immature Granulocytes (promyelocytes, myelocytes and metamyelocytes) > 1% indicates that a LEFT SHIFT is Present. Performed By: #### L 500.4050, L501.9520, L506.1000, L100.0100 #### [facility] [address] [place], [address] Lymphocytes/100 WBC (Bld) 44.5 % High 19-41 [facility] Comment on above: Performed By: #### L 500.4050, L501.9520, L506.1000, L100.0100 #### [facility] [address] [place], [address] MCH (RBC) [Entitic mass] 28.3 pg Normal 27.0-32.0 [facility] Comment on above: Performed By: #### L 500.4050, L501.9520, L506.1000, L100.0100 #### [facility] [address] [place], [address] MCHC (RBC) [Mass/Vol] 32.3 g/dL Normal 32-36 [facility] Comment on above: Performed By: #### L 500.4050, L501.9520, L506.1000, L100.0100 #### [facility] [address] [place], [address] MCV (RBC) [Entitic vol] 87.5 fL Normal 80-94 [facility] Comment on above: Performed By: #### L 500.4050, L501.9520, L506.1000, L100.0100 #### [facility] [address] [place], [address] Monocytes/100 WBC (Bld) 11.8 % High 0-10 [facility] Comment on above: Performed By: #### L 500.4050, L501.9520, L506.1000, L100.0100 #### [facility] [address] [place], [address] Neutrophils/100 WBC (Bld) 40.8 % Low 47-70 [facility] Comment on above: Performed By: #### L 500.4050, L501.9520, L506.1000, L100.0100 #### [facility] [address] [place], [address] Nucleated RBC (Bld) [#/Vol] 0 10*3/uL Normal 0-5 [facility] Comment on above: Performed By: #### L 500.4050, L501.9520, L506.1000, L100.0100 #### [facility] [address] [place], [address] Platelet mean volume (Bld) [Entitic vol] 9.1 fL Normal 6.2-12.0 [facility] Comment on above: Performed By: #### L 500.4050, L501.9520, L506.1000, L100.0100 #### [facility] [address] [place], [address] Platelets (Bld) [#/Vol] 207 10*3/uL Normal 150-450 [facility] Comment on above: Performed By: #### L 500.4050, L501.9520, L506.1000, L100.0100 #### [facility] [address] [place], [address] RBC (Bld) [#/Vol] 5.06 10*6/uL Normal 4.6-6.2 [facility] Comment on above: Performed By: #### L 500.4050, L501.9520, L506.1000, L100.0100 #### [facility] [address] [place], [address] RDW SD 43.1 fl Normal 35.1-43.9 [facility] Comment on above: Performed By: #### L 500.4050, L501.9520, L506.1000, L100.0100 #### [facility] [address] [place], [address] WBC (Bld) [#/Vol] 6.4 10*3/uL Normal 4.4-11.0 [facility] Comment on above: Performed By: #### L 500.4050, L501.9520, L506.1000, L100.0100 #### [facility] [address] [place], [address] Comprehensive Metabolic [facility] 08-14-2024 Albumin [Mass/Vol] 3.6 g/dL Normal 3.2-5.0 [facility] Comment on above: Performed By: #### L 500.4050, L501.9520, L506.1000, L100.0100 #### [facility] [address] [place], [address] Albumin/Globulin [Mass ratio] 1.0 {ratio} Normal 0.9-2.4 [facility] Comment on above: Performed By: #### L 500.4050, L501.9520, L506.1000, L100.0100 #### [facility] [address] [place], [address] ALK P 61 U/L Normal 45-117 [facility] Comment on above: Performed By: #### L 500.4050, L501.9520, L506.1000, L100.0100 #### [facility] [address] [place], [address] ALT [Catalytic activity/Vol] 29 U/L Normal 16-61 [facility] Comment on above: Performed By: #### L 500.4050, L501.9520, L506.1000, L100.0100 #### [facility] [address] [place], [address] AST [Catalytic activity/Vol] 32 U/L Normal 15-37 [facility] Comment on above: Result Comment: Slig ht Hemolysis, Result may be falsely increased. Performed By: #### L 500.4050, L501.9520, L506.1000, L100.0100 #### [facility] [address] [place], [address] Bilirubin [Mass/Vol] 1.70 mg/dL High 0.20-1.00 [facility] Comment on above: Result Comment: For patients on eltrombopag therapy, use of Dimension Dale TBIL is not recommended. Performed By: #### L 500.4050, L501.9520, L506.1000, L100.0100 #### [facility] [address] [place], [address] BUN/CRE 22.0 RATIO High 10-20 [facility] Comment on above: Performed By: #### L 500.4050, L501.9520, L506.1000, L100.0100 #### [facility] [address] [place], [address] CA,Total 9.9 mg/dL Normal 8.5-10.1 [facility] Comment on above: Performed By: #### L 500.4050, L501.9520, L506.1000, L100.0100 #### [facility] [address] [place], [address] Chloride [Moles/Vol] 105 mmol/L Normal 98-107 [facility] Comment on above: Performed By: #### L 500.4050, L501.9520, L506.1000, L100.0100 #### [facility] [address] [place], [address] CO2 [Moles/Vol] 32.0 mmol/L Normal 21.0-32.0 [facility] Comment on above: Performed By: #### L 500.4050, L501.9520, L506.1000, L100.0100 #### [facility] [address] [place], [address] Creatinine [Mass/Vol] 1.00 mg/dL Normal 0.70-1.30 [facility] Comment on above: Result Comment: The validity of the calculated GFR GFRAA in patients over 70 years has not been determined. Clinical correlation is essential. Performed By: #### L 500.4050, L501.9520, L506.1000, L100.0100 #### [facility] [address] [place], [address] EST GFR - AA 94 mL/min Normal >60 [facility] Comment on above: Result Comment: Afri can [place]adian GFR Calc Performed By: #### L 500.4050, L501.9520, L506.1000, L100.0100 #### [facility] [address] [place], [address] GAP 4 Low 5-15 [facility] Comment on above: Performed By: #### L 500.4050, L501.9520, L506.1000, L100.0100 #### [facility] [address] [place], [address] GFR/1.73 sq M.predicted among non-blacks MDRD (S/P/Bld) [Vol rate/Area] 78 mL/min/{1.73_m2} Normal >60 [facility] Comment on above: Result Comment: Non- GFR Calc Performed By: #### L 500.4050, L501.9520, L506.1000, L100.0100 #### [facility] [address] [place], [address] Globulin (S) [Mass/Vol] 3.7 g/dL Normal 2.2-4.2 [facility] Comment on above: Performed By: #### L 500.4050, L501.9520, L506.1000, L100.0100 #### [facility] [address] [place], [address] Glucose [Mass/Vol] 109 mg/dL High 74-106 [facility] Comment on above: Result Comment: Fast ing Glucose result from 100 to 125 mg/dL suggests IMPAIRED HOMEOSTASIS per A.D.A. criteria. Performed By: #### L 500.4050, L501.9520, L506.1000, L100.0100 #### [facility] [address] [place], [address] Potassium [Moles/Vol] 3.6 mmol/L Normal 3.5-5.1 [facility] Comment on above: Result Comment: Slig ht Hemolysis, Result may be falsely increased. Performed By: #### L 500.4050, L501.9520, L506.1000, L100.0100 #### [facility] [address] [place], [address] Sodium [Moles/Vol] 141 mmol/L Normal 136-145 [facility] Comment on above: Performed By: #### L 500.4050, L501.9520, L506.1000, L100.0100 #### [facility] [address] [place], [address] T PROT 7.3 g/dL Normal 6.4-8.2 [facility] Comment on above: Performed By: #### L 500.4050, L501.9520, L506.1000, L100.0100 #### [facility] [address] [place], [address] Urea nitrogen [Mass/Vol] 22 mg/dL High 7-18 [facility] Comment on above: Performed By: #### L 500.4050, L501.9520, L506.1000, L100.0100 #### [facility] [address] [place], [address] Thyroid Stim Hormone (TSH)on 10-01-2023 TSH 1.510 uIU/mL Normal 0.358-3.740 [facility] Comment on above: Performed By: #### L 500.4050, L501.9520, L506.1000, L100.0100 #### [facility] [address] [place], [address] Vitamin D,25 Hydroxyon 09-30 Vitamin D 25-OH 78.7 ng/mL Normal [facility] Comment on above: Result Comment: Estrellita min D 25(OH) Status Range Deficiency <20 ng/mL (50nmol/L) Insufficiency 20 - 30 ng/mL (50 - 75 nmol/L) Sufficiency 30 - 100 ng/mL (75 - 250 nmol/L) Toxicity >100 ng/mL (>250 nmol/L) Performed By: #### L 500.4050, L501.9520, L506.1000, L100.0100 #### [facility] [place], [address] Absolute lymphocyte countOrd ered By: Scott Obrien on 03-17-2023 Lymphocytes Auto (Unsp spec) [#/Vol] 2.71 10*3/uL 0.83-4.51 [facility] Automated lymphocyte count a s percentage of total leukocytesOrdered By: Scott Obrien on 03-17-2023 Lymphocytes/100 WBC Auto (Unsp spec) 42.0 % 19-41 [facility] Basophil percentageOrdered B y: Scott Obrien on 03-17-2023 Basophils/100 WBC (Bld) 0.8 % 0-1 [facility] Bilirubin [Mass/Vol] 1.90 mg/dL 0.20-1.00 [facility] Comment on above: For patients on eltr ombopag therapy, use of Dimension [place] TBIL is not recommended. Chloride [Moles/Vol] 109 mmol/L 98-107 [facility] Eosinophils/100 WBC (Bld) 1.7 % 0-5 [facility] Glucose [Mass/Vol] 103 mg/dL 74-106 [facility] Comment on above: Fasting Glucose resu lt from 100 to 125 mg/dL suggests IMPAIRED HOMEOSTASIS per A.D.A. criteria. Hemoglobin (Bld) [Mass/Vol] 15.6 g/dL 13.0-16.5 [facility] Monocytes/100 WBC (Bld) 12.7 % 0-10 [facility] Neutrophils (Bld) [#/Vol] 2.8 10*3/uL 2.0-7.7 [facility] Neutrophils/100 WBC (Bld) 42.8 % 47-70 [facility] Potassium [Moles/Vol] 3.7 mmol/L 3.5-5.1 [facility] Protein [Mass/Vol] 7.8 g/dL 6.4-8.2 [facility] Sodium [Moles/Vol] 142 mmol/L 136-145 [facility] WBC (Bld) [#/Vol] 6.5 10*3/uL 4.4-11.0 [facility] Determination of erythrocyte mean corpuscular volume (MCV)Ordered By: Scott Obrien on 03-17-2023 MCV (RBC) [Entitic vol] 87.7 fL 80-94 [facility] Erythrocyte distribution wid th ratioOrdered By: [facility] 03-17-[facility]23 Erythrocyte distribution width (RBC) [Ratio] 13.7 % 11.6-14.6 [facility] Erythrocyte distribution wid th standard deviationOrdered By: [facility] on 03-17-2023 Erythrocyte distribution width (RBC) [Entitic vol] 43.5 fL 35.1-43.9 [facility] Hematocrit Auto (Bld) [Volum e fraction]Ordered By: [facility] Micah 03-17-2023 Hematocrit (Bld) [Volume fraction] 47.7 % 40-54 [facility] Immature granulocytes/100 WB C Auto (Bld)Ordered By: Scott Micah on 03-17-2023 Immature granulocytes/100 WBC (Bld) 0.000 % 0.0-0.9 [facility] Comment on above: IG% - Immature Granu locytes (promyelocytes, myelocytes and metamyelocytes) > 1% indicates that a LEFT SHIFT is Present. Laboratory - Chemistry and C hemistry - challengeOrdered By: [facility] 03-17-2023 Albumin/Globulin [Mass ratio] 1.0 {ratio} 0.9-2.4 [facility] ALP [Catalytic activity/Vol] 61 U/L 45-117 [facility] ALT [Catalytic activity/Vol] 34 U/L 16-61 [facility] CO2 [Moles/Vol] 29.0 mmol/L 21.0-32.0 [facility] Globulin (S) [Mass/Vol] 4.0 g/dL 2.2-4.2 [facility] Urea nitrogen/Creatinine [Mass ratio] 16.7 mg/mg 10-20 [facility] Laboratory - Hematology and Cell countsOrdered By: Scott Obrien 03-17-2023 MCH (RBC) [Entitic mass] 28.7 pg 27.0-32.0 [facility] MCHC (RBC) [Mass/Vol] 32.7 g/dL 32-36 [facility] Nucleated RBC/100 WBC (Bld) [Ratio] 0 % 0-5 [facility] Platelets (Bld) [#/Vol] 211 10*3/uL 150-450 [facility] No Panel InformationOrdered By: Scott Obrien on 03-17-2023 Estimated GFR (MDRD) Amer 81 mL/min >60 [facility] Comment on above: GFR Calc Estimated GFR (MDRD) Non-Af Amer 67 mL/min >60 [facility] Comment on above: Non- GFR Calc Vitamin D 25-Hydroxy 82.5 ng/mL [facility] Comment on above: Vitamin D 25(OH) Sta tus Range Deficiency <20 ng/mL (50nmol/L) Insufficiency 20 - 30 ng/mL (50 - 75 nmol/L) Sufficiency 30 - 100 ng/mL (75 - 250 nmol/L) Toxicity >100 ng/mL (>250 nmol/L) Platelet mean volume [place] ker (Bld) [Entitic vol]Ordered By: Scott Obrien on 03-17-2023 Platelet mean volume (Bld) [Entitic vol] 9.5 fL 6.2-12.0 [facility] RBC Auto (Bld) [#/Vol]Ordere d By: Scott Obrien on 03-17-2023 RBC (Bld) [#/Vol] 5.44 10*6/uL 4.6-6.2 [facility] Serum or plasma calcium liliam urement (mass/volume)Ordered By: Scott Obrien on 03-17-2023 Calcium [Mass/Vol] 10.3 mg/dL 8.5-10.1 [facility] Serum or plasma creatinine m easurement (mass/volume)Ordered By: Scott Obrien on 03-17-2023 Creatinine [Mass/Vol] 1.14 mg/dL 0.70-1.30 [facility] Comment on above: The validity of the calculated GFR & GFRAA in patients over 70 years has not been determined. Clinical correlation is essential. Serum or plasma thyroid stim ulating hormone (TSH) measurement (units/volume)Ordered By: Scott Obrien on 03-17-2023 TSH Qn 1.66 uIU/mL 0.358-3.74 [facility] Serum or plasma urea nitroge n measurement (mass/volume)Ordered By: Scott Obrien on 03-17-2023 Urea nitrogen [Mass/Vol] 19 mg/dL 7-18 [facility] Thin prep Papanicolaou smear with manual screeningOrdered By: Scott Obrien on 03-17-2023 Thin prep Papanicolaou smear with manual screening 3.8 g/dL 3.2-5.0 [facility] Thin prep Papanicolaou smear with manual screening 24 U/L 15-37 [facility] Thin prep Papanicolaou smear with manual screening 4 5-15 [facility] Absolute lymphocyte countOrd ered By: Scott Obrien on 02-19-2023 Lymphocytes Auto (Unsp spec) [#/Vol] 2.67 10*3/uL 0.83-4.51 [facility] Basophil percentageOrdered B y: Scott Obrien on 02-19-2023 Basophils/100 WBC (Bld) 0.5 % 0-1 [facility] Chloride [Moles/Vol] 105 mmol/L 98-107 [facility] Eosinophils/100 WBC (Bld) 0.3 % 0-5 [facility] Glucose [Mass/Vol] 104 mg/dL 74-106 [facility] Comment on above: Fasting Glucose resu lt from 100 to 125 mg/dL suggests IMPAIRED HOMEOSTASIS per A.D.A. criteria. Neutrophils (Bld) [#/Vol] 3.4 10*3/uL 2.0-7.7 [facility] Neutrophils/100 WBC (Bld) 45.3 % 47-70 [facility] Potassium [Moles/Vol] 3.5 mmol/L 3.5-5.1 [facility] Sodium [Moles/Vol] 138 mmol/L 136-145 [facility] WBC (Bld) [#/Vol] 7.5 10*3/uL 4.4-11.0 [facility] Blood erythrocytes count (nu mber/volume)Ordered By: Scott Obrien on 02-19-2023 RBC (Bld) [#/Vol] 5.46 10*6/uL 4.6-6.2 [facility] Blood hemoglobin measurement (mass/volume)Ordered By: [facility] on 02-19-2023 Hemoglobin (Bld) [Mass/Vol] 15.6 g/dL 13.0-16.5 [facility] Blood lymphocytes/100 leukoc ytesOrdered By: [facility] on 02-19-2023 Lymphocytes/100 WBC (Bld) 35.4 % 19-41 [facility] Blood monocytes/100 leukocyt esOrdered By: [facility] on 02-19-2023 Monocytes/100 WBC (Bld) 18.4 % 0-10 [facility] Blood platelet mean volumeOr dered By: [facility] on 02-19-2023 Platelet mean volume (Bld) [Entitic vol] 9.2 fL 6.2-12.0 [facility] Determination of erythrocyte mean corpuscular volume (MCV)Ordered By: [facility] on 02-19-2023 MCV (RBC) [Entitic vol] 87.9 fL 80-94 [facility] Hematocrit Auto (Bld) [Volum e fraction]Ordered By: [facility] on 02-19-2023 Hematocrit (Bld) [Volume fraction] 48.0 % 40-54 [facility] Laboratory - Chemistry and C hemistry - challengeOrdered By: [facility] 02-19-2023 CO2 [Moles/Vol] 29.0 mmol/L 21.0-32.0 [facility] Urea nitrogen/Creatinine [Mass ratio] 13.6 mg/mg 10-20 [facility] - Hematology and Cell countsOrdered By: [facility] 02-19-2023 Erythrocyte distribution width (RBC) [Entitic vol] 43.2 fL 35.1-43.9 [facility] Erythrocyte distribution width (RBC) [Ratio] 13.5 % 11.6-14.6 [facility] Immature granulocytes/100 WBC (Bld) 0.100 % 0.0-0.9 [facility] Comment on above: IG% - Immature Granu locytes (promyelocytes, myelocytes and metamyelocytes) > 1% indicates that a LEFT SHIFT is Present. MCH (RBC) [Entitic mass] 28.6 pg 27.0-32.0 [facility] Nucleated RBC/100 WBC (Bld) [Ratio] 0 % 0-5 [facility] ([facility]) [Mass/Vol]Or dered By: Scott Obrien on 02-19-2023 MCHC (RBC) [Mass/Vol] 32.5 g/dL 32-36 [facility] No Panel InformationOrdered By: Scott Obrien on 02-19-2023 Estimated GFR (MDRD) Amer 78 mL/min >60 [facility] Comment on above: GFR Calc Estimated GFR (MDRD) Non-Af Amer 65 mL/min >60 [facility] Comment on above: Non- GFR Calc Platelets bldOrdered By: Scott Obrien on 02-19-2023 Platelets (Bld) [#/Vol] 166 10*3/uL 150-450 [facility] Serum or plasma calcium liliam urement (mass/volume)Ordered By: Scott Obrien on 02-19-2023 Calcium [Mass/Vol] 10.1 mg/dL 8.5-10.1 [facility] Serum or plasma creatinine m easurement (mass/volume)Ordered By: Scott Obrien on 02-19-2023 Creatinine [Mass/Vol] 1.18 mg/dL 0.70-1.30 [facility] Comment on above: The validity of the calculated GFR & GFRAA in patients over 70 years has not been determined. Clinical correlation is essential. Serum or plasma urea nitroge n measurement (mass/volume)Ordered By: Scott Obrien on 02-19-2023 Urea nitrogen [Mass/Vol] 16 mg/dL 7-18 [facility] Thin prep Papanicolaou smear with manual screeningOrdered By: Scott Obrien on 02-19-2023 Thin prep Papanicolaou smear with manual screening 4 5-15 [facility] No Panel InformationOrdered By: Chris Hill on 11-11-2022 Percent Free Prostate Specific Ag 0.96 ng/mL N/A [facility] Comment on above: Carlee ECLIA methodol ogy. Prostate Specific Ag, Ultra-Sensitv 3.870 ng/mL 0.000-4.000 [facility] Comment on above: Carlee ECLIA methodol ogy.According to the [place] [employer], Serum PSAshould decrease and remain at undetectable levels afterradical prostatectomy. The AUA defines biochemicalrecurrence as an initial PSA value 0.200 ng/mL or greaterfollowed by a subsequent confirmatory PSA value 0.200 ng/mLor greater. Values obtained with different assay methods orkits cannot be used interchangeably. Results cannot beinterpreted as absolute evidence of the presence or absenceof malignant disease. Serum or plasma free prostat e specific antigen/total prostate specific antigen ratioOrdered By: Chris Hill on 11-11-2022 Free PSA/Total PSA [Mass fraction] 24.8 % . [facility] Comment on above: The table below list s the probability of prostate cancer formen with non-suspicious ANSON results and total PSA between4 and 10 ng/mL, by patient age (Dangelo et al, MARILU 1998,279:1542). % Free PSA 50-64 yr 65-75 yr 0.00-10.00% 56% 55% 10.01-15.00% 24% 35% 15.01-20.00% 17% 23% 20.01-25.00% 10% 20% >25.00% 5% 9%Please note: Dangelo et al did not make specific recommendations regarding the use of percent free PSA for any other population of men.Performed at: [employer] [facility] [id number] Director: Noe Cho PhD, Phone: [phone] Absolute lymphocyte countOrd ered By: Scott Obrien on 09-16-2022 Lymphocytes Auto (Unsp spec) [#/Vol] 3.30 10*3/uL 0.83-4.51 [facility] Basophil percentageOrdered B y: Scott Obrien on 09-16-2022 Basophils/100 WBC (Bld) 0.7 % 0-1 [facility] Bilirubin [Mass/Vol] 1.50 mg/dL 0.20-1.00 [facility] Comment on above: For patients on eltr ombopag therapy, use of Dimension [place] TBIL is not recommended. Chloride [Moles/Vol] 108 mmol/L 98-107 [facility] Eosinophils/100 WBC (Bld) 1.6 % 0-5 [facility] Glucose [Mass/Vol] 119 mg/dL 74-106 [facility] Comment on above: Fasting Glucose resu lt from 100 to 125 mg/dL suggests IMPAIRED HOMEOSTASIS per A.D.A. criteria. Neutrophils (Bld) [#/Vol] 3.2 10*3/uL 2.0-7.7 [facility] Neutrophils/100 WBC (Bld) 42.7 % 47-70 [facility] Potassium [Moles/Vol] 3.6 mmol/L 3.5-5.1 [facility] Protein [Mass/Vol] 7.2 g/dL 6.4-8.2 [facility] Sodium [Moles/Vol] 141 mmol/L 136-145 [facility] WBC (Bld) [#/Vol] 7.5 10*3/uL 4.4-11.0 [facility] Blood erythrocytes count (nu mber/volume)Ordered By: Scott Obrien on 09-16-2022 RBC (Bld) [#/Vol] 5.35 10*6/uL 4.6-6.2 [facility] Blood hemoglobin measurement (mass/volume)Ordered By: Scott Obrien on 09-16-2022 Hemoglobin (Bld) [Mass/Vol] 15.3 g/dL 13.0-16.5 [facility] Blood lymphocytes/100 leukoc ytesOrdered By: Scott Obrien on 09-16-2022 Lymphocytes/100 WBC (Bld) 43.9 % 19-41 [facility] Blood monocytes/100 leukocyt esOrdered By: Scott Obrien on 09-16-2022 Monocytes/100 WBC (Bld) 10.8 % 0-10 [facility] Blood platelet mean volumeOr dered By: Scott Obrien on 09-16-2022 Platelet mean volume (Bld) [Entitic vol] 9.5 fL 6.2-12.0 [facility] Determination of erythrocyte mean corpuscular volume (MCV)Ordered By: Scott Obrien on 09-16-2022 MCV (RBC) [Entitic vol] 88.4 fL 80-94 [facility] Hematocrit Auto (Bld) [Volum e fraction]Ordered By: Scott Obrien on 09-16-2022 Hematocrit (Bld) [Volume fraction] 47.3 % 40-54 [facility] Laboratory - Chemistry and C hemistry - challengeOrdered By: Scott Obrien on 09-16-2022 ALP [Catalytic activity/Vol] 68 U/L 45-117 [facility] ALT [Catalytic activity/Vol] 38 U/L 16-61 [facility] CO2 [Moles/Vol] 27.0 mmol/L 21.0-32.0 [facility] Globulin (S) [Mass/Vol] 3.6 g/dL 2.2-4.2 [facility] Urea nitrogen/Creatinine [Mass ratio] 17.5 mg/mg 10-20 [facility] Laboratory - Hematology and Cell countsOrdered By: Scott Obrien on 09-16-2022 Erythrocyte distribution width (RBC) [Entitic vol] 43.0 fL 35.1-43.9 [facility] Erythrocyte distribution width (RBC) [Ratio] 13.4 % 11.6-14.6 [facility] Immature granulocytes/100 WBC (Bld) 0.300 % 0.0-0.9 [facility] Comment on above: IG% - Immature Granu locytes (promyelocytes, myelocytes and metamyelocytes) > 1% indicates that a LEFT SHIFT is Present. MCH (RBC) [Entitic mass] 28.6 pg 27.0-32.0 [facility] Nucleated RBC/100 WBC (Bld) [Ratio] 0 % 0-5 [facility] MCHC Auto (RBC) [Mass/Vol]Or dered By: Scott Obrien on 09-16-2022 MCHC (RBC) [Mass/Vol] 32.3 g/dL 32-36 [facility] No Panel InformationOrdered By: Scott Obrien on 09-16-2022 Estimated GFR (MDRD) Amer 91 mL/min >60 [facility] Comment on above: GFR Calc Estimated GFR (MDRD) Non-Af Amer 76 mL/min >60 [facility] Comment on above: Non- GFR Calc Thyroid Stimulating Hormone (TSH) 2.04 uIU/mL 0.358-3.74 [facility] Vitamin D 25-Hydroxy 68.1 ng/mL [facility] Comment on above: Vitamin D 25(OH) Sta tus Range Deficiency <20 ng/mL (50nmol/L) Insufficiency 20 - 30 ng/mL (50 - 75 nmol/L) Sufficiency 30 - 100 ng/mL (75 - 250 nmol/L) Toxicity >100 ng/mL (>250 nmol/L) Platelets bldOrdered By: Scott Obrien on 09-16-2022 Platelets (Bld) [#/Vol] 220 10*3/uL 150-450 [facility] Serum or plasma albumin liliam urement (mass/volume)Ordered By: Scott Obrien on 09-16-2022 Albumin [Mass/Vol] 3.6 g/dL 3.2-5.0 [facility] Serum or plasma albumin/glob ulin mass ratioOrdered By: Scott Obrien on 09-16-2022 Albumin/Globulin [Mass ratio] 1.0 {ratio} 0.9-2.4 [facility] Serum or plasma calcium liliam urement (mass/volume)Ordered By: Scott Obrien on 09-16-2022 Calcium [Mass/Vol] 9.7 mg/dL 8.5-10.1 [facility] Serum or plasma creatinine m easurement (mass/volume)Ordered By: Scott Obrien on 09-16-2022 Creatinine [Mass/Vol] 1.03 mg/dL 0.70-1.30 [facility] Comment on above: The validity of the calculated GFR & GFRAA in patients over 70 years has not been determined. Clinical correlation is essential. Serum or plasma urea nitroge n measurement (mass/volume)Ordered By: Scott Obrien on 09-16-2022 Urea nitrogen [Mass/Vol] 18 mg/dL 7-18 [facility] Thin prep Papanicolaou smear with manual screeningOrdered By: Scott Obrien on 09-16-2022 Thin prep Papanicolaou smear with manual screening 31 U/L 15-37 [facility] Thin prep Papanicolaou smear with manual screening 6 5-15 [facility] No Panel InformationOrdered By: PATEL Evans on 04-23-2022 Prostate Specific Antigen Total 7.29 ng/mL 0.0-4.0 [facility] Comment on above: This test was perfor med using the TPSA assay method for the[employer] chemistry system. Values obtained with differentassay methods cannot be used interchangably.When changing PSA assays in the course of monitoring apatient, additional sequential testing should be carriedout to confirm baseline values. Absolute lymphocyte countOrd ered By: Scott Obrien on 03-15-2022 Lymphocytes Auto (Unsp spec) [#/Vol] 4.05 10*3/uL 0.83-4.51 [facility] Basophil percentageOrdered B y: Scott Obrien on 03-15-2022 Basophils/100 WBC (Bld) 0.5 % 0-1 [facility] Bilirubin [Mass/Vol] 1.60 mg/dL 0.20-1.00 [facility] Comment on above: For patients on eltr ombopag therapy, use of [place] TBIL is not recommended. Chloride [Moles/Vol] 106 mmol/L 98-107 [facility] Eosinophils/100 WBC (Bld) 1.6 % 0-5 [facility] Glucose [Mass/Vol] 97 mg/dL 74-106 [facility] Neutrophils (Bld) [#/Vol] 2.7 10*3/uL 2.0-7.7 [facility] Neutrophils/100 WBC (Bld) 35.3 % 47-70 [facility] Potassium [Moles/Vol] 3.8 mmol/L 3.5-5.1 [facility] Comment on above: Slight Hemolysis, Re sult may be falsely increased. Protein [Mass/Vol] 7.7 g/dL 6.4-8.2 [facility] Sodium [Moles/Vol] 141 mmol/L 136-145 [facility] Testosterone [Mass/Vol] 328.01 ng/dL [facility] Comment on above: CENTRAL 90% REFERENC E RANGES MALE AGE <50 197.44 - 669.58 ng/dL MALE AGE > or = 50 187.72 - 684.19 ng/dL FEMALE AGE <50 8.38 - 35.01 ng/dL FEMALE AGE > or = 50 <7.00 - 35.92 ng/dL Effective as of 09/12/20 WBC (Bld) [#/Vol] 7.7 10*3/uL 4.4-11.0 [facility] Blood erythrocytes count (nu mber/volume)Ordered By: Scott Obrien on 03-15-2022 RBC (Bld) [#/Vol] 5.56 10*6/uL 4.6-6.2 [facility] Blood hemoglobin measurement (mass/volume)Ordered By: Scott Obrien on 03-15-2022 Hemoglobin (Bld) [Mass/Vol] 15.5 g/dL 13.0-16.5 [facility] Blood lymphocytes/100 leukoc ytesOrdered By: Scott Obrien on 03-15-2022 Lymphocytes/100 WBC (Bld) 52.3 % 19-41 [facility] Blood monocytes/100 leukocyt esOrdered By: Scott Obrien on 03-15-2022 Monocytes/100 WBC (Bld) 10.2 % 0-10 [facility] Blood platelet mean volumeOr dered By: Scott Obrien on 03-15-2022 Platelet mean volume (Bld) [Entitic vol] 9.7 fL 6.2-12.0 [facility] Determination of erythrocyte mean corpuscular volume (MCV)Ordered By: Scott Obrien on 03-15-2022 MCV (RBC) [Entitic vol] 83.5 fL 80-94 [facility] Hematocrit Auto (Bld) [Volum e fraction]Ordered By: Scott Obrien on 03-15-2022 Hematocrit (Bld) [Volume fraction] 46.4 % 40-54 [facility] Laboratory - Chemistry and C hemistry - challengeOrdered By: [facility] 03-15-2022 ALP [Catalytic activity/Vol] 70 U/L 45-117 [facility] ALT [Catalytic activity/Vol] 37 U/L 16-61 [facility] CO2 [Moles/Vol] 27.0 mmol/L 21.0-32.0 [facility] Globulin (S) [Mass/Vol] 3.9 g/dL 2.2-4.2 [facility] Urea nitrogen/Creatinine [Mass ratio] 15.5 mg/mg 10-20 [facility] Laboratory - Hematology and Cell countsOrdered By: Scott Obrien 03-15-2022 Erythrocyte distribution width (RBC) [Entitic vol] 41.7 fL 35.1-43.9 [facility] Erythrocyte distribution width (RBC) [Ratio] 13.7 % 11.6-14.6 [facility] Immature granulocytes/100 WBC (Bld) 0.100 % 0.0-0.9 [facility] Comment on above: IG% - Immature Granu locytes (promyelocytes, myelocytes and metamyelocytes) > 1% indicates that a LEFT SHIFT is Present. MCH (RBC) [Entitic mass] 27.9 pg 27.0-32.0 [facility] Nucleated RBC/100 WBC (Bld) [Ratio] 0 % 0-5 [facility] MCHC Auto (RBC) [Mass/Vol]Or dered By: Scott Obrien on 03-15-2022 MCHC (RBC) [Mass/Vol] 33.4 g/dL 32-36 [facility] No Panel InformationOrdered By: Scott Obrien on 03-15-2022 Estimated GFR (MDRD) Amer 80 mL/min >60 [facility] Comment on above: GFR Calc Estimated GFR (MDRD) Non-Af Amer 66 mL/min >60 [facility] Comment on above: Non- GFR Calc Thyroid Stimulating Hormone (TSH) 1.95 uIU/mL 0.358-3.74 [facility] Vitamin D 25-Hydroxy 74.6 ng/mL [facility] Comment on above: Vitamin D 25(OH) Sta tus Range Deficiency <20 ng/mL (50nmol/L) Insufficiency 20 - 30 ng/mL (50 - 75 nmol/L) Sufficiency 30 - 100 ng/mL (75 - 250 nmol/L) Toxicity >100 ng/mL (>250 nmol/L) Platelets bldOrdered By: Scott Obrien on 03-15-2022 Platelets (Bld) [#/Vol] 259 10*3/uL 150-450 [facility] Serum or plasma albumin liliam urement (mass/volume)Ordered By: Scott Obrien on 03-15-2022 Albumin [Mass/Vol] 3.8 g/dL 3.2-5.0 [facility] Serum or plasma albumin/glob ulin mass ratioOrdered By: Scott Obrien 03-15-2022 Albumin/Globulin [Mass ratio] 1.0 {ratio} 0.9-2.4 [facility] Serum or plasma calcium liliam urement (mass/volume)Ordered By: Scott Obrien on 03-15-2022 Calcium [Mass/Vol] 9.8 mg/dL 8.5-10.1 [facility] Serum or plasma creatinine m easurement (mass/volume)Ordered By: Scott Obrien on 03-15-2022 Creatinine [Mass/Vol] 1.16 mg/dL 0.70-1.30 [facility] Comment on above: The validity of the calculated GFR & GFRAA in patients over 70 years has not been determined. Clinical correlation is essential. Serum or plasma urea nitroge n measurement (mass/volume)Ordered By: Scott Micah on 03-15-2022 Urea nitrogen [Mass/Vol] 18 mg/dL 7-18 [facility] Thin prep Papanicolaou smear with manual screeningOrdered By: Scott Obrien on 03-15-2022 Thin prep Papanicolaou smear with manual screening 38 U/L 15- [facility] Comment on above: Slight Hemolysis, Re sult may be falsely increased. Thin prep Papanicolaou smear with manual screening 8 5-15 [facility] Laboratory - Microbiology an d Antimicrobial susceptibilityon 09-27-2021 SARS-CoV-2 (COVID-19) RNA JUAN MANUEL+probe Ql (Unsp spec) Detected Not Detect [facility] Work Phone: Comment on above: Normal Reference Ran ge: Not DetectedMethod:(RT-PCR) real-time reverse transcriptase PCRLuminex JENNY Instrument*The Food and Drug Administration (FDA) has issued an Emergency Use Authorization (EAU) for the JENNY SARS-CoV-2 Assay for the rapid detection of the virus that causes COVID-19. This test has been validated, but the FDAs independent review of this validation is pending.*Negative results do not preclude infection and should not be used as the sole basis for treatment or patient management. Optimum specimen types and timing for peak viral levels during infections caused by SARS-CoV-2 have not been determined. Collection of multiple specimens from the same patient may be necessary to detect the virus. The possibility of a false negative result should be considered if the patient has clinical presentation or has had recent exposure. Absolute lymphocyte counton 09-14-2021 Lymphocytes Auto (Unsp spec) [#/Vol] 3.36 10*3/uL 0.83-4.51 [facility] Work Phone: Basophil percentageon 2021 Basophils/100 WBC (Bld) 0.7 % 0-1 [facility] Work Phone: Bilirubin [Mass/Vol] 1.50 mg/dL 0.20-1.00 [facility] Work Phone: Comment on above: For patients on eltr ombopag therapy, use of [place] TBIL is not recommended. Chloride [Moles/Vol] 106 mmol/L 98-107 [facility] Work Phone: Eosinophils/100 WBC (Bld) 1.6 % 0-5 [facility] Work Phone: Glucose [Mass/Vol] 103 mg/dL 74-106 [facility] Work Phone: Comment on above: Fasting Glucose resu lt from 100 to 125 mg/dL suggests IMPAIRED HOMEOSTASIS per A.D.A. criteria. Neutrophils (Bld) [#/Vol] 3.4 10*3/uL 2.0-7.7 [facility] Work Phone: Neutrophils/100 WBC (Bld) 44.4 % 47-70 [facility] Work Phone: Potassium [Moles/Vol] 3.8 mmol/L 3.5-5.1 [facility] Work Phone: Protein [Mass/Vol] 7.5 g/dL 6.4-8.2 [facility] Work Phone: Sodium [Moles/Vol] 138 mmol/L 136-145 [facility] Work Phone: Testosterone [Mass/Vol] 390.07 ng/dL [facility] Work Phone: Comment on above: CENTRAL 90% REFERENC E RANGES MALE AGE <50 197.44 - 669.58 ng/dL MALE AGE > or = 50 187.72 - 684.19 ng/dL FEMALE AGE <50 8.38 - 35.01 ng/dL FEMALE AGE > or = 50 <7.00 - 35.92 ng/dL Effective as of 09/12/20 WBC (Bld) [#/Vol] 7.7 10*3/uL 4.4-11.0 [facility]: Blood erythrocytes count (nu mber/volume)on 09-14-2021 RBC (Bld) [#/Vol] 5.38 10*6/uL 4.6-6.2 [facility]: Blood hemoglobin measurement (mass/volume)on 09-14-2021 Hemoglobin (Bld) [Mass/Vol] 14.8 g/dL 13.0-16.5 [facility] Work Phone: [phone] Blood lymphocytes/100 leukoc yteson 09-14-2021 Lymphocytes/100 WBC (Bld) 43.8 % 19-41 [facility] Work Phone: [phone] Blood monocytes/100 leukocyt eson 09-14-2021 Monocytes/100 WBC (Bld) 9.4 % 0-10 [facility] Work Phone: [phone] Blood platelet mean volumeon 09-14-2021 Platelet mean volume (Bld) [Entitic vol] 9.0 fL 6.2-12.0 [facility] Work Phone: Determination of erythrocyte mean corpuscular volume (MCV)on 09-14-2021 MCV (RBC) [Entitic vol] 86.2 fL 80-94 [facility] Work Phone: Hematocrit Auto (Bld) [Volum e fraction]on 09-14-2021 Hematocrit (Bld) [Volume fraction] 46.4 % 40-54 [facility] Work Phone: Laboratory - Chemistry and C hemistry - challengeon 09-14-2021 ALP [Catalytic activity/Vol] 71 U/L 45-117 [facility] Work Phone: [phone] ALT [Catalytic activity/Vol] 31 U/L 16-61 [facility] Work Phone: [phone] CO2 [Moles/Vol] 29.0 mmol/L 21.0-32.0 [facility] Work Phone: [phone] Globulin (S) [Mass/Vol] 3.7 g/dL 2.2-4.2 [facility] Work Phone: [phone] Urea nitrogen/Creatinine [Mass ratio] 16.7 mg/mg 10-20 [facility] Work Phone: [phone] Laboratory - Hematology and Cell countson 09-14-2021 Erythrocyte distribution width (RBC) [Entitic vol] 45.1 fL 35.1-43.9 [facility] Work Phone: [phone] Erythrocyte distribution width (RBC) [Ratio] 14.3 % 11.6-14.6 [facility] Work Phone: [phone] Immature granulocytes/100 WBC (Bld) 0.100 % 0.0-0.9 [facility] Work Phone: [phone] Comment on above: IG% - Immature Granu locytes (promyelocytes, myelocytes and metamyelocytes) > 1% indicates that a LEFT SHIFT is Present. MCH (RBC) [Entitic mass] 27.5 pg 27.0-32.0 [facility] Work Phone: [phone] Nucleated RBC/100 WBC (Bld) [Ratio] 0 % 0-5 [facility] Work Phone: [phone] MCHC Auto (RBC) [Mass/Vol]on 09-14-2021 MCHC (RBC) [Mass/Vol] 31.9 g/dL 32-36 [facility] Work Phone: [phone] Panel Informationon 09-14 Estimated GFR (MDRD) Amer 93 mL/min >60 [facility] Work Phone: [phone] Comment on above: GFR Calc Estimated GFR (MDRD) Non-Af Amer 77 mL/min >60 [facility] Work Phone: [phone] Comment on above: Non- GFR Calc Prostate Specific Antigen Screen 8.76 ng/mL 0.00-4.00 [facility] Work Phone: [phone] Comment on above: This test was perfor med using the TPSA assay method for the[employer] chemistry system. Values obtained with differentassay methods cannot be used interchangably.When changing PSA assays in the course of monitoring apatient, additional sequential testing should be carriedout to confirm baseline values. Thyroid Stimulating Hormone (TSH) 1.60 uIU/mL 0.358-3.74 [facility] Work Phone: Vitamin D 25-Hydroxy 77.2 ng/mL [facility] Work Phone: Comment on above: Vitamin D 25(OH) Sta tus Range Deficiency <20 ng/mL (50nmol/L) Insufficiency 20 - 30 ng/mL (50 - 75 nmol/L) Sufficiency 30 - 100 ng/mL (75 - 250 nmol/L) Toxicity >100 ng/mL (>250 nmol/L) Platelets bldon 09-14-2021 Platelets (Bld) [#/Vol] 250 10*3/uL 150-450 [facility] Work Phone: Serum or plasma albumin liliam urement (mass/volume)on 09-14-2021 Albumin [Mass/Vol] 3.8 g/dL 3.2-5.0 [facility] Work Phone: Serum or plasma albumin/glob ulin mass ratioon 09-14-2021 Albumin/Globulin [Mass ratio] 1.0 {ratio} 0.9-2.4 [facility] Work Phone: Serum or plasma calcium liliam urement (mass/volume)on 09-14-2021 Calcium [Mass/Vol] 9.9 mg/dL 8.5-10.1 [facility] Work Phone: Serum or plasma creatinine m easurement (mass/volume)on 09-14-2021 Creatinine [Mass/Vol] 1.02 mg/dL 0.70-1.30 [facility] Work Phone: Comment on above: The validity of the calculated GFR & GFRAA in patients over 70 years has not been determined. Clinical correlation is essential. Serum or plasma urea nitroge n measurement (mass/volume)on 09-14-2021 Urea nitrogen [Mass/Vol] 17 mg/dL 7-18 [facility] Work Phone: Thin prep Papanicolaou smear with manual screeningon 09-14-2021 Thin prep Papanicolaou smear with manual screening 26 U/L 15-37 [facility] Work Phone: Thin prep Papanicolaou smear with manual screening 3 5-15 [facility] Work Phone: Culture, urine Bacteria identified Cx Nom (U) Culture exhibits no growth. [facility] Work Phone: Encounters Encounter Date Encounter Type Care Provider Facility Start: 08-12-2024 End: 08-12-[address] Scott Obrien MD Work Phone: -Laboratory Specimen Start: 08-12-2024 End: 08-12-[address] Scott Obrien MD -Laboratory Specimen Work Phone: Start: 08-12-2024 End: 08-12-2024 ambulatory Scott Chi Micah Facility:[facility] Start: 03-31-2024 End: 03-31-2024 ambulatory Scott Chi Micah Facility:[facility] Start: 01-21-2024 [facility]: 01-12-2024 End: 01-12-2024 ambulatory Scott Chi Micah Facility:[facility] Start: 01-07-2024 End: 01-07-2024 ambulatory Scott Chi Micah Facility:[facility] Start: 01-06-2024 End: 01-06-2024 ambulatory Scott Chi Micah Facility:[facility] Start: 01-01-2024 End: 01-01-2024 ambulatory Chip Terrazas Facility:[facility] Start: 01-01-2024 End: 01-01-2024 ambulatory Maury Vivas Facility:[facility] Start: 11-17-2023 End: 11-17-2023 ambulatory Scott Chi Micah Facility:[facility] Start: 10-10-2023 End: 10-10-2023 ambulatory Scott Chi Micah Facility:[facility] Start: 10-03-2023 End: 10-03-2023 ambulatory Scott Chi Micah Facility:[facility] Start: 10-01-2023 End: 10-01-2023 ambulatory Scott Chi Micah Facility:[facility] Start: 03-17-2023 End: 03-17-2023 ambulatory [facility] Work Phone: Start: 03-17-2023 End: 03-17-2023 Patient encounter procedure [facility]-Laboratory, Phy Office 3rd Flr Start: 02-19-2023 End: 02-19-2023 ambulatory [facility] Work Phone: Start: 02-19-2023 End: 02-19-2023 Patient encounter procedure [facility]-Radiology, [facility] Work Phone: Start: 11-11-2022 End: 11-11-2022 Patient encounter procedure [facility]-Laboratory Work Phone: Start: 09-16-2022 End: 09-16-2022 ambulatory [facility] Work Phone: Start: 09-16-2022 End: 09-16-2022 Patient encounter procedure [facility]-Laboratory, Phy Office 3rd Flr Start: 04-23-2022 End: 04-23-2022 ambulatory [facility] Work Phone: Start: 04-23-2022 End: 04-23-2022 Patient encounter procedure [facility]-Laboratory Start: 03-15-2022 End: 03-15-2022 ambulatory [facility] Work Phone: Start: 03-15-2022 End: 03-15-2022 Patient encounter procedure [facility]-Laboratory, Phy Office 3rd Flr Start: 10-10-2021 End: 10-10-2021 ambulatory [facility] Work Phone: Start: 10-10-2021 End: 10-10-2021 Patient encounter procedure [facility]-Cat Scan, [facility] Start: 09-27-2021 End: 09-27-2021 Patient encounter procedure [facility]-Pulmonary Services/Neurology Start: 09-14-2021 End: 09-14-2021 Patient encounter procedure [facility]-Laboratory Start: 06-25-2015 Patient encounter status [facility] Procedures Date Procedure Procedure Detail Performing Clinician Start: 08-12-[address] Scott grady MD Work Phone: Start: 02-19-2023 Plain chest X-ray Start: 10-10-2021 CT of abdomen and pe lvis without contrast Urine culture Payers Date Payer Category Payer Private Health Insurance [id number] 2023 Self-pay [id number] 2015 Medicare [id number] 2011 Unknown [id number] Unknown [id number] 2.16.8 [id number] Unknown [id number] 2.16.8 [id number] Unknown [id number] 2.16.8 [id number] Unknown [id number] 2.16.8 [id number] Unknown [id number] 2.16.8 [id number] Unknown [id number] 2.16.8 [id number] Unknown [id number] 2.16.8 [id number] Unknown [id number] 2.16.8 [id number] Unknown [id number] 2.16.8 [id number] Unknown [id number] 2.16.8 [id number] Unknown [id number] 2.16.8 [id number] Social History Date Type Detail Facility Start: 11-12-2018 End: 11-12-2018 Tobacco smoking status NHIS Unknown if ever smoked [facility] Start: 1950 Sex Assigned At Male W [facility] Start: 11-12-2018 Tobacco smoking stat us NHIS Never smoked tobacco (finding) [facility] Evaluation note Note Date & Type Note Facility Evaluation note No assessment information availa ble [facility] Work Phone: Reason for referral (narrative) Note Date & Type Note Facility Reason for referral (narrative) No reason for referral information available [facility] Work Phone: Family History No Family History Records Found Relationship Condition Age at Onset Recorded Date/T eliu father Sudden cardiac Unknown Myocardial infarction 52 mother Hypertension Unknown Advance Directives No Advanced Directives Records Found Advance Directive Response Recorded Date/ Time Advance Directives No June 24, 2015 9:38am Living Will No April 11, 2 018 2:05pm Power of Nutritional Yeast Supervisor No April 11, 2017 2:05pm Advance Directive Response Recorded Date/ Time Advance Directives No June 24, 2015 8:38am Living Will No April 11, 2 018 1:05pm Power of Nutritional Yeast Supervisor No April 11, 2017 1:05pm Advance Directive Response Recorded Date/ Time Advance Directives No June 24, 2015 9:38am Chief Complaint and Reason for Visit Chief Complaint screening/ LABSPEC-U RINE CULTURE Chief Complaint screening/ LABSPEC-U RINE CULTURE GROSS HEMATURIA Chief Complaint NEED LAB ORDER Summary Purpose Additional Source Comments Goals (unrecognized section and content) Goals may be documented in a n alternate sectionGoals may be documented in an alternate sectionGoals may be documented in an alternate sectionGoals may be documented in an alternate sectionGoals may be documented in an alternate sectionGoals may be documented in an alternate sectionGoals may be documented in an alternate sectionGoals may be documented in an alternate sectionGoals may be documented in an alternate sectionGoals may be documented in an alternate section Care Teams (unrecognized sec tion and content) Team Status: Active Member Role Status Dates Dr. Scott Obrien MD Family Provider Active Dr. Scott Obrien MD Primary Care Provider Active Team Status: Inactive Member Role Status Dates Dr. Scott Obrien MD Primary Care Provider Active Scott Obrien MD Attending Provider Active Team Status: Inactive Member Role Status Dates Dr. Scott Obrien MD Primary Care Provider Active Scott RAMÍREZ MD Attending Provider Active Team Status: Inactive Member Role Status Dates Dr. Scott Obrien MD Primary Care Provider Active Elmira Evans , SNUFF CONTAINER INSPECTOR-C Attending Provider, Referrin g Provider Active Team Status: Inactive Member Role Status Dates Dr. Scott Obrien MD Primary Care Provider, Attending Provider Active Team Status: Active Member Role Status Dates Dr. Scott Obrien MD Primary Care Provi maco, Attending Provider, Referring Provider Active Team Status: Inactive Member Role Status Dates Dr. Scott Obrien MD Primary Care Provider Active Dr. Chris Hill MD Attending Provider, Referr ing Provider Active Team Status: Inactive Member Role Status Dates Dr. Scott Obrien MD Primary Care Provi maco, Attending Provider, Referring Provider Active Team Status: Active Member Role/Relationship Status Dates Dr. Scott Obrien MD Family Provider Active Dr. Scott Obrien MD Primary Care Provider Active Team Status: Inactive Member Role/Relationship Status Dates Dr. Scott Obrien MD Primary Care Provider Active Start: August 12, 2024 End: August 12, 2024 Dr. Scott Obrien MD Attending Provider Active Start: August 12, 2024 End: August 12, 2024 Dr. Scott Obrien MD Referring Provider Active Start: August 12, 2024 End: August 12, 2024 (unrecognized sect ion and content) No Status Records Found INFORMATION SOURCE (unrecogn ized section and content) DATE CREATED AUTHOR 08/25/2024 [facility] FOR RECORDS PERTAINING TO PATIENTS WHO ARE OR HAVE BEEN ENROLLED IN A CHEMICAL DEPENDENCY/SUBSTANCEABUSE PROGRAM, SOME INFORMATION MAY BE OMITTED. This clinical summary was aggregated from multiple sources. Caution should be exercised in using it in the provision of clinical care. This summary normalizes information from multiple sources, and as a consequence, information in this document may materially change the coding, format and clinical context of patient data. In addition, data may be omitted in some cases. CLINICAL DECISIONS SHOULD BE BASED ON THE PRIMARY CLINICAL RECORDS. [facility] [employer] [facility]. provides no warranty or guarantee of the accuracy or completeness of information in this document.
[2024-10-01 13:33] LABS: Cholesterol 158 mg/dL (<=200); Low Density Lipoprotein Calc. 81 mg/dL; Triglycerides 157 mg/dL; Very Low Density Lipoprotein 31 mg/dL (5-40); cholesterol:hdl ratio screen 3.44
== END | disposition home or self-care (01) ==
PROVIDERS: PCP Family Medicine Geriatric Medicine; Referring Provider Family Medicine Geriatric Medicine; Visit Provider Family Medicine Geriatric Medicine
DX: I10 Essential (primary) hypertension (principal); E55.9 Vitamin D deficiency, unspecified; E78.5 Hyperlipidemia, unspecified
CPT/HCPCS: 36415; 80053; 80061; 82306; 84443; 85025

== ENCOUNTER → 2024-11-22 | Outpatient (CLI) | payer MEDICARE, OTHER, SELFPAY ==
[2024-11-22 10:04] LABS: PSA,Total- Diagnostic 1.17 ng/mL (0.00-4.00)
== END | disposition home or self-care (01) ==
LOC: LAB 08:24
PROVIDERS: PCP Family Medicine Geriatric Medicine; Referring Provider Urology; Visit Provider Urology
DX: R97.20 Elevated prostate specific antigen [PSA] (principal)
CPT/HCPCS: 36415; 84153